=== PATIENT | male | born 1945 | race Caucasian/White ===

== ENCOUNTER 2018-06-21 12:46 | Outpatient (REF) | payer MEDICARE, SELFPAY ==
[2018-06-21 13:39] LABS: Hemoglobin A1C 5.9 % (4.5-6.2)
== END 2018-06-21 13:06 ==
LOC: LBN 12:46
PROVIDERS: PCP Family Medicine; Visit Provider Family Medicine
DX: E11.40 Type 2 diabetes mellitus with diabetic neuropathy, unspecified (principal)
CPT/HCPCS: 83036

== ENCOUNTER 2018-08-16 15:35 | Outpatient (REF) | payer MEDICARE, SELFPAY ==
[2018-08-16 16:38] LABS: Bilirubin Negative (Negative); Blood Small (Negative); Clarity Sl Cloudy; Glucose Negative (Negative); Ketones Trace mg/dL (Negative); Leukocyte Esterase Moderate (Negative); Nitrite Negative (Negative); Specific Gravity 1.015 (1.005-1.025); pH 6.5 (5-8)
[2018-08-16 16:44] LABS: Bacteria Many HPF (Negative); C & S Indicated? Yes; Casts Negative LPF (Negative); Crystals Negative HPF (Negative); Epithelial Cells Negative HPF (Negative); Mucus Negative (Negative); Other Cells Negative (Negative)
== END 2018-08-16 15:55 ==
LOC: LBN 15:35
PROVIDERS: PCP Family Medicine; Visit Provider Family Medicine
DX: N39.0 Urinary tract infection, site not specified (principal)
CPT/HCPCS: 87077; 81003; 81015; 87086; 87186

== ENCOUNTER 2018-09-17 11:49 | Outpatient (REF) | payer MEDICARE, SELFPAY ==
[2018-09-17 13:36] LABS: ALT 48 U/L (12-78); AST 30 U/L (15-37); Albumin 3.8 g/dL (3.4-5.0); Alkaline Phosphatase 128 U/L (46-116); Anion Gap 10.2 mmol/L (3-11); BUN 25 mg/dL (7-18); Bilirubin, Total 0.5 mg/dL (0.2-1.0); CO2 27.8 mmol/L (21.0-32.0); CREATININE 0.88 mg/dL (0.70-1.30); Calcium 9.3 mg/dL (8.5-10.1); Chloride 103 mmol/L (98-107); Cholesterol 121 mg/dL (50-200); Glucose 143 mg/dL (70-100); HDL Cholesterol 49 mg/dL (40-60); LDL CHOLESTEROL 59 mg/dL (<100); Sodium 141 mmol/L (136-145); Total Protein 7.7 g/dL (6.4-8.2); Triglyceride 45 mg/dL (30-150)
== END 2018-09-17 12:09 ==
LOC: LBN 11:49
PROVIDERS: PCP Family Medicine; Visit Provider Family Medicine
DX: I10 Essential (primary) hypertension (principal); E11.9 Type 2 diabetes mellitus without complications
CPT/HCPCS: 80053; 80061; 83721; 83036

== ENCOUNTER 2018-12-25 11:46 | Outpatient (REF) | payer MEDICARE, SELFPAY ==
[2018-12-25 13:55] LABS: Hemoglobin A1C 7.3 % (4.5-6.2)
== END 2018-12-25 12:06 ==
LOC: LBN 11:46
PROVIDERS: PCP Family Medicine; Visit Provider Family Medicine
DX: E11.40 Type 2 diabetes mellitus with diabetic neuropathy, unspecified (principal)
CPT/HCPCS: 83036

== ENCOUNTER 2019-03-17 15:58 | Outpatient (REF) | payer MEDICARE, SELFPAY ==
[2019-03-17 12:01] LABS: Hemoglobin A1C 6.6 % (4.5-6.2)
[2019-03-17 12:03] LABS: ALT 88 U/L (12-78); AST 56 U/L (15-37); Albumin 4.1 g/dL (3.4-5.0); Alkaline Phosphatase 140 U/L (46-116); Anion Gap 11.8 mmol/L (3-11); BUN 21 mg/dL (7-18); Bilirubin, Total 0.5 mg/dL (0.2-1.0); CO2 28.2 mmol/L (21.0-32.0); CREATININE 0.97 mg/dL (0.70-1.30); Calcium 8.9 mg/dL (8.5-10.1); Calculated LDL 74; Chloride 100 mmol/L (98-107); Cholesterol 149 mg/dL (50-200); Glucose 183 mg/dL (70-100); HDL Cholesterol 53 mg/dL (40-60); Sodium 140 mmol/L (136-145); Total Protein 8.1 g/dL (6.4-8.2); Triglyceride 112 mg/dL (30-150)
== END 2019-03-17 16:18 ==
LOC: LBN 15:58
PROVIDERS: PCP Family Medicine; Visit Provider Family Medicine
DX: E11.40 Type 2 diabetes mellitus with diabetic neuropathy, unspecified (principal); I10 Essential (primary) hypertension; I87.2 Venous insufficiency (chronic) (peripheral)
CPT/HCPCS: 80053; 80061; 83721; 83036

== ENCOUNTER 2019-05-06 09:19 | Outpatient (REF) | payer MEDICARE, SELFPAY ==
[2019-05-06 10:50] LABS: Hemoglobin A1C 6.3 % (4.5-6.2)
== END 2019-05-06 09:39 ==
LOC: LBN 09:19
PROVIDERS: PCP Family Medicine; Visit Provider Family Medicine
DX: E11.40 Type 2 diabetes mellitus with diabetic neuropathy, unspecified (principal)
CPT/HCPCS: 83036

== ENCOUNTER 2019-06-17 16:44 | Outpatient (REF) | payer MEDICARE, SELFPAY ==
[2019-06-17 15:02] LABS: BUN 20 mg/dL (7-18); CREATININE 0.78 mg/dL (0.70-1.30); Calcium 8.8 mg/dL (8.5-10.1); Chloride 102 mmol/L (98-107); Glucose 197 mg/dL (70-100); Potassium 4.3 mmol/L (3.5-5.1); Sodium 140 mmol/L (136-145)
[2019-06-17 15:25] LABS: Hemoglobin A1C 6.5 % (4.5-6.2)
== END 2019-06-17 17:04 ==
LOC: LBN 16:44
PROVIDERS: PCP Family Medicine; Visit Provider Nurse Practitioner Gerontology
DX: E11.9 Type 2 diabetes mellitus without complications (principal); I10 Essential (primary) hypertension
CPT/HCPCS: 80048; 83036

== ENCOUNTER 2019-09-16 11:36 | Outpatient (REF) | payer MEDICARE, MEDICAID, SELFPAY ==
[2019-09-16 12:48] LABS: Hemoglobin A1C 6.3 % (4.5-6.2)
[2019-09-16 13:06] LABS: ALT 39 U/L (16-63); AST 19 U/L (15-37); Alkaline Phosphatase 94 U/L (46-116); Anion Gap 10.8 mmol/L (3-11); BUN 15 mg/dL (7-18); Bilirubin, Total 0.6 mg/dL (0.2-1.0); CO2 29.2 mmol/L (21.0-32.0); CREATININE 0.69 mg/dL (0.70-1.30); Calcium 9.2 mg/dL (8.5-10.1); Calculated LDL 78 mg/dL; Chloride 102 mmol/L (98-107); Cholesterol 142 mg/dL (<200); Glucose 56 mg/dL (74-106); HDL Cholesterol 51 mg/dL (40-60); Potassium 4.1 mmol/L (3.5-5.1); Sodium 142 mmol/L (136-145); Total Protein 7.6 g/dL (6.4-8.2); Triglyceride 69 mg/dL (<150)
== END 2019-09-16 11:56 ==
LOC: LBO 11:36
PROVIDERS: PCP Family Medicine; Visit Provider Nurse Practitioner Gerontology
DX: I10 Essential (primary) hypertension (principal); E11.40 Type 2 diabetes mellitus with diabetic neuropathy, unspecified
CPT/HCPCS: 80053; 80061; 83036

== ENCOUNTER 2019-11-10 11:06 | Outpatient (REF) | payer MEDICARE, MEDICAID, SELFPAY ==
[2019-11-10 11:49] LABS: Anion Gap 9.3 mmol/L (3-11); BUN 25 mg/dL (7-18); CO2 26.7 mmol/L (21.0-32.0); CREATININE 1.41 mg/dL (0.70-1.30); Chloride 107 mmol/L (98-107); Estimated GFR 49.55 (mL/min/1.73m2); Glucose 112 mg/dL (74-106); Potassium 3.7 mmol/L (3.5-5.1); Sodium 143 mmol/L (136-145)
== END 2019-11-10 11:26 ==
LOC: LBN 11:06
PROVIDERS: PCP Family Medicine; Visit Provider Family Medicine
DX: I10 Essential (primary) hypertension (principal); E11.40 Type 2 diabetes mellitus with diabetic neuropathy, unspecified
CPT/HCPCS: 80048

== ENCOUNTER 2019-12-22 14:45 | Outpatient (REF) | payer MEDICARE, MEDICAID, SELFPAY ==
[2019-12-22 13:09] LABS: Anion Gap 11.4 mmol/L (3-11); BUN 18 mg/dL (7-18); CO2 26.6 mmol/L (21.0-32.0); CREATININE 0.82 mg/dL (0.70-1.30); Calcium 9.3 mg/dL (8.5-10.1); Chloride 101 mmol/L (98-107); Glucose 207 mg/dL (74-106); Potassium 4.3 mmol/L (3.5-5.1); Sodium 139 mmol/L (136-145)
[2019-12-22 13:24] LABS: Hemoglobin A1C 7.6 % (3.8-5.6)
== END 2019-12-22 15:05 ==
LOC: LBN 14:45
PROVIDERS: PCP Family Medicine; Visit Provider Family Medicine
DX: E11.40 Type 2 diabetes mellitus with diabetic neuropathy, unspecified (principal); I10 Essential (primary) hypertension; E11.65 Type 2 diabetes mellitus with hyperglycemia
CPT/HCPCS: 80048; 83036

== ENCOUNTER 2020-01-22 15:36 | Outpatient (REF) | payer MEDICARE, MEDICAID, SELFPAY ==
[2020-01-22 16:03] LABS: Anion Gap 11.8 mmol/L (3-11); BUN 28 mg/dL (7-18); CO2 24.2 mmol/L (21.0-32.0); CREATININE 0.97 mg/dL (0.70-1.30); Calcium 9.1 mg/dL (8.5-10.1); Chloride 99 mmol/L (98-107); Glucose 438 mg/dL (74-106); Potassium 4.5 mmol/L (3.5-5.1); Sodium 135 mmol/L (136-145)
[2020-01-22 16:11] LABS: Abs Immature Grans 0.02 k/cumm (0.0-0.09); Absolute Basophil Count 0.02 k/cumm (0.0-0.2); Absolute Eosinophil Count 0.15 k/cumm (0.0-0.7); Absolute Monocyte Count 0.84 k/cumm (0.11-0.7); Absolute Neutrophil Count 5.73 k/cumm (1.2-6.7); Basophils % 0.2; Eosinophils % 1.7; HCT 44.1 % (40.0-50.0); HGB 15.2 g/dL (13.5-17.5); Immature Grans % 0.2 %; Lymphocytes % 24.6; Mean Corp. HGB Concentration 34.5 g/dL (32.0-36.0); Mean Corpuscular Hemoglobin 31.5 pg (27.0-33.0); Mean Corpuscular Volume 91.3 fL (80-95); Mean Platelet Volume 11.9 fL (8.0-11.0); Monocytes % 9.4; Neutrophils % 63.9; Platelet Count 187 x1000/uL (130-400); RBC 4.83 m/cumm (4.50-6.00); RBC Distribution Width 12.6 % (11.8-14.1); White Blood Cell Count 8.96 k/cumm (4.4-10.8)
== END 2020-01-22 15:56 ==
LOC: NCHCN 15:36
PROVIDERS: Nurse Practitioner Gerontology; PCP Family Medicine; Visit Provider Family Medicine
DX: I10 Essential (primary) hypertension (principal)
CPT/HCPCS: 80048; 85025

== ENCOUNTER 2020-01-27 10:30 | Outpatient (REF) | payer MEDICARE, MEDICAID, SELFPAY ==
[2020-01-27 10:48] LABS: Abs Immature Grans 0.06 k/cumm (0.0-0.09); HCT 51.1 % (40.0-50.0); HGB 17.1 g/dL (13.5-17.5); Mean Corp. HGB Concentration 33.5 g/dL (32.0-36.0); Mean Corpuscular Hemoglobin 31.2 pg (27.0-33.0); Mean Corpuscular Volume 93.2 fL (80-95); Mean Platelet Volume 12.6 fL (8.0-11.0); Platelet Count 245 x1000/uL (130-400); RBC 5.48 m/cumm (4.50-6.00); RBC Distribution Width 13.1 % (11.8-14.1); White Blood Cell Count 18.74 k/cumm (4.4-10.8)
[2020-01-27 10:52] LABS: Anion Gap 19.4 mmol/L (3-11); BUN 61 mg/dL (7-18); CO2 19.6 mmol/L (21.0-32.0); CREATININE 2.81 mg/dL (0.70-1.30); Calcium 9.9 mg/dL (8.5-10.1); Chloride 108 mmol/L (98-107); Estimated GFR 22.29 (mL/min/1.73m2); Potassium 4.3 mmol/L (3.5-5.1); Sodium 147 mmol/L (136-145)
[2020-01-27 11:08] LABS: Glucose 947 mg/dL (74-106)
[2020-01-27 11:20] LABS: Absolute Basophil Count 0.19 k/cumm (0.0-0.2); Absolute Eosinophil Count 0.19 k/cumm (0.0-0.7)
[2020-01-27 11:21] LABS: Absolute Lymphocyte Count 1.31 k/cumm (1.2-3.4); Absolute Monocyte Count 1.69 k/cumm (0.11-0.7); Absolute Neutrophil Count 15.37 k/cumm (1.2-6.7); Diff Comment Manual Differential; RBC Morphology Normal
== END 2020-01-27 10:50 ==
LOC: LBN 10:30
PROVIDERS: PCP Family Medicine; Visit Provider Family Medicine
DX: R73.01 Impaired fasting glucose (principal); I10 Essential (primary) hypertension; R68.89 Other general symptoms and signs
CPT/HCPCS: 80048; 85025

== ENCOUNTER 2020-01-27 12:02 | Emergency (ER) | payer MEDICARE, MEDICAID, SELFPAY ==
[2020-01-27] VITALS (10 sets, daily range): BP systolic 98–115; BP diastolic 52–77; PULSE 92–107; RESP 25–41; TEMP 36.4–36.7; O2SAT 83–95
--- NOTE | 2020-01-27 12:21 | ED.GENADUL_ITS ---
Discharge Plan Disposition Patient Disposition: SNF (LEVEL 1) [facility] Condition: Improving Discharge Details Chief Complaint: Diabetes Clinical Impression: Altered mental status, Dehydration, Hypoxemia, Acute hyperglycemia Primary Care Provider: Jennifer Cool ED Provider: Erik Marrero Home Meds and New Rx's Prescriptions: No Action glycopyrrolate 1 mg tablet 0.5 mg PO BID RF: 0 venlafaxine 75 mg capsule,extended release 24hr 75 mg PO DAILY RF: 0 venlafaxine 150 mg capsule,extended release 24hr 150 mg PO DAILY RF: 0 acetaminophen [Tylenol Extra Strength] 500 mg Tablet 500 mg PO BID RF: 0 triamcinolone acetonide 0.025 % cream 0.025 TOPICAL DAILY RF: 0 amlodipine 10 mg tablet 10 mg PO DAILY RF: 0 simvastatin 20 mg tablet 20 mg PO DAILY RF: 0 metformin 1,000 mg tablet 1,000 mg PO DAILY RF: 0 nystatin 100,000 unit/gram cream TOPICAL RF: 0 aspirin 81 mg Tablet,Chewable 81 mg PO DAILY RF: 0 hydrochlorothiazide 25 mg tablet 25 mg PO DAILY RF: 0 ergocalciferol (vitamin D2) [Vitamin D2] 1,250 mcg (50,000 unit) Capsule 50,000 unit PO DAILY RF: 0 ketoconazole 2 % cream 2 TOPICAL RF: 0 lisinopril 40 mg tablet 40 mg PO DAILY RF: 0 docusate sodium 100 mg Tablet 200 mg PO DAILY RF: 0 finasteride 5 mg tablet 5 mg PO DAILY RF: 0 Basaglar KwikPen U-100 Insulin 100 unit/mL (3 mL) insulin pen 10 unit SUBCUT DAILY RF: 0 Basaglar KwikPen U-100 Insulin 100 unit/mL (3 mL) insulin pen 40 unit SUBCUT DAILY RF: 0 Discharge Instructions Additional Instructions: Patient does have a mild increase in his oxygen demand. I would recommend continuing him on 4 L currently. He is currently refusing admission here in the hospital and has returned to a normal mental status now and is requesting to go back to the [facility] very clearly and specifically. We will leave the IV in, please give a 500 cc bolus of lactated Ringer's tomorrow over 2 to 4 hours. Monitor closely for any fever, worsening symptoms or changes. I would recommend making sure he is sitting completely upright whenever he eats and drinks as there is concern that he may be aspirating, although there is no evidence of aspiration pneumonia currently. Please continue to monitor his blood sugar and administer insulin as indicated. Referrals: Jennifer Cool [Primary Care Provider] - Medical Decision Making 74-year-old male with a past medical history of high cholesterol, diabetes, who resides at the [facility], who is normally fairly functional, with a CODE STATUS of DNR, DNI, limited treatment, requesting no transport unless management cannot be met at facility. Patient presents today for change in his baseline. His mental status and energy is notably diminished today, labs showed notably elevated blood sugar and white count. He was transferred to the ER for further management. Currently the patient has no other complaints. No other modifying factors. Patient is otherwise notably limited historian, and history is certainly limited. Exam demonstrates decreased mental status, GCS is 11, secondary to decreased verbal response. Patient's request for intervention is certainly limited. We will rehydrate, evaluate for infectious etiology and acute abnormality, monitor closely and reassess. 4:50 PM Laboratory work-up is returned, the patient does have an elevated white count, moderate left shift, and appears that he does not have bands though. No evidence of neutropenia or thrombocytopenia. No signs of lymphopenia. Sodium is slightly elevated at 147, bicarb is stable though at 24, anion gap is only 15. Creatinine is notably elevated at 3 which is atypical for him, GFR is 20 which is atypical. Glucose is 900. Troponin is elevated at 0.11, EKG shows no evidence of STEMI. Suspect dehydration as a cause of strain. proBNP minimally elevated at 1200. Ammonia slightly elevated at 54. Urinalysis shows no evidence of urinary tract infection. Chest x-ray negative for acute process or infection. CT scan of the head negative for acute process. Uncertain as to where the patient's white count is coming from, he shows no signs of clinical meningitis at this time. His wishes are clear that he wants notably limited intervention. We will give Xifaxan for the elevated ammonia level, I did contact Dr. Gómez, as well as the patient's Sister Shannon, and discussed with him the patient's wishes for how much more he would want done. At this time they do recommend keeping him overnight for fluids if he is not able to refuse, but do not want anything else aggressively done on the patient. We will continue to monitor his sugars. He has come down to 500 after an initial 20 and then a second 20 unit subcu bolus of insulin. On reassessment the patient's mental status is slightly improved with a liter of fluid, we will give an additional 500 cc of LR. We will continue to monitor closely, contact the hospitalist and admit. 5:20 PM On reassessment I went in to tell the patient with new plan he has had a notable mental status change towards improvement. He is now talking well, and I told him that I would like to admit him and he became very aggressive and said no no no, I want to go to the [facility]. I do not want to be in the hospital. I did contact Dr. Gómez, discussed this with her, as the patient's advanced directive state DNR/DNI limited with request not to transfer, and with the patient make any specific requests we will respect his wishes. Chest x-ray is negative for pneumonia, the patient has had mild hypoxemia here and is requiring 3 to 4 L of oxygen. Otherwise he looks very stable. With no evidence of a source of infection I do not feel that antibiotic treatment is indicated at this time. We will test for flu and COVID and I discussed this with the managing provider at the [facility]. They already have him in isolation as it is. The patient did have slight sputtering when he did drink some water here, I do wonder if there is a component of irritation or aspiration although there is no radiographic evidence of that at this time. Recommend that his facility they monitor him closely for any worsening of his symptoms. Again however at this time he has made it very clear that he wants to go back and does not want to be admitted. Respecting his wishes he will be brought back to the [facility]. This was all discussed with Dr. Gómez, she agrees and we will send the patient back to the [facility]. Also of note the patient's sugar has notably improved, this may certainly be a component of his initial symptomatology as well. There may have been a component of HH NK. Blood glucose is currently 328. EKG 12: 17 Rate 106, intervals stable, sinus tachycardia, no significant ST elevations or depressions, no evidence of STEMI. FINDINGS: Noncontrast cranial CT was performed. There is significant motion artifact which limits interpretation. There is moderate generalized cerebral atrophy. There is no evidence of acute intracranial hemorrhage, mass effect, or midline shift. The visualized paranasal sinuses and mastoid air cells are clear. The orbital and temporal bone structures appear intact as visualized. IMPRESSION: No evidence of acute intracranial process. FINDINGS: Portable AP view was obtained. The patient was unable to cooperate. There is cardiac enlargement. Lungs as visualized appear grossly clear. Left lower lobe poorly visualized due to positioning and cardiomegaly. IMPRESSION: Cardiomegaly, no gross intrapulmonary process. Left lung base not well visualized. HPI General Date/Time Provider Initiated Documentation: 01/27/20 12:03 . HPI Narrative: 74-year-old male with a past medical history of high cholesterol, diabetes, who resides at the [facility], who is normally fairly functional, with a CODE STATUS of DNR, DNI, limited treatment, requesting no transport unless management cannot be met at facility. Patient presents today for change in his baseline. His mental status and energy is notably diminished today, labs showed notably elevated blood sugar and white count. He was transferred to the ER for further management. Currently the patient has no other complaints. No other modifying factors. Patient is otherwise notably limited historian, and history is certainly limited. Related Data Home Medications Medication Instructions Recorded Confirmed acetaminophen [Tylenol Extra 500 mg PO BID 01/27/20 01/27/20 Strength] amlodipine 10 mg PO DAILY 01/27/20 01/27/20 aspirin 81 mg PO DAILY 01/27/20 01/27/20 docusate sodium 200 mg PO DAILY 01/27/20 01/27/20 ergocalciferol (vitamin D2) 50,000 unit PO DAILY 01/27/20 01/27/20 [Vitamin D2] finasteride 5 mg PO DAILY 01/27/20 01/27/20 glycopyrrolate 0.5 mg PO BID 01/27/20 01/27/20 hydrochlorothiazide 25 mg PO DAILY 01/27/20 01/27/20 insulin glargine [Basaglar KwikPen 10 unit SUBCUT DAILY 01/27/20 01/27/20 U-100 Insulin] insulin glargine [Basaglar KwikPen 40 unit SUBCUT DAILY 01/27/20 01/27/20 U-100 Insulin] ketoconazole 2 TOPICAL 01/27/20 lisinopril 40 mg PO DAILY 01/27/20 01/27/20 metformin 1,000 mg PO DAILY 01/27/20 01/27/20 nystatin TOPICAL 01/27/20 01/27/20 simvastatin 20 mg PO DAILY 01/27/20 01/27/20 triamcinolone acetonide 0.025 TOPICAL DAILY 01/27/20 venlafaxine 75 mg PO DAILY 01/27/20 01/27/20 venlafaxine 150 mg PO DAILY 01/27/20 01/27/20 Allergies Allergy/AdvReac Type Severity Reaction Status Date / Time NSAIDS (Non-Steroidal Allergy Unverified 01/27/20 17:17 Anti-Inflamma General Stated Complaint: Diabetes JANE: 2 Review of Systems All systems reviewed & are unremarkable except as noted in HPI and below [facility] Medical History (Updated 01/27/20 @ 18:05 by Erik Marrero DO) Bipolar disorder (Chronic) Diabetes mellitus (Chronic) Hypertension (Chronic) Social History Substance use type: does not use Exam Narrative Exam Narrative: 1.Const: Well-nourished, Well-developed, appearing stated age 2.Eyes: PERRL, no conjunctival injection, and symmetrical lids. 3.ENT: Atraumatic external nose and ears. Notably dry MM. Neck: Symmetric, trachea midline, No thyromegaly. No nuchal rigidities, no clinical evidence of meningitis. 4.CVS: +S1/S2, No murmurs or gallops. Peripheral pulses 2+ and equal in all extremities. Brisk capillary refill in all extremities. 5.RESP: Crackles in the bases bilaterally. No wheezes or rhonchi. 6.GI: Soft, Nontender/Nondistended, No hepatosplenomegaly. No guarding or rebound. 7.MSK: Normocephalic/Atraumatic, Extremities w/o deformity or ttp No cyanosis or clubbing, Normal movement of all extremities 8.Skin: Warm, Dry. No rashes or lesions. 9.Neuro: tack maker II-XII grossly intact. Sensation grossly intact 10.Psych: (AAO) x0. Altered, pleasantly confused, GCS is currently 11 secondary to decreased verbal response. Course Vital Signs Vital signs: Vital Signs Temperature 36.7 C 01/27/20 12:06 Pulse 107 H 01/27/20 12:06 Respiratory Rate 35 H 01/27/20 12:06 Blood Pressure 109/65 01/27/20 12:06 Pulse Oximetry 83 L 01/27/20 12:06 Temperature 36.7 C 01/27/20 12:06 Temperature Source Temporal Artery Scan 01/27/20 12:06 Pulse 107 H 01/27/20 12:06 Respiratory Rate 35 H 01/27/20 12:06 Respiratory Effort 01/27/20 12:12 Blood Pressure 109/65 01/27/20 12:06 Pulse Oximetry 83 L 01/27/20 12:06 Oxygen Delivery Method Room Air 01/27/20 12:06 Oxygen Flow Rate 0 01/27/20 12:06
[2020-01-27] MEDS: Normal Saline 1,000 ML 1000 ML IV (12:33)
[2020-01-27 12:54] LABS: Abs Immature Grans 0.07 k/cumm (0.0-0.09); HCT 49.6 % (40.0-50.0); HGB 16.8 g/dL (13.5-17.5); Mean Corp. HGB Concentration 33.9 g/dL (32.0-36.0); Mean Corpuscular Hemoglobin 31.1 pg (27.0-33.0); Mean Corpuscular Volume 91.7 fL (80-95); Mean Platelet Volume 12.1 fL (8.0-11.0); Platelet Count 234 x1000/uL (130-400); RBC 5.41 m/cumm (4.50-6.00); RBC Distribution Width 13.2 % (11.8-14.1); White Blood Cell Count 18.67 k/cumm (4.4-10.8)
--- NOTE | 2020-01-27 12:54 | NUR.NOTE ---
straight cath for urine spec technology professional. tolerated well. 200mls drained from bladder, dark yellow, sent to lab for spec
[2020-01-27 12:59] LABS: Bilirubin Negative (Negative); Blood Small (Negative); Clarity Clear (Clear); Glucose >=1000 mg/dL (Negative); Ketones Trace mg/dL (Negative); Leukocyte Esterase Negative (Negative); Nitrite Negative (Negative); Urobilinogen 0.2 EU/dL (Up TO 0.2)
[2020-01-27 13:03] LABS: Ammonia 54 umol/L (11-32)
[2020-01-27 13:06] LABS: Diff Comment Manual Differential
[2020-01-27 13:07] LABS: Absolute Lymphocyte Count 2.99 k/cumm (1.2-3.4); Absolute Monocyte Count 0.56 k/cumm (0.11-0.7); Absolute Neutrophil Count 15.12 k/cumm (1.2-6.7); Atypical Lymphocytes % 6; RBC Morphology Normal
[2020-01-27 13:11] LABS: Epithelial Cells Rare HPF (Negative); RBC 0-2 HPF (0-2); WBC 0-2 HPF (0-5)
[2020-01-27 13:12] LABS: Bacteria Few HPF (Negative); C & S Indicated? No; Casts Negative LPF (Negative); Crystals Negative HPF (Negative); Mucus Trace (Negative); Other Cells Negative (Negative)
[2020-01-27 13:13] LABS: ALT 52 U/L (16-63); AST 42 U/L (15-37); Albumin 3.8 g/dL (3.4-5.0); Alkaline Phosphatase 113 U/L (46-116); BUN 65 mg/dL (7-18); Bilirubin, Total 0.6 mg/dL (0.2-1.0); CREATININE 3.09 mg/dL (0.70-1.30); Calcium 9.9 mg/dL (8.5-10.1); Chloride 108 mmol/L (98-107); Estimated GFR 19.98 (mL/min/1.73m2); Potassium 3.8 mmol/L (3.5-5.1); Sodium 147 mmol/L (136-145); TSH (W/Ref FT4) 0.56 uIU/mL (0.36-3.74)
[2020-01-27 13:15] LABS: Glucose 913 mg/dL (74-106)
[2020-01-27 13:16] LABS: Troponin I 0.11 ng/Ml (<0.06)
--- NOTE | 2020-01-27 13:20 | DI.CT_ITS ---
EXAM: CT HEAD WO CLINICAL HISTORY: altered TECHNIQUE: COMPARISON: No exams were available for comparison FINDINGS: Noncontrast cranial CT was performed. There is significant motion artifact which limits interpretati on. There is moderate generalized cerebral atrophy. There is no evidence of acute intracranial hemorrhag e, mass effect, or midline shift. The visualized paranasal sinuses and mastoid air cells are clear. The orbital and temporal bone structures appear intact as visualized. IMPRESSION: No evidence of acute intracranial process.
--- NOTE | 2020-01-27 13:25 | DI.RAD_ITS ---
EXAM: XR CHEST 1V IN DI DEPT CLINICAL HISTORY: cough, r/o pneumonia TECHNIQUE: COMPARISON: No exams were available for comparison FINDINGS: Portable AP view was obtained. The patient was unable to cooperate. There is cardiac enlargement. Lungs as visualized appear grossly clear. Left lower lobe poorly visualized due to positioning and c ardiomegaly. IMPRESSION: Cardiomegaly, no gross intrapulmonary process. Left lung base not well visualized.
[2020-01-27] MEDS: Insulin REGULAR-Human 100 UNITS/ML UNIT 25 UNITS SC (13:37)
[2020-01-27] MEDS: Normal Saline 500 ML IV (14:04)
[2020-01-27 14:10] LABS: NT-proBNP 1271 pg/mL (<300)
--- NOTE | 2020-01-27 14:12 | NUR.NOTE ---
finger stick, reads high on meter
[2020-01-27] MEDS: Insulin REGULAR-Human 100 UNITS/ML UNIT 20 UNITS SC (14:25)
--- NOTE | 2020-01-27 15:04 | NUR.NOTE ---
repositioned on R side
--- NOTE | 2020-01-27 15:07 | NUR.NOTE ---
finger stick completed, results read high
--- NOTE | 2020-01-27 16:24 | NUR.NOTE ---
finger stick 502. repositioned on L side
[2020-01-27] MEDS: Lactated Ringers 500 ML IV (17:00)
--- NOTE | 2020-01-27 17:00 | NUR.NOTE ---
1st BC obtained with IV start
--- NOTE | 2020-01-27 17:14 | NUR.NOTE ---
semiconductor lab technician obtained second BC set from L hand. flu and covid swabs collected and sent to lab. pt alert, not answering questions. pad dry. noted to have skin abrasions with scabs forming on R elbow posterior lower arm.
[2020-01-27 23:53] LABS: COVID-19 RT-PCR UVMMC Result Negative (Negative)
== END 2020-01-27 16:30 | disposition skilled nursing facility (03) ==
PROVIDERS: Emergency Provider Student in an Organized Health Care Education/Training Program; PCP Family Medicine
DX: R41.82 Altered mental status, unspecified (principal); E86.0 Dehydration; R09.02 Hypoxemia; R06.89 Other abnormalities of breathing; I10 Essential (primary) hypertension; E11.65 Type 2 diabetes mellitus with hyperglycemia; Z79.4 Long term (current) use of insulin
CPT/HCPCS: 36416; 80053; 82962; 87040; 87449; 93005; 96360; 96361; 96372; 99285; U0003; 70450; 71045; 81003; 81015; 82140; 83880; 84443; 84484; 85025; 93010; 99284

== ENCOUNTER 2020-02-02 16:42 | Outpatient (REF) | payer MEDICARE, MEDICAID, SELFPAY ==
[2020-02-02 16:45] LABS: Abs Immature Grans 0.05 k/cumm (0.0-0.09); Absolute Basophil Count 0.02 k/cumm (0.0-0.2); Absolute Eosinophil Count 0.19 k/cumm (0.0-0.7); Absolute Lymphocyte Count 2.43 k/cumm (1.2-3.4); Absolute Monocyte Count 1.25 k/cumm (0.11-0.7); Basophils % 0.2; Eosinophils % 1.5; HCT 46.2 % (40.0-50.0); HGB 15.1 g/dL (13.5-17.5); Immature Grans % 0.4 %; Lymphocytes % 19.7; Mean Corp. HGB Concentration 32.7 g/dL (32.0-36.0); Mean Corpuscular Hemoglobin 31.1 pg (27.0-33.0); Mean Corpuscular Volume 95.3 fL (80-95); Mean Platelet Volume 13.4 fL (8.0-11.0); Monocytes % 10.1; Neutrophils % 68.1; Platelet Count 175 x1000/uL (130-400); RBC 4.85 m/cumm (4.50-6.00); RBC Distribution Width 13.6 % (11.8-14.1); White Blood Cell Count 12.34 k/cumm (4.4-10.8)
[2020-02-02 17:18] LABS: ALT 56 U/L (16-63); AST 33 U/L (15-37); Alkaline Phosphatase 139 U/L (46-116); Anion Gap 12.8 mmol/L (3-11); BUN 37 mg/dL (7-18); Bilirubin, Total 0.4 mg/dL (0.2-1.0); CO2 24.2 mmol/L (21.0-32.0); CREATININE 1.48 mg/dL (0.70-1.30); Calcium 8.7 mg/dL (8.5-10.1); Chloride 112 mmol/L (98-107); Estimated GFR 46.72 (mL/min/1.73m2); Glucose 422 mg/dL (74-106); NT-proBNP 220 pg/mL (<300); Potassium 4.2 mmol/L (3.5-5.1); Sodium 149 mmol/L (136-145); Total Protein 7.5 g/dL (6.4-8.2)
== END 2020-02-02 17:02 ==
LOC: LBN 16:42
PROVIDERS: PCP Family Medicine; Visit Provider Family Medicine
DX: E11.8 Type 2 diabetes mellitus with unspecified complications (principal); I10 Essential (primary) hypertension; F31.9 Bipolar disorder, unspecified; R06.89 Other abnormalities of breathing
CPT/HCPCS: 80053; 83880; 85025

== ENCOUNTER 2020-03-02 19:18 | Outpatient (REF) | payer MEDICARE, MEDICAID, SELFPAY ==
[2020-03-02 16:42] LABS: HCT 46.5 % (40.0-50.0); HGB 15.6 g/dL (13.5-17.5); Mean Corp. HGB Concentration 33.5 g/dL (32.0-36.0); Mean Corpuscular Hemoglobin 30.4 pg (27.0-33.0); Mean Corpuscular Volume 90.6 fL (80-95); Mean Platelet Volume 11.2 fL (8.0-11.0); Platelet Count 162 x1000/uL (130-400); RBC 5.13 m/cumm (4.50-6.00); RBC Distribution Width 13.5 % (11.8-14.1); White Blood Cell Count 7.12 k/cumm (4.4-10.8)
[2020-03-02 16:46] LABS: Anion Gap 7.7 mmol/L (3-11); BUN 17 mg/dL (7-18); CO2 27.3 mmol/L (21.0-32.0); CREATININE 0.78 mg/dL (0.70-1.30); Chloride 102 mmol/L (98-107); Glucose 129 mg/dL (74-106); Potassium 4.1 mmol/L (3.5-5.1); Sodium 137 mmol/L (136-145)
== END 2020-03-02 19:38 ==
LOC: LBN 19:18
PROVIDERS: PCP Family Medicine; Visit Provider Family Medicine
DX: D64.9 Anemia, unspecified (principal); E11.9 Type 2 diabetes mellitus without complications
CPT/HCPCS: 80048; 85027

== ENCOUNTER 2020-04-02 10:48 | Outpatient (REF) | payer MEDICARE, MEDICAID, SELFPAY ==
[2020-04-02 11:55] LABS: Anion Gap 11.3 mmol/L (3-11); BUN 18 mg/dL (7-18); CO2 24.7 mmol/L (21.0-32.0); CREATININE 0.88 mg/dL (0.70-1.30); Chloride 103 mmol/L (98-107); Glucose 237 mg/dL (74-106); Sodium 139 mmol/L (136-145)
== END 2020-04-02 11:08 ==
LOC: LBN 10:48
PROVIDERS: PCP Family Medicine; Visit Provider Family Medicine
DX: E11.9 Type 2 diabetes mellitus without complications (principal); F31.81 Bipolar II disorder; G20 Parkinson's disease
CPT/HCPCS: 80048

== ENCOUNTER 2020-04-28 12:37 | Outpatient (CLI) | payer MEDICARE, MEDICAID, SELFPAY ==
--- NOTE | 2020-04-28 | DI.RAD_ITS ---
EXAM: XR SHOULDER RT COMPLETE 2+V CLINICAL HISTORY: CONTINUED PAIN, IMMOBILITY, ? FX HUMERUS/DISLOCATION TECHNIQUE: 2D digital imaging was performed. COMPARISON: CR XR CHEST 1V IN DI DEPT from 01/27/2020 FINDINGS: A single view was performed. Humeral head is dislocated anteriorly and inferomedially with respect t o the glenoid. There is a fracture fragment from the lateral aspect of the humeral head which is sig nificantly displaced laterally and inferiorly. There is spurring at the AC joint and glenoid. There is a fracture right 4th rib of indeterminate age. It was not seen on chest x-ray of 27 January 2020. No pneumothorax is seen. IMPRESSION: Anterior shoulder dislocation with fracture of the humeral head.
== END 2020-04-28 12:57 ==
PROVIDERS: PCP Family Medicine; Visit Provider Family Medicine
DX: S42.201A Unspecified fracture of upper end of right humerus, initial encounter for closed fracture (principal)
CPT/HCPCS: 73030

== ENCOUNTER 2020-04-28 14:20 | Observation (INO) | payer MEDICARE, MEDICAID, SELFPAY ==
[2020-04-28] VITALS (40 sets, daily range): BP systolic 147–204; BP diastolic 70–97; PULSE 75–103; RESP 17–33; TEMP 37.1–37.3; O2SAT 91–96
--- NOTE | 2020-04-28 14:49 | ED.GENADUL_ITS ---
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 He had initial x-rays with a fracture dislocation of the right shoulder. Initial attempts at reduction in the ED were unsuccessful and therefore he was recommended to proceed to the OR once he was adequately NPO. However, The [facility] was unable to transport him back and forth so he was admitted overnight for obversation for pain control and closed reduction vs ORIF in the morning. He was taken to the operating room on HD#2. Discharge Instructions Additional Instructions: Activity: You should stay in the sling at all times. It may be removed for hygiene but the arm should stay on your belly or chest, in front of you. Do NOT attempt to use it for reaching or pushing off. Medications: - You should take Acetaminophen and Ibuprofen for pain control. - Keep ice applied to the shoulder. Discharge Data Discharge Date/Time-TO BE ENTERED AT DEPARTURE: 04/28/20 19:35 Medical Decision Making <CODY Angeles - Last Filed: 04/29/20 08:07> 74-year-old gentleman presents to the ER with a known right humeral fracture and dislocation. Dr. Angeles has been paged. In the meantime we are trying to get records from the [facility] for additional information. Dr. Angeles did come to the ER to evaluate the patient, please see his note. As we do not know his baseline mental status will obtain CT of his head. We are still trying to obtain records from the long-term. It is unknown when he last ate, what his baseline mental status is, or if he is his own healthcare proxy. I was able to speak with Dr. Gómez, the physician for the long-term. She reports the patient is a DNR-DNI. He apparently was found this morning lying on the ground near his bed with a pillow under his head. There is no other obvious trauma, a fall was unwitnessed. He seemed to be at baseline at that time. He did eat breakfast and lunch. He does have a long psychiatric history, is fairly quiet at baseline with occasional outbursts. He is his own healthcare proxy. Head CT pending at sign of patient transfer care to CODY Vang. Medical Records Medical records reviewed: Yes I reviewed the patient's medical records. Imaging Data Radiologic Study: Attestation: I personally reviewed and interpreted this imaging study as follows: Imaging: X-Ray My impression: Anterior shoulder dislocation with fracture of the humeral head. <CODY Hovoer - Last Filed: 04/28/20 21:27> Transition to myself from Kiran Esparza PA-C with shoulder reduction and head CT pending. Please review his initial note for history and presentation. In brief, patient is a 74-year-old gentleman who resides at the [facility] presenting for evaluation of right shoulder pain. Patient suffered an unwitnessed fall. Was found to be in his room by staff. Outpatient x-ray was ordered showing impacted and dislocated right shoulder. They advised that the patient is at his mental baseline. He is not endorsing headache or head injury. He was resting on his pillow when they found him. There was question about patient's mental capacity, he is his own healthcare proxy, patient is legally independent. Last ate at noon. Head CT was ordered to evaluate for any intracranial pathology as it was unclear how the patient may have fallen. Patient reports to me that he pulled out of his bed landing on his right shoulder. CT reviewed by radiologist: FINDINGS: Brain: Normal. No hemorrhage. Unremarkable white matter. No mass effect. Ventricles: Normal. No ventriculomegaly. Bones/joints: Unremarkable. No acute fracture. Sinuses: Visualized sinuses are unremarkable. No fluid levels. Mastoid air cells: Visualized mastoid air cells are well aerated. Soft tissues: Unremarkable. IMPRESSION: No acute intracranial abnormality Patient and I discussed risks/benefits as well as expected procedural steps of reduction under procedural sedation. He voices understanding and wishes to proceed. Varbal consent obtained. Time out was preformed. Patient remained on monitor during procedure. Please see Dr. Angeles's note. Patient did tolerate this well. 0.5 mg of Ativan and 100 mcg of fentanyl were administered. Patient was able to relax for reduction but patient persistently would pop out. Dr. Angeles was concerned that patient is very unstable and will need surgical fixation. Postreduction film was obtained showing persistently dislocated shoulder. Dr. Angeles did review these films. Plan is for patient to go for surgical fixation of this at 730 tomorrow morning. His dislocation is too unstable to remain in place at this time. He is currently comfortable and in a sling. Will consult with the [facility] regarding transportation. Patient remains neurovascularly intact. Contacted the [facility]. They are unable to provide transportation from their facility here tomorrow morning for surgical intervention. Spoke again with Dr. Angeles. For this reason, plan to keep the patient overnight so that his surgical intervention may be performed without delay. Patient continues to be comfortable while here. Discussed transportation issue Dr. Angeles who agrees to admission. Discussed this plan with the patient who is in agreement. All his questions and concerns were addressed. HPI <CODY Angeles - Last Filed: 04/29/20 08:07> General Mode of arrival: EMS . Date/Time Provider Initiated Documentation: 04/28/20 14:27 . Limitations to Documentation: other (Baseline mental status) . Information obtained by: patient and EMS . HPI Narrative: 74-year-old gentleman who resides at the [facility]. He has a history of hypertension, diabetes, bipolar. He apparently had a fall this morning injuring his right shoulder. After he was displaying increased pain and limited range of motion he was sent to diagnostic imaging as an outpatient to have a x-ray. In diagnostic imaging he was noted to have a right humeral fracture-dislocation and sent to the ER for further ev aluation. Patient is a rather vague and poor historian, unable to tell me exactly what happened. We are in the process of trying to obtain records from the [facility]. Denies any other injury or trauma. Patient does report right shoulder pain. Related Data Home Medications Medication Instructions Recorded Confirmed acetaminophen [Tylenol Extra 500 mg PO BID 01/27/20 04/28/20 Strength] amlodipine 10 mg PO DAILY 01/27/20 04/28/20 aspirin 81 mg PO DAILY 01/27/20 04/28/20 docusate sodium 200 mg PO DAILY 01/27/20 04/28/20 ergocalciferol (vitamin D2) 50,000 unit PO DAILY 01/27/20 04/28/20 [Vitamin D2] finasteride 5 mg PO DAILY 01/27/20 04/28/20 glycopyrrolate 0.5 mg PO BID 01/27/20 04/28/20 hydrochlorothiazide 12.5 mg PO DAILY 01/27/20 04/28/20 insulin glargine [Basaglar KwikPen 20 unit SUBCUT HS 01/27/20 04/28/20 U-100 Insulin] insulin glargine [Basaglar KwikPen 40 unit SUBCUT DAILY 01/27/20 04/28/20 U-100 Insulin] lisinopril 40 mg PO DAILY 01/27/20 04/28/20 simvastatin 20 mg PO DAILY 01/27/20 04/28/20 venlafaxine 75 mg PO DAILY 01/27/20 04/28/20 venlafaxine 150 mg PO DAILY 01/27/20 04/28/20 insulin aspart U-100 [Novolog See Protocol SUBCUT QA 04/28/20 Flexpen U-100 Insulin] Allergies Allergy/AdvReac Type Severity Reaction Status Date / Time NSAIDS (Non-Steroidal Allergy Unverified 04/28/20 14:30 Anti-Inflamma General Stated Complaint: Orthopedic JANE: 3 Review of Systems <CODY Angeles - Last Filed: 04/29/20 08:07> Unobtainable due to mental condition [facility] <CODY Angeles - Last Filed: 04/29/20 08:07> Medical History Antisocial personality disorder (Acute) Bipolar disorder (Chronic) Chronic kidney disease (Acute) Depression (Chronic) Diabetes mellitus (Chronic) Hypertension (Chronic) Parkinson disease (Chronic) Thrombocytopenia (Chronic) Venous insufficiency (Acute) Social History Smoking/Tobacco Use Status: Former Tobacco Use Alcohol Intake: former Substance use type: does not use Additional Social history: pt at the [facility] Exam <CODY Angeles - Last Filed: 04/29/20 08:07> Const General: cooperative, healthy appearing, comfortable and no acute distress Orientation: alert, awake and other (Difficult to determine secondary to his mental status) [facility] Head: normal to inspection, no palpable skull fracture, normocephalic and atraumatic Face and sinus: normal facial exam Mouth: moist mucous membranes Eyes Conjunctivae: conjunctivae normal Sclera: sclerae normal Neck Neck: normal visual inspection, full ROM, trachea midline, supple and nontender Resp Effort & Inspection: normal respiratory effort and able to speak in complete sentences Auscultation: clear to auscultation bilaterally Cardio Rate: regular rate Rhythm: regular rhythm GI Palpation: soft and nontender Back/Spine/Pelvis Back: No back tenderness Skin General skin exam: no rashes or lesions noted Neuro General: patient alert, patient awake, oriented Patient Orientation: Person, Place and Confused (Unsure of date), moves all extremities, no focal motor deficits and other (As above, difficult to assess secondary to mental status) Motor: muscle tone normal throughout Sensory Exam: no sensory deficits noted Extrem Right upper extremity: normal capillary refill and shoulder/upper arm Details: tenderness Location: of the proximal humerus, axillary nerve sensory function normal and abnormal ROM Left upper extremity: normal to inspection, full ROM and normal capillary refill Right lower extremity: normal to inspection, full ROM and normal capillary refill Left lower extremity: normal to inspection, full ROM and normal capillary refill Psych Appearance: grossly normal Mental Status: mental status grossly normal Course <CODY Angeles - Last Filed: 04/29/20 08:07> Vital Signs Vital signs: Vital Signs Temperature 37.1 C 04/28/20 14:22 Pulse 103 H 04/28/20 14:22 Respiratory Rate 18 04/28/20 14:22 Blood Pressure 168/82 H 04/28/20 14:22 Pulse Oximetry 91 L 04/28/20 14:22 Temperature 37.1 C 04/28/20 14:22 Temperature Source Temporal Artery Scan 04/28/20 14:22 Pulse 103 H 04/28/20 14:22 Respiratory Rate 18 04/28/20 14:22 Respiratory Effort Non-Labored 04/28/20 14:28 Blood Pressure 168/82 H 04/28/20 14:22 Blood Pressure Position Supine 04/28/20 14:22 Pulse Oximetry 91 L 04/28/20 14:22 Oxygen Delivery Method Room Air 04/28/20 14:22 Oxygen Flow Rate 0 04/28/20 14:22 Pain Level 10 04/28/20 14:22 Sign Out <CODY Angeles - Last Filed: 04/29/20 08:07> Sign Out Data: Sign Out Comment: Pending head CT, reevaluation by Dr. Angeles. Last updated by Ashwin Esparza PA at 04/28/20 16:24
--- NOTE | 2020-04-28 15:30 | DI.CT_ITS ---
EXAM: CT HEAD WO CLINICAL HISTORY: fall, ams. TECHNIQUE: Imaging Protocol: Axial computed tomography images with coronal and sagittal reformatted images were created and reviewed COMPARISON: No exams were available for comparison FINDINGS: Ventricles and Extra axial spaces: Normal in size and morphology for the patient's age. Hemorrhage: None. Cerebral parenchyma: Mild atrophy. Mild white matter changes consistent with small vessel disease. Midline shift: None. Brainstem/Cerebellum: Normal. Calvarium: Normal. Visualized Paranasal sinuses/Mastoids: Clear. IMPRESSION: No acute abnormality. RADIATION DOSE DELIVERED: 922.97mGy.cm Total DLP 922.97mGy.cm Total DLP DATA REPOSITORY: All CT scans at this facility are submitted to the National Radiology Data Registry (NRDR) Dose Index Registry (DIR) with the [employer] (ACR). RADIATION OPTIMIZATION: All CT scans at this facility use at least one of these dose optimization te chniques: automated exposure control; mA and/or kV adjustment per patient size (includes targeted exa ms where dose is matched to clinical indication); or iterative reconstruction.
--- NOTE | 2020-04-28 16:50 | DI.VRAD_ITS ---
PROCEDURE INFORMATION: Exam: CT Head Without Contrast Exam date and time: 04/28/2020 4:25 PM Age: 74 years old Clinical indication: Injury or trauma; Fall; Injury details: Fell, hit head, dislocated shoulder TECHNIQUE: Imaging protocol: Computed tomography of the head without contrast. COMPARISON: CT HEAD WO 01/27/2020 1:17 PM FINDINGS: Brain: Normal. No hemorrhage. Unremarkable white matter. No mass effect. Ventricles: Normal. No ventriculomegaly. Bones/joints: Unremarkable. No acute fracture. Sinuses: Visualized sinuses are unremarkable. No fluid levels. Mastoid air cells: Visualized mastoid air cells are well aerated. Soft tissues: Unremarkable. IMPRESSION: No acute intracranial abnormality. Dictated and Authenticated by: Geovani Bhakta MD. Ordering:VISHNU Christopher MD
--- NOTE | 2020-04-28 17:41 | DI.RAD_ITS ---
EXAM: XR SHOULDER RT COMP POST REDUC CLINICAL HISTORY: post reduction. TECHNIQUE: 2D digital imaging was performed. COMPARISON: CR XR SHOULDER RT COMPLETE 2+V from 04/28/2020 FINDINGS: Two additional views of the right shoulder performed portably. There has been no change in the posit ion of the humeral head, dislocated anteriorly and inferiorly with respect to the glenoid. A fractur e fragment is again noted from the humeral head which is significantly displaced. No glenoid fractur e is visible. IMPRESSION: No change in anterior shoulder dislocation with fracture of the humeral head. DATA REPOSITORY: RADIATION DOSE DELIVERED:
[2020-04-28] MEDS: LORazepam 2 MG/ML VIAL 0.5 MG IVP (17:47)
[2020-04-28] MEDS: fentaNYL 100 MCG/2 ML VIAL IVP (17:50)
--- NOTE | 2020-04-28 18:07 | DI.VRAD_ITS ---
PROCEDURE INFORMATION: Exam: XR Right Shoulder Exam date and time: 04/28/2020 5:53 PM Age: 74 years old Clinical indication: Pain; Shoulder; Right TECHNIQUE: Imaging protocol: XR Right shoulder. Views: 2 or more views. COMPARISON: CR XR SHOULDER RT COMPLETE 2+V 04/28/2020 1:57 PM FINDINGS: Bones/joints: Anterior dislocation of the glenohumeral joint.No definite associated fracture. Soft tissues: Normal. IMPRESSION: Anterior dislocation of the glenohumeral joint.No definite associated fracture. Dictated and Authenticated by: Geovani Bhakta MD. Ordering:WESTLEY Brasher MD
[2020-04-28 18:52] LABS: Abs Immature Grans 0.03 10^3/uL (0.0-0.06); Absolute Basophil Count 0.01 10^3/uL (0.0-0.2); Absolute Eosinophil Count 0.01 10^3/uL (0.0-0.7); Absolute Lymphocyte Count 1.37 10^3/uL (1.2-3.4); Absolute Monocyte Count 1.12 10^3/uL (0.1-0.8); Basophils % 0.1; Eosinophils % 0.1; HCT 39.1 % (40.0-50.0); HGB 13.5 g/dL (13.5-17.5); Immature Grans % 0.3; Lymphocytes % 12.5; MCH 31.3 pg (27.0-33.0); MCHC 34.5 % (32.0-36.0); MCV 90.5 fL (80-95); MPV 10.8 fL (8.0-11.0); Monocytes % 10.2; Neutrophils % 76.8; Platelet Count 171 10^3/uL (130-400); RBC 4.32 10^6/uL (4.36-5.78); RDW 12.3 % (11.8-14.1); RDW-SD 40.9 fL; WBC 10.98 10^3/uL (4.4-10.8)
[2020-04-28 18:53] LABS: Absolute Neutrophil Count 8.43 10^3/uL (1.2-6.7)
--- NOTE | 2020-04-28 18:59 | W.ORTHOCONSU ---
Date of service: 04/28/20 Time of Service: 17:59 History of Present Illness History of Present Illness Chief Complaint: Right Shoulder Pain Narrative: Anjel is a 74 year old resident of the [facility] who has found down by his bed this morning. Once he was helped off of the floor he had right shoulder pain that was noticed during the day and he was sent for an xray which showed a right shoulder fracture dislocation. He was seen in the ED after this was seen on the xray where I was consulted. History is very difficult to obtain and see does not speak very often and usually only 1 word. However, he reports pain about the right arm. He denies numbness or tingling. He denies issues with her shoulder prior to the fall. He denies any neck pain. Consults Consult date: 04/28/20 Requesting physician: Ashwin Esparza Consult Reason Right shoulder fracture dislocation Assessment and Plan Assessment and plan (1) Fracture dislocation of right shoulder joint: Status: Acute Assessment and plan: Anjel is a 74-year-old with multiple medical comorbidities who was found down this morning. He has a right shoulder fracture dislocation. It is grossly unstable. Unfortunately, during the procedure to reduce the shoulder, which was under sedated, I was able to get what seemed to be a reduction release perching him to the glenoid with immediate fall back into the anterior space. He was somewhat spastic which did make it hard. After this failed, the next that would be reduction with more sedation on board. Given the volume in the ED and the patient's preference, he would prefer this to be done in the operating room where he will be less alert and have more successful reduction. However, he had lunch at 1230 and therefore there is a delay in getting to the operating room., Given this scenario, recommended that we do this in the morning. However, the [facility] unable to guarantee any transportation back to the hospital in the morning. Given the situation, I feel is imperative that we keep him in the hospital for pain control, observation, and urgent shoulder reduction first thing in the morning. I will be in clinic but have asked my partner, Dr. Carcamo, to assist me in his care. He will go back to the [facility] after reduction. While in the operating room, if necessary, the greater tuberosity may be fixed to encourage reduction. I reviewed all this with Anjel. While the conversation was limited, he did nod in agreement and wanted to be asleep for the next step. He is a DNR/DNI. I obtain labs with his history of chronic kidney disease as well as diabetes. He will be n.p.o. after midnight. Qualifiers: Encounter type: initial encounter Fracture type: closed Qualified Code(s): S42.91XA - Fracture of right shoulder girdle, part unspecified, initial encounter for closed fracture Review of Systems Unobtainable due to mental condition [facility] Medical History (Updated 04/28/20 @ 22:19 by Avery Angeles MD) Antisocial personality disorder (Acute) Bipolar disorder (Chronic) Chronic kidney disease (Acute) Depression (Chronic) Diabetes mellitus (Chronic) Hypertension (Chronic) Parkinson disease (Chronic) Thrombocytopenia (Chronic) Venous insufficiency (Acute) Social History Smoking/Tobacco Use Status: Former Tobacco Use Alcohol Intake: former Substance use type: does not use Additional Social history: pt at the [facility] Exam Const General: comfortable and no acute distress Nutritional Appearance: average body habitus Orientation: alert and awake Limitations: other limitations (Very limited speech, usually in 1 words and after some delay.) Resp Effort & Inspection: normal respiratory effort Auscultation: clear to auscultation bilaterally Cardio Rate: regular rate Rhythm: regular rhythm Extrem Other: Laying supine. There is some slight prominence and fullness of the right shoulder anteriorly. There is an old scar which does not appear surgical. The arm is in abducted position and internally rotated. Any attempted forward flexion or external rotation of the right arm causes pain, identified by grimace. He is able to demonstrate active thumb extension, finger extension, finger flexion, thumb flexion, wrist extension, wrist flexion. Sensation exam is difficult but he appears to endorse full sensation over the axillary, median, radial, ulnar nerve. Palpable radial pulse. No overlying skin changes, blanching, erythema. Results Last Vital Signs Temp 37.1 C 04/28/20 14:22 Pulse 90 04/28/20 18:31 Resp 26 H 04/28/20 18:31 BP 163/81 H 04/28/20 18:31 Pulse Ox 93 L 04/28/20 18:31 Labs Result diagrams: 04/28/20 18:44 04/28/20 18:44 Labs: Laboratory Results - last 24 hr 04/28/20 18:44 WBC 10.98 H RBC 4.32 L Hgb 13.5 Hct 39.1 L MCV 90.5 MCH 31.3 MCHC 34.5 RDW 12.3 Plt Count 171 MPV 10.8 Immature Gran % 0.3 Neutrophils % 76.8 Lymphocytes % 12.5 Monocytes % 10.2 Eosinophils % 0.1 Basophils % 0.1 Absolute Neutrophils 8.43 H Absolute Lymphocytes 1.37 Absolute Monocytes 1.12 H Absolute Eosinophils 0.01 Absolute Basophils 0.01 Imaging Imaging Studies: X-ray of the right shoulder demonstrates a fracture dislocation with a large greater tuberosity component and an anterior dislocation of the remainder of the humerus. Procedures Orthopedic Joint Reduction Right shoulder: Time out performed: Yes Side: right Joint reduction location: shoulder Analgesia: procedural sedation Shoulder technique used (if applicable): traction/counter-traction and external rotation Technique used: direct manipulation Post-reduction neuro exam: no change Post-reduction vascular exam: no change Post-reduction x-ray obtained: Yes Post-reduction x-ray results: not reduced Splint applied: No Patient tolerated procedure: no complications
[2020-04-28 19:04] LABS: INR 1.1 (0.9-1.1); PTT Activated 24.8 sec (21.0-31.4); Prothrombin Time 10.8 sec (9.3-11.0)
[2020-04-28 19:05] LABS: ALT 46 U/L (16-63); AST 30 U/L (15-37); Albumin 3.2 g/dL (3.4-5.0); Alkaline Phosphatase 95 U/L (46-116); BUN 21 mg/dL (7-18); Bilirubin, Total 0.5 mg/dL (0.2-1.0); CREATININE 0.95 mg/dL (0.70-1.30); Calcium 8.7 mg/dL (8.5-10.1); Chloride 102 mmol/L (98-107); Glucose 303 mg/dL (74-106); Potassium 3.7 mmol/L (3.5-5.1); Sodium 138 mmol/L (136-145); Total Protein 7.5 g/dL (6.4-8.2)
[2020-04-28] MEDS: Glycopyrrolate 1 MG TAB 0.5 MG PO ×2 (20:25→20:54)
[2020-04-28] MEDS: Venlafaxine 37.5 MG CAPCR 75 MG PO (20:51)
[2020-04-28] MEDS: Acetaminophen 500 MG TAB PO (20:51)
[2020-04-28] MEDS: Finasteride 5 MG TAB PO (20:52)
[2020-04-28] MEDS: Simvastatin 20 MG TAB PO (20:52)
[2020-04-28] MEDS: Insulin Glargine 300 UNITS/3 ML PEN 20 UNITS SC (21:21)
[2020-04-28] MEDS: Normal Saline 1,000 ML 50 ML IV (22:20)
[2020-04-28 22:51] LABS: Hemoglobin A1C 7.1 % (3.8-5.6)
[2020-04-29] VITALS (14 sets, daily range): BP systolic 151–189; BP diastolic 75–92; PULSE 77–112; RESP 18–31; TEMP 36.1–37.5; O2SAT 88–100
--- NOTE | 2020-04-29 06:26 | W.PM.DS.N ---
Date of service: 04/29/20 Time of Service: 12:55 DS: Diagnosis Discharge Diagnosis (1) Fracture dislocation of right shoulder joint: Status: Acute Discharge Plan Disposition Patient Disposition: [facility] Condition: Fair Discharge Details Chief Complaint: Orthopedic Clinical Impression: Dislocated shoulder Reason For Visit: RIGHT SHOULDER FRACTURE DISLOCATION Admit Date/Time: 04/28/20 18:48 Admit Provider: Avery Angeles Attending Provider: Avery Angeles Primary Care Provider: Jennifer Cool ED Provider: Sameera Vang [facility] Course Hospital Course: Anjel was seen in the ED after a fall at [facility], 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 He had initial x-rays with a fracture dislocation of the right shoulder. Initial attempts at reduction in the ED were unsuccessful and therefore he was recommended to proceed to the OR once he was adequately NPO. However, [facility] was unable to transport him back and forth so he was admitted overnight for obversation for pain control and closed reduction vs ORIF in the morning. He was taken to the operating room on HD#2. Home Meds and New Rx's Prescriptions: New acetaminophen 500 mg tablet 1,000 mg PO Q8H PRN (Reason: pain) Qty: 90 RF: 3 naproxen 375 mg tablet 375 mg PO BID PRNQty: 60 RF: 0 Continued glycopyrrolate 1 mg tablet 0.5 mg PO BID RF: 0 venlafaxine 75 mg capsule,extended release 24hr 75 mg PO DAILY RF: 0 venlafaxine 150 mg capsule,extended release 24hr 150 mg PO DAILY RF: 0 amlodipine 10 mg tablet 10 mg PO DAILY RF: 0 simvastatin 20 mg tablet 20 mg PO DAILY RF: 0 aspirin 81 mg Tablet,Chewable 81 mg PO DAILY RF: 0 hydrochlorothiazide 25 mg tablet 12.5 mg PO DAILY RF: 0 ergocalciferol (vitamin D2) [Vitamin D2] 1,250 mcg (50,000 unit) Capsule 50,000 unit PO DAILY RF: 0 lisinopril 40 mg tablet 40 mg PO DAILY RF: 0 docusate sodium 100 mg Tablet 200 mg PO DAILY RF: 0 finasteride 5 mg tablet 5 mg PO DAILY RF: 0 Basaglar MartinaikPen U-100 Insulin 100 unit/mL (3 mL) insulin pen 20 unit SUBCUT HS RF: 0 Basaglar KwikPen U-100 Insulin 100 unit/mL (3 mL) insulin pen 40 unit SUBCUT DAILY RF: 0 insulin aspart U-100 [Novolog Flexpen U-100 Insulin] 100 unit/mL (3 mL) Insulin Pen See Protocol unit SUBCUT QAC RF: 0 Discontinued acetaminophen [Tylenol Extra Strength] 500 mg Tablet 500 mg PO BID RF: 0 Discharge Instructions Additional Instructions: Activity: You should stay in the sling at all times. It may be removed for hygiene but the arm should stay on your belly or chest, in front of you. Do NOT attempt to use it for reaching or pushing off. PT may be initiated to work on gait stability but no PT for the right arm. Medications: - You should take Acetaminophen and naproxen for pain control. - Keep ice applied to the shoulder, 20-30 minutes on and then 20-30 minutes off. Follow-up: 2 weeks Referrals: Navdeep Carcamo MD [ [facility]FF [facility]YS[facility]] - Activity:: NWB RUE Equipment/Supplies:: Sling Diet:: Carb Counting Discharge Orders Discharge Orders: Discharge Order (Routine); Ordered 04/29/20 Ordered By: Avery Angeles DS: Summary Status at Discharge Functional status at discharge: independent ambulation Overall status at discharge: patient is not back to baseline Mental Status: mental status grossly normal Speech and Movement: speech and movement normal Mood: congruent mood Affect: normal affect Exam Psych Mental Status: mental status grossly normal Speech and Movement: speech and movement normal Mood: congruent mood Affect: normal affect DS: Data Vitals/I&O Vitals and I&O: Vital Signs Temperature 36.7 C 04/29/20 04:37 Temperature Source Tympanic 04/29/20 04:37 Pulse 82 04/29/20 04:37 Pulse Rhythm Regular 04/29/20 04:28 Pulse 94 H 04/28/20 19:20 Respiratory Rate 18 04/29/20 04:37 Respiratory Effort 04/29/20 04:28 Respiratory Depth Normal 04/28/20 20:19 Respiratory Pattern Normal 04/28/20 20:19 Blood Pressure 172/80 H 04/29/20 04:37 Blood Pressure Mean 104 04/28/20 19:16 Blood Pressure Position Supine 04/28/20 14:22 Pulse Oximetry 95 04/29/20 04:37 Respiratory End-tidal CO2 30 04/28/20 19:20 Oxygen Delivery Method Room Air 04/29/20 04:37 Oxygen Flow Rate 0 04/29/20 04:37 Pain Level 0 04/28/20 23:28 Comment 04/28/20 20:19 Intake & Output 04/28/20 04/28/20 04/29/20 11:59 23:59 11:59 Weight 87.09 kg Data Completed and Pending Labs on day of discharge: Labs from last 24 hours 04/28/20 04/28/20 04/28/20 18:44 18:44 18:44 WBC 10.98 H RBC 4.32 L Hgb 13.5 Hct 39.1 L MCV 90.5 MCH 31.3 MCHC 34.5 RDW 12.3 Plt Count 171 MPV 10.8 Immature Gran % 0.3 Neutrophils % 76.8 Lymphocytes % 12.5 Monocytes % 10.2 Eosinophils % 0.1 Basophils % 0.1 Absolute Neutrophils 8.43 H Absolute Lymphocytes 1.37 Absolute Monocytes 1.12 H Absolute Eosinophils 0.01 Absolute Basophils 0.01 PT 10.8 INR 1.1 APTT 24.8 Sodium Potassium Chloride Carbon Dioxide Anion Gap BUN Creatinine Estimated GFR/1.73 m2 Glucose Hemoglobin A1c 7.1 H Calcium Total Bilirubin AST ALT Alkaline Phosphatase Total Protein Albumin COVID-19 PCR Nasopharyn COVID-19 PCR Ref Test Perform Site 04/28/20 04/28/20 18:44 15:00 WBC RBC Hgb Hct MCV MCH MCHC RDW Plt Count MPV Immature Gran % Neutrophils % Lymphocytes % Monocytes % Eosinophils % Basophils % Absolute Neutrophils Absolute Lymphocytes Absolute Monocytes Absolute Eosinophils Absolute Basophils PT INR APTT Sodium 138 Potassium 3.7 Chloride 102 Carbon Dioxide 26.0 Anion Gap 10.0 BUN 21 H Creatinine 0.95 Estimated GFR/1.73 m2 >= 60.00 Glucose 303 H Hemoglobin A1c Calcium 8.7 Total Bilirubin 0.5 AST 30 ALT 46 Alkaline Phosphatase 95 Total Protein 7.5 Albumin 3.2 L COVID-19 PCR Pending Nasopharyn COVID-19 PCR Pending Ref Test Perform Site Pending 04/28/20 19:50 Nose MRSA Screen - Pending Preliminary micro results at discharge 04/28/20 19:50 MRSA Screen - Pending Nose [facility] Medical History Antisocial personality disorder (Acute) Bipolar disorder (Chronic) Chronic kidney disease (Acute) Depression (Chronic) Diabetes mellitus (Chronic) Hypertension (Chronic) Parkinson disease (Chronic) Thrombocytopenia (Chronic) Venous insufficiency (Acute) Social History Smoking/Tobacco Use Status: Former Tobacco Use Alcohol Intake: former Substance use type: does not use Additional [facility] history[facility]
--- NOTE | 2020-04-29 07:16 | PGE_ITS ---
Date of Service Date of service: 04/29/20 Time of Service: 07:16 Assessment and Plan Assessment and plan (1) Fracture dislocation of right shoulder joint: Status: Acute Assessment and plan: Anjel is a 74-year-old who suffered a right shoulder fracture dislocation. He does have some chronic medical and psychiatric conditions which limits some of the assessment and exam. However, he is his own decision maker and although he is DNR/DNI I do think proceeding to the operating room to reduce this shoulder and stabilize it will be necessary to keep him comfortable. The consent was reviewed with Anjel for closed versus open reduction and possible internal rotation of a right shoulder fracture dislocation. I reviewed the risk to include bleeding, infection, pain, stiffnes s, instability, malunion, nonunion, need for repeat procedures, blood clot, damage to nerves and vessels. Despite these risk, he elects to proceed. He is a DNR/DNI and he makes it clear although that is rescinded for the time of surgery itself only. He acknowledges the surgery and does want to feel better and wants to not hurt. Communication is still limited and he responds mostly with nods and single word answers but he was able to articulate desire to proceed as well as state that he was wet and needed nursing. I also explained the Dr. Carcamo would be performing the surgery and helping with his care since I am in the office all day today. He is n.p.o. Antibiotics will be held and only needed if surgery is converted to open. Likely discharge back to the [facility] today. Qualifiers: Encounter type: initial encounter Fracture type: closed Qualified Code(s): S42.91XA - Fracture of right shoulder girdle, part unspecified, initial encounter for closed fracture Subjective Subjective Interval history since last seen: Anjel reports controlled pain overnight. He does have any pain if he tries to move his right arm. The pain is mostly anterior. No other new symptoms. Exam Narrative Exam Narrative: Resting supine in the hospital bed. His right arm is adducted. He attempts to move it and has notable grimace and pain. He is alert and awake. He is more conversant this morning and is able to acknowledge the injury and also consent for surgery. Palpable radial pulse. Endorses sensation of the axilla, median, radial, ulnar nerve. Objective Objective Clinical Data: Abnormal lab results 0704/28/20 04/28/20 Range/Units 18:44 18:44 18:44 WBC 10.98 H (4.4-10.8) 10^3/uL RBC 4.32 L (4.36-5.78) 10^6/uL Hct 39.1 L (40.0-50.0) % Absolute Neutrophils 8.43 H (1.2-6.7) 10^3/uL Absolute Monocytes 1.12 H (0.1-0.8) 10^3/uL BUN 21 H (7-18) mg/dL Glucose 303 H (74-106) mg/dL Hemoglobin A1c 7.1 H (3.8-5.6) % Albumin 3.2 L (3.4-5.0) g/dL Vital Signs Temperature 36.7 C 04/29/20 04:37 Temperature Source Tympanic 04/29/20 04:37 Pulse 82 04/29/20 04:37 Pulse Rhythm Regular 04/29/20 04:28 Pulse 94 H 04/28/20 19:20 Respiratory Rate 18 04/29/20 04:37 Respiratory Effort 04/29/20 04:28 Respiratory Depth Normal 04/28/20 20:19 Respiratory Pattern Normal 04/28/20 20:19 Blood Pressure 172/80 H 04/29/20 04:37 Blood Pressure Mean 104 04/28/20 19:16 Blood Pressure Position Supine 04/28/20 14:22 Pulse Oximetry 95 04/29/20 04:37 Respiratory End-tidal CO2 30 04/28/20 19:20 Oxygen Delivery Method Room Air 04/29/20 04:37 Oxygen Flow Rate 0 04/29/20 04:37 Pain Level 0 04/28/20 23:28 Comment 04/28/20 20:19 Intake & Output 04/28/20 04/28/20 04/29/20 11:59 23:59 11:59 Weight 87.09 kg Laboratory Results WBC 10.98 10^3/uL (4.4-10.8) H 04/28/20 18:44 RBC 4.32 10^6/uL (4.36-5.78) L 04/28/20 18:44 Hgb 13.5 g/dL (13.5-17.5) 04/28/20 18:44 Hct 39.1 % (40.0-50.0) L 04/28/20 18:44 MCV 90.5 fL (80-95) 04/28/20 18:44 MCH 31.3 pg (27.0-33.0) 04/28/20 18:44 MCHC 34.5 % (32.0-36.0) 04/28/20 18:44 RDW 12.3 % (11.8-14.1) 04/28/20 18:44 Plt Count 171 10^3/uL (130-400) 04/28/20 18:44 MPV 10.8 fL (8.0-11.0) 04/28/20 18:44 Immature Gran % 0.3 04/28/20 18:44 Neutrophils % 76.8 04/28/20 18:44 Lymphocytes % 12.5 04/28/20 18:44 Monocytes % 10.2 04/28/20 18:44 Eosinophils % 0.1 04/28/20 18:44 Basophils % 0.1 04/28/20 18:44 Absolute Neutrophils 8.43 10^3/uL (1.2-6.7) H 04/28/20 18:44 Absolute Lymphocytes 1.37 10^3/uL (1.2-3.4) 04/28/20 18:44 Absolute Monocytes 1.12 10^3/uL (0.1-0.8) H 04/28/20 18:44 Absolute Eosinophils 0.01 10^3/uL (0.0-0.7) 04/28/20 18:44 Absolute Basophils 0.01 10^3/uL (0.0-0.2) 04/28/20 18:44 PT 10.8 sec (9.3-11.0) 04/28/20 18:44 INR 1.1 (0.9-1.1) 04/28/20 18:44 APTT 24.8 sec (21.0-31.4) 04/28/20 18:44 Sodium 138 mmol/L (136-145) 04/28/20 18:44 Potassium 3.7 mmol/L (3.5-5.1) 04/28/20 18:44 Chloride 102 mmol/L (98-107) 04/28/20 18:44 Carbon Dioxide 26.0 mmol/L (21.0-32.0) 04/28/20 18:44 Anion Gap 10.0 mmol/L (3-11) 04/28/20 18:44 BUN 21 mg/dL (7-18) H 04/28/20 18:44 Creatinine 0.95 mg/dL (0.70-1.30) 04/28/20 18:44 Estimated GFR/1.73 m2 >= 60.00 (mL/min/1.73m2) 04/28/20 18:44 Glucose 303 mg/dL (74-106) H 04/28/20 18:44 Hemoglobin A1c 7.1 % (3.8-5.6) H 04/28/20 18:44 Calcium 8.7 mg/dL (8.5-10.1) 04/28/20 18:44 Total Bilirubin 0.5 mg/dL (0.2-1.0) 04/28/20 18:44 AST 30 U/L (15-37) 04/28/20 18:44 ALT 46 U/L (16-63) 04/28/20 18:44 Alkaline Phosphatase 95 U/L (46-116) 04/28/20 18:44 Total Protein 7.5 g/dL (6.4-8.2) 04/28/20 18:44 Albumin 3.2 g/dL (3.4-5.0) L 04/28/20 18:44
[2020-04-29] MEDS: amLODIPine 10 MG TAB PO (07:43)
[2020-04-29] MEDS: traMADol 50 MG TAB PO ×2 (07:43→13:10)
[2020-04-29] MEDS: Lisinopril 20 MG TAB 40 MG PO (07:43)
--- NOTE | 2020-04-29 09:30 | DI.RAD_ITS ---
EXAM: XR SHOULDER RT 1V CLINICAL HISTORY: fx dislocation rt shoulder. TECHNIQUE: 2D and realtime digital imaging was performed. COMPARISON: CR,XR XR SHOULDER RT COMP POST REDUC from 04/28/2020 FINDINGS: Fluoroscopy was provided during of a previously noted anterior shoulder dislocation. The humeral he ad now appears anatomically positioned with respect to the glenoid on this single view. The fracture fragment is now located adjacent to the humeral head. Please see procedure note for details. Fluoro time: 23.3 sec RADIATION DOSE DELIVERED:
--- NOTE | 2020-04-29 10:00 | W.PM.OP ---
Date of service: 04/29/20 Time of Service: 10:00 Operative Note Operative Note DATE OF PROCEDURE: 04/29/20 PRE-OP DIAGNOSIS: Fracture dislocation right shoulder PROCEDURE: Close reduction of fracture dislocation right shoulder SURGEON: Navdeep Carcamo ANESTHESIA: MIRELA PATHOLOGY: none sent COMPLICATIONS: None Patient was transported to: PACU Patient's condition: stable Indications: There is a 74-year-old white male resident of the [facility] with multiple multiple medical comorbidities. He was found on the floor yesterday from an unwitnessed fall. Complaining of right shoulder pain was brought to the emergency room where x-rays showed anterior dislocation of the humerus with a fracture of the greater tuberosity. Dr. Angeles was consulted in attempted close reduction in the emergency room under sedation. After multiple unsuccessful attempts, he felt that close reduction under general anesthesia was indicated. Because the patient had recently eaten he was not a candidate for general anesthesia at that time. Is decided to admit him and perform a closed reduction under general anesthesia on 04/29/2020. Because of prior commitment, Dr. Angeles asked me to do the close reduction. I confirmed with the patient preop that he had no objections to me doing the procedure. Informed the patient that there was a small possibility that an open reduction would be performed if I was unable to get a good close reduction. The risk and complication of procedure explained to the patient preop. Procedure Description: Patient taken the operating room on 04/29/2020 he was transferred from his hospital bed to the OR table. General endotracheal anesthesia was then performed. He had muscle paralysis with succinylcholine. I then performed a closed manipulative reduction. Despite muscle paralysis reduction was difficult. I used multiple different techniques until I finally was able to unlock the humeral head from the glenoid well approximated to the humeral head and shaft. Sling was applied. His general anesthesia was reversed without complications. He was discharged to recovery room in good condition.
--- NOTE | 2020-04-29 10:09 | INITIAL_ITS ---
- If Service Date Differs Date of service: 04/29/20 Time of Service: 10:21 Care Management Initial Assess REASON FOR HOSPITALIZATION:: Right Shoulder Fracture Dislocation PAST MEDICAL HISTORY/PAST SURGICAL HISTORY:: Antisocial personality disorder, bipolar disorder, CKD, Depression, DM, hypertension, parkinson disease, thrombocytopenia, venous insufficency PREVIOUS FUNCTIONAL STATUS/SOCIAL/FAMILY SUPPORTS:: Anjel is a 74 year old resident of the [facility] who was found down by his bed. His sister Shannon resides in [place], [place]. CURRENT FUNCTIONAL STATUS:: Anjel is in recovery, surgery was outpatient level day surgery. Due to limitations of his sending facility, Dr. Angeles reports having to admit to observation to complete surgery. Has patient been provided with info about the portal/API?: Yes Did the patient sign up for the portal?: No CODE STATUS:: DNR/DNI INSURANCE COVERAGE / FINANCIAL ISSUES:: Medicaid. Medicare CURRENT HOME/COMMUNITY SERVICES/EQUIPMENT:: [employer] on file. PRIMARY CARE PHYSICIAN:: Jennifer Cool POTENTIAL DISCHARGE NEEDS:: Transportation to return to [facility]. PATIENT/FAMILY EDUCATION NEEDS:: Review discharge instructions, discuss [employer]. ANTICIPATED BARRIERS TO DISCHARGE:: None identified. TRANSPORTATION:: Via [facility]. PLAN:: Anjel will return to the [facility] when ready per MD. He will transport via [facility].
[2020-04-29] MEDS: Insulin Aspart 300 UNITS/3 ML PEN SC (12:09)
[2020-04-29] MEDS: Insulin Glargine 300 UNITS/3 ML PEN 20 UNITS SC (12:18)
[2020-04-29] MEDS: Venlafaxine 150 MG CAPCR PO (12:18)
[2020-04-29] MEDS: Acetaminophen 500 MG TAB PO (13:09)
[2020-04-29 14:44] LABS: COVID-19 RT-PCR UVMMC Result Negative (Negative)
== END 2020-04-29 13:50 | disposition designated cancer center or children's hospital (05) ==
LOC: ER 16:26 → MS 19:42
PROVIDERS: Orthopaedic Surgery; Admitting Provider Student in an Organized Health Care Education/Training Program; Emergency Provider Physician Assistant; PCP Family Medicine; Visit Provider Student in an Organized Health Care Education/Training Program
PROC: 0RSJXZZ Reposition Right Shoulder Joint, External Approach (ICD-10-PCS; CPT 23665; principal; 2020-04-29 09:00)
DX: S42.291A Other displaced fracture of upper end of right humerus, initial encounter for closed fracture (principal); W19.XXXA Unspecified fall, initial encounter; Y92.122 Bedroom in nursing home as the place of occurrence of the external cause; Z03.818 Encounter for observation for suspected exposure to other biological agents ruled out; R41.82 Altered mental status, unspecified; I10 Essential (primary) hypertension; E11.9 Type 2 diabetes mellitus without complications
CPT/HCPCS: 23665; 36415; 36416; 73030; 80053; 82962; 87081; 96374; 96375; 99219; 99233; 99253; 99285; NC; U0003; 70450; 73020; 83036; 85025; 85610; 85730; G0378; J2001; J2060; J2405; J2704; J3010; L3650

== ENCOUNTER 2020-05-12 11:10 | Outpatient (CLI) | payer MEDICARE, MEDICAID, SELFPAY ==
--- NOTE | 2020-05-12 10:30 | DI.RAD_ITS ---
EXAM: XR SHOULDER RT 1V CLINICAL HISTORY: f/u TECHNIQUE: COMPARISON: CR,XR XR SHOULDER RT COMP POST REDUC from 04/28/2020 XR SHOULDER RT 1V from 04/29/2020 FINDINGS: Single AP view was obtained. Previous described proximal humeral fracture again noted, no gross inte rval change in alignment in comparison with intraoperative films of April 29. No evidence of a chandler ohumeral dislocation. IMPRESSION:
== END 2020-05-12 11:30 ==
PROVIDERS: PCP Family Medicine; Referring Provider Family Medicine; Visit Provider Orthopaedic Surgery
DX: S42.201D Unspecified fracture of upper end of right humerus, subsequent encounter for fracture with routine healing (principal); S42.91XD Fracture of right shoulder girdle, part unspecified, subsequent encounter for fracture with routine healing; X58.XXXD Exposure to other specified factors, subsequent encounter
CPT/HCPCS: 73020

== ENCOUNTER 2020-05-14 16:12 | Outpatient (REF) | payer MEDICARE, MEDICAID, SELFPAY ==
[2020-05-14 17:11] LABS: Anion Gap 10.4 mmol/L (3-11); BUN 20 mg/dL (7-18); CO2 24.6 mmol/L (21.0-32.0); CREATININE 0.83 mg/dL (0.70-1.30); Calcium 8.7 mg/dL (8.5-10.1); Chloride 101 mmol/L (98-107); Glucose 291 mg/dL (74-106); Potassium 4.3 mmol/L (3.5-5.1); Sodium 136 mmol/L (136-145)
== END 2020-05-14 16:32 ==
LOC: NCHCN 16:12
PROVIDERS: PCP Family Medicine; Visit Provider Family Medicine
DX: E11.9 Type 2 diabetes mellitus without complications (principal); Z79.899 Other long term (current) drug therapy
CPT/HCPCS: 80048

== ENCOUNTER 2020-06-23 10:56 | Outpatient (CLI) | payer MEDICARE, MEDICAID, SELFPAY ==
--- NOTE | 2020-06-23 10:30 | DI.RAD_ITS ---
EXAM: XR SHOULDER RT COMPLETE 2+V CLINICAL HISTORY: follow up fracture. TECHNIQUE: 2D digital imaging was performed. COMPARISON: CR XR SHOULDER RT COMPLETE 2+V from 04/28/2020 CR,XR XR SHOULDER RT COMP POST REDUC from 04/28/2020 XR SHOULDER RT 1V from 04/29/2020 CR XR SHOULDER RT 1V from 05/12/2020 FINDINGS: BONES: There has been no change in alignment of the proximal humeral fracture compared to the prior e xamination. The osseous fragment inferior to the acromioclavicular joint is stable. No new fracture or dislocation is present. No bony destructive lesion is seen. JOINTS: No dislocation present. SOFT TISSUE: Normal. IMPRESSION: Stable right humeral fracture. DATA REPOSITORY: RADIATION DOSE DELIVERED:
== END 2020-06-23 11:16 ==
PROVIDERS: PCP Family Medicine; Referring Provider Family Medicine; Visit Provider Orthopaedic Surgery
DX: S42.291A Other displaced fracture of upper end of right humerus, initial encounter for closed fracture (principal); S42.91XD Fracture of right shoulder girdle, part unspecified, subsequent encounter for fracture with routine healing; X58.XXXD Exposure to other specified factors, subsequent encounter; E11.9 Type 2 diabetes mellitus without complications; I10 Essential (primary) hypertension
CPT/HCPCS: 73030

== ENCOUNTER 2020-07-27 12:49 | Outpatient (REF) | payer MEDICARE, MEDICAID, SELFPAY | END 2020-07-27 13:09 | LOC: NCHCN 12:49 | PROVIDERS: PCP Family Medicine; Visit Provider Family Medicine | DX: E11.9 Type 2 diabetes mellitus without complications (principal) | CPT/HCPCS: 83036 ==

== ENCOUNTER 2020-07-28 13:22 | Outpatient (REF) | payer MEDICARE, MEDICAID, SELFPAY ==
[2020-07-28 14:03] LABS: Hemoglobin A1C 8.9 % (<5.7)
== END 2020-07-28 13:42 ==
LOC: NCHCN 13:22
PROVIDERS: PCP Family Medicine; Visit Provider Family Medicine
DX: E11.9 Type 2 diabetes mellitus without complications (principal)
CPT/HCPCS: 83036

== ENCOUNTER 2020-09-08 10:34 | Outpatient (CLI) | payer MEDICARE, MEDICAID, SELFPAY ==
--- NOTE | 2020-09-08 10:15 | DI.RAD_ITS ---
EXAM: XR SHOULDER RT COMPLETE 2+V CLINICAL HISTORY: f/u TECHNIQUE: COMPARISON: CR XR SHOULDER RT COMPLETE 2+V from 04/28/2020 CR,XR XR SHOULDER RT COMP POST REDUC from 04/28/2020 CR,XR XR SHOULDER RT COMP POST REDUC from 04/28/2020 CR XR SHOULDER RT COMPLETE 2+V from 06/23/2020 FINDINGS: Two views were obtained and show healing proximal humeral fracture, no gross interval change in align ment in comparison with prior examination of June 23. A free fracture fragment appears to be present posteriorly. No gross interval change in appearance comparison with examination of April 28 allowing for differences in projection. If there is further clinical uncertainty regarding alignmen t of the bony fragments, additional evaluation with CT may be considered. IMPRESSION: RADIATION DOSE DELIVERED: Total DLP
== END 2020-09-08 10:54 ==
PROVIDERS: PCP Family Medicine; Referring Provider Family Medicine; Visit Provider Orthopaedic Surgery
DX: S42.291A Other displaced fracture of upper end of right humerus, initial encounter for closed fracture (principal); S42.91XD Fracture of right shoulder girdle, part unspecified, subsequent encounter for fracture with routine healing; X58.XXXD Exposure to other specified factors, subsequent encounter; E11.22 Type 2 diabetes mellitus with diabetic chronic kidney disease; I12.9 Hypertensive chronic kidney disease with stage 1 through stage 4 chronic kidney disease, or unspecified chronic kidney disease
CPT/HCPCS: 99213; 73030

== ENCOUNTER 2020-10-27 19:58 | Outpatient (REF) | payer MEDICARE, MEDICAID, SELFPAY ==
[2020-10-27 15:40] LABS: Abs Immature Grans 0.03 10^3/uL (0.0-0.06); Absolute Basophil Count 0.05 10^3/uL (0.0-0.2); Absolute Lymphocyte Count 1.21 10^3/uL (1.2-3.4); Absolute Monocyte Count 0.87 10^3/uL (0.1-0.8); Absolute Neutrophil Count 5.96 10^3/uL (1.2-6.7); Basophils % 0.6; Eosinophils % 1.2; HCT 46.7 % (40.0-50.0); HGB 15.6 g/dL (13.5-17.5); Immature Grans % 0.4; Lymphocytes % 14.7; MCH 30.9 pg (27.0-33.0); MCHC 33.4 % (32.0-36.0); MCV 92.5 fL (80-95); MPV 12.4 fL (8.0-11.0); Monocytes % 10.6; Neutrophils % 72.5; Nucleated RBC 0 %; Platelet Count 142 10^3/uL (130-400); RBC 5.05 10^6/uL (4.36-5.78); RDW 12.7 % (11.8-14.1); RDW-SD 42.9 fL; WBC 8.22 10^3/uL (4.4-10.8)
[2020-10-27 15:57] LABS: Anion Gap 10.9 mmol/L (3-11); BUN 20 mg/dL (7-18); CO2 24.1 mmol/L (21.0-32.0); CREATININE 1.05 mg/dL (0.70-1.30); Calcium 9.1 mg/dL (8.5-10.1); Chloride 102 mmol/L (98-107); Glucose 277 mg/dL (74-106); Potassium 4.5 mmol/L (3.5-5.1); Sodium 137 mmol/L (136-145)
[2020-10-27 16:02] LABS: Hemoglobin A1C 8.4 % (<5.7)
== END 2020-10-27 20:18 ==
LOC: NCHCN 19:58
PROVIDERS: PCP Family Medicine; Visit Provider Family Medicine
DX: E11.649 Type 2 diabetes mellitus with hypoglycemia without coma (principal); G20 Parkinson's disease; F33.9 Major depressive disorder, recurrent, unspecified; I87.2 Venous insufficiency (chronic) (peripheral); R22.43 Localized swelling, mass and lump, lower limb, bilateral
CPT/HCPCS: 80048; 83036; 85025

== ENCOUNTER 2021-01-25 18:48 | Outpatient (REF) | payer MEDICARE, MEDICAID, SELFPAY ==
[2021-01-25 18:39] LABS: Anion Gap 7.8 mmol/L (3-11); BUN 22 mg/dL (7-18); CO2 27.2 mmol/L (21.0-32.0); CREATININE 0.9 mg/dL (0.70-1.30); Calcium 9.3 mg/dL (8.5-10.1); Chloride 102 mmol/L (98-107); Glucose 233 mg/dL (74-106); Potassium 4.2 mmol/L (3.5-5.1); Sodium 137 mmol/L (136-145)
[2021-01-25 18:44] LABS: Hemoglobin A1C 7.1 % (<5.7)
== END 2021-01-25 18:49 | disposition home or self-care (01) ==
LOC: LBN 18:48
PROVIDERS: PCP Family Medicine; Visit Provider Family Medicine
DX: E11.649 Type 2 diabetes mellitus with hypoglycemia without coma (principal); F31.81 Bipolar II disorder; I87.2 Venous insufficiency (chronic) (peripheral); G25.9 Extrapyramidal and movement disorder, unspecified; G20 Parkinson's disease
CPT/HCPCS: 80048; 83036

== ENCOUNTER 2021-02-24 15:05 | Outpatient (REF) | payer MEDICARE, MEDICAID, SELFPAY ==
[2021-02-24 15:47] LABS: Abs Immature Grans 0.02 10^3/uL (0.0-0.06); Absolute Basophil Count 0.04 10^3/uL (0.0-0.2); Absolute Eosinophil Count 0.21 10^3/uL (0.0-0.7); Absolute Lymphocyte Count 1.88 10^3/uL (1.2-3.4); Absolute Monocyte Count 0.89 10^3/uL (0.1-0.8); Absolute Neutrophil Count 5.08 10^3/uL (1.2-6.7); Basophils % 0.5; Eosinophils % 2.6; HCT 43.8 % (40.0-50.0); HGB 15.1 g/dL (13.5-17.5); Immature Grans % 0.2; Lymphocytes % 23.2; MCH 31.5 pg (27.0-33.0); MCHC 34.5 % (32.0-36.0); MCV 91.3 fL (80-95); MPV 11.5 fL (8.0-11.0); Neutrophils % 62.5; Nucleated RBC 0 %; Platelet Count 202 10^3/uL (130-400); RDW 12.6 % (11.8-14.1); RDW-SD 41.8 fL; WBC 8.12 10^3/uL (4.4-10.8)
[2021-02-24 17:56] LABS: ALT 52 U/L (16-63); AST 32 U/L (15-37); Albumin 3.8 g/dL (3.4-5.0); Alkaline Phosphatase 119 U/L (46-116); BUN 21 mg/dL (7-18); Bilirubin, Total 0.4 mg/dL (0.2-1.0); CREATININE 0.9 mg/dL (0.70-1.30); Calcium 9.1 mg/dL (8.5-10.1); Chloride 104 mmol/L (98-107); Folate > 20.0 ng/mL (8.6-20.0); Glucose 113 mg/dL (74-106); Magnesium 1.6 mg/dL (1.8-2.4); Potassium 4.1 mmol/L (3.5-5.1); Sodium 141 mmol/L (136-145); TSH (W/Ref FT4) 2.39 uIU/mL (0.36-3.74); Total Protein 8.1 g/dL (6.4-8.2); Vitamin B12 133 pg/mL (193-986)
[2021-02-24 18:03] LABS: C-Reactive Protein 0.48 mg/dL (0.0-0.3)
== END 2021-02-24 15:06 | disposition home or self-care (01) ==
LOC: LBN 15:05
PROVIDERS: PCP Family Medicine; Visit Provider Family Medicine
DX: E11.9 Type 2 diabetes mellitus without complications (principal); G20 Parkinson's disease; F31.9 Bipolar disorder, unspecified; I87.2 Venous insufficiency (chronic) (peripheral); Z79.899 Other long term (current) drug therapy
CPT/HCPCS: 80053; 81003; 82607; 82746; 83735; 84443; 85025; 86140

== ENCOUNTER 2021-02-25 16:52 | Outpatient (REF) | payer MEDICARE, MEDICAID, SELFPAY ==
[2021-02-25 17:50] LABS: Bilirubin Negative (Negative); Blood Negative (Negative); Clarity Sl Cloudy (Clear); Glucose Negative (Negative); Ketones Negative (Negative); Leukocyte Esterase Negative (Negative); Nitrite Negative (Negative); pH 5.5 (5-8)
[2021-02-25 18:01] LABS: Bacteria Many HPF (Negative); C & S Indicated? C&S Done As Ordered; Casts Negative LPF (Negative); Crystals Negative HPF (Negative); Epithelial Cells Few HPF (Negative); Mucus Trace (Negative); RBC 0-2 HPF (0-2)
== END 2021-02-25 16:53 | disposition home or self-care (01) ==
LOC: LBN 16:52
PROVIDERS: PCP Family Medicine; Visit Provider Family Medicine
DX: R30.0 Dysuria (principal); R82.998 Other abnormal findings in urine
CPT/HCPCS: 81003; 81015; 87086

== ENCOUNTER 2021-04-11 15:29 | Outpatient (REF) | payer MEDICARE, MEDICAID, SELFPAY ==
[2021-04-11 17:04] LABS: Abs Immature Grans 0.02 10^3/uL (0.0-0.06); Absolute Basophil Count 0.05 10^3/uL (0.0-0.2); Absolute Eosinophil Count 0.15 10^3/uL (0.0-0.7); Absolute Lymphocyte Count 1.72 10^3/uL (1.2-3.4); Absolute Monocyte Count 0.81 10^3/uL (0.1-0.8); Absolute Neutrophil Count 5.45 10^3/uL (1.2-6.7); Basophils % 0.6; Eosinophils % 1.8; HCT 44.5 % (40.0-50.0); HGB 14.8 g/dL (13.5-17.5); Immature Grans % 0.2; MCH 31.2 pg (27.0-33.0); MCHC 33.3 % (32.0-36.0); MCV 93.7 fL (80-95); MPV 11.2 fL (8.0-11.0); Monocytes % 9.9; Neutrophils % 66.5; Nucleated RBC 0 %; Platelet Count 205 10^3/uL (130-400); RBC 4.75 10^6/uL (4.36-5.78); RDW-SD 41.6 fL
[2021-04-11 17:27] LABS: Hemoglobin A1C 6.7 % (<5.7)
[2021-04-11 18:03] LABS: Anion Gap 11.7 mmol/L (3-11); BUN 20 mg/dL (7-18); CO2 26.3 mmol/L (21.0-32.0); CREATININE 1.1 mg/dL (0.70-1.30); Calcium 9.1 mg/dL (8.5-10.1); Chloride 102 mmol/L (98-107); Glucose 299 mg/dL (74-106); Magnesium 1.5 mg/dL (1.8-2.4); Potassium 4.4 mmol/L (3.5-5.1); Sodium 140 mmol/L (136-145); Vitamin B12 543 pg/mL (193-986)
== END 2021-04-11 15:30 | disposition home or self-care (01) ==
LOC: LBN 15:29
PROVIDERS: PCP Family Medicine; Visit Provider Nurse Practitioner Gerontology
DX: E11.649 Type 2 diabetes mellitus with hypoglycemia without coma (principal); F33.0 Major depressive disorder, recurrent, mild; G20 Parkinson's disease; I87.2 Venous insufficiency (chronic) (peripheral); G25.89 Other specified extrapyramidal and movement disorders; M62.81 Muscle weakness (generalized); Z79.899 Other long term (current) drug therapy
CPT/HCPCS: 80048; 82607; 83036; 83735; 85025

== ENCOUNTER 2021-05-11 18:41 | Outpatient (REF) | payer MEDICARE, MEDICAID, SELFPAY ==
[2021-05-11 13:57] LABS: Magnesium 1.6 mg/dL (1.8-2.4)
== END 2021-05-11 18:42 | disposition home or self-care (01) ==
LOC: LBN 18:41
PROVIDERS: PCP Family Medicine; Visit Provider Nurse Practitioner Gerontology
DX: I10 Essential (primary) hypertension (principal); M62.81 Muscle weakness (generalized)
CPT/HCPCS: 83735

== ENCOUNTER 2021-07-26 14:58 | Outpatient (REF) | payer MEDICARE, MEDICAID, SELFPAY ==
[2021-07-26 17:07] LABS: Hemoglobin A1C 6.6 % (<5.7)
== END 2021-07-26 14:59 | disposition home or self-care (01) ==
LOC: LBN 14:58
PROVIDERS: PCP Family Medicine; Visit Provider Nurse Practitioner Gerontology
DX: E11.649 Type 2 diabetes mellitus with hypoglycemia without coma (principal)
CPT/HCPCS: 83036

== ENCOUNTER 2021-09-06 18:29 | Outpatient (REF) | payer MEDICARE, MEDICAID, SELFPAY ==
[2021-09-06 22:43] LABS: Anion Gap 7.9 mmol/L (3-11); BUN 22 mg/dL (7-18); CO2 28.1 mmol/L (21.0-32.0); CREATININE 0.9 mg/dL (0.70-1.30); Calcium 9.2 mg/dL (8.5-10.1); Chloride 105 mmol/L (98-107); Glucose 125 mg/dL (74-106); Potassium 4.3 mmol/L (3.5-5.1); Sodium 141 mmol/L (136-145)
== END 2021-09-06 18:30 | disposition home or self-care (01) ==
LOC: LBN 18:29
PROVIDERS: PCP Family Medicine; Visit Provider Internal Medicine
DX: E11.65 Type 2 diabetes mellitus with hyperglycemia (principal); E11.649 Type 2 diabetes mellitus with hypoglycemia without coma
CPT/HCPCS: 80048

== ENCOUNTER 2022-03-21 14:59 | Outpatient (REF) | payer MEDICARE, MEDICAID, SELFPAY ==
[2022-03-21 15:33] LABS: Abs Immature Grans 0.03 10^3/uL (0.0-0.06); Absolute Basophil Count 0.04 10^3/uL (0.0-0.2); Absolute Lymphocyte Count 1.87 10^3/uL (1.2-3.4); Absolute Monocyte Count 1.03 10^3/uL (0.1-0.8); Absolute Neutrophil Count 4.69 10^3/uL (1.2-6.7); Basophils % 0.5; Eosinophils % 3.8; HCT 39.3 % (40.0-50.0); HGB 12.9 g/dL (13.5-17.5); Immature Grans % 0.4; Lymphocytes % 23.5; MCH 28.8 pg (27.0-33.0); MCHC 32.8 % (32.0-36.0); MCV 88 fL (80-95); MPV 11.4 fL (8.0-11.0); Monocytes % 12.9; Neutrophils % 58.9; Platelet Count 202 10^3/uL (130-400); RBC 4.48 10^6/uL (4.36-5.78); RDW 13.2 % (11.8-14.1); RDW-SD 42.3 fL; WBC 7.96 10^3/uL (4.4-10.8)
[2022-03-21 16:32] LABS: ALT 55 U/L (16-63); AST 52 U/L (15-37); Albumin 3.2 g/dL (3.4-5.0); Alkaline Phosphatase 124 U/L (46-116); Anion Gap 9.3 mmol/L (3-11); BUN 22 mg/dL (7-18); Bilirubin, Total 0.4 mg/dL (0.2-1.0); CO2 25.7 mmol/L (21.0-32.0); Chloride 100 mmol/L (98-107); Glucose 179 mg/dL (74-106); NT-proBNP 162 pg/mL (<300); Potassium 4.9 mmol/L (3.5-5.1); Sodium 135 mmol/L (136-145); TSH (W/Ref FT4) 3.35 uIU/mL (0.36-3.74); Total Protein 7.4 g/dL (6.4-8.2)
== END 2022-03-21 15:00 | disposition home or self-care (01) ==
LOC: LBN 14:59
PROVIDERS: PCP Family Medicine; Visit Provider Nurse Practitioner Gerontology
DX: Z00.00 Encounter for general adult medical examination without abnormal findings (principal); R63.5 Abnormal weight gain; G20 Parkinson's disease; E66.9 Obesity, unspecified
CPT/HCPCS: 80053; 83880; 84443; 85025

== ENCOUNTER 2022-04-25 15:22 | Outpatient (REF) | payer MEDICARE, MEDICAID, SELFPAY ==
[2022-04-25 13:50] LABS: Abs Immature Grans 0.02 10^3/uL (0.0-0.06); Absolute Basophil Count 0.05 10^3/uL (0.0-0.2); Absolute Eosinophil Count 0.32 10^3/uL (0.0-0.7); Absolute Lymphocyte Count 1.29 10^3/uL (1.2-3.4); Absolute Monocyte Count 0.79 10^3/uL (0.1-0.8); Absolute Neutrophil Count 4.78 10^3/uL (1.2-6.7); Basophils % 0.7; Eosinophils % 4.4; HCT 39.7 % (40.0-50.0); Immature Grans % 0.3; Lymphocytes % 17.8; MCH 27.8 pg (27.0-33.0); MCHC 32.7 % (32.0-36.0); MCV 85 fL (80-95); MPV 11.7 fL (8.0-11.0); Monocytes % 10.9; Neutrophils % 65.9; Platelet Count 200 10^3/uL (130-400); RBC 4.67 10^6/uL (4.36-5.78); RDW 13.8 % (11.8-14.1); RDW-SD 42.8 fL; WBC 7.25 10^3/uL (4.4-10.8)
[2022-04-25 14:31] LABS: ALT 38 U/L (16-63); AST 28 U/L (15-37); Albumin 3.3 g/dL (3.4-5.0); Alkaline Phosphatase 97 U/L (46-116); Anion Gap 11.7 mmol/L (3-11); BUN 21 mg/dL (7-18); Bilirubin, Total 0.3 mg/dL (0.2-1.0); CO2 24.3 mmol/L (21.0-32.0); CREATININE 1.1 mg/dL (0.70-1.30); Calcium 8.8 mg/dL (8.5-10.1); Chloride 104 mmol/L (98-107); Folate 17.9 ng/mL (8.6-20.0); Glucose 139 mg/dL (74-106); Potassium 4.1 mmol/L (3.5-5.1); Sodium 140 mmol/L (136-145); Total Protein 7.3 g/dL (6.4-8.2); Vitamin B12 582 pg/mL (193-986)
== END 2022-04-25 15:23 | disposition home or self-care (01) ==
LOC: LBN 15:22
PROVIDERS: PCP Family Medicine; Visit Provider Nurse Practitioner Gerontology
DX: E11.649 Type 2 diabetes mellitus with hypoglycemia without coma (principal); E11.65 Type 2 diabetes mellitus with hyperglycemia; R26.1 Paralytic gait; R68.89 Other general symptoms and signs
CPT/HCPCS: 80053; 82607; 82746; 83036; 85025

== ENCOUNTER 2022-05-16 18:43 | Outpatient (REF) | payer MEDICARE, MEDICAID, SELFPAY ==
[2022-05-16 21:28] LABS: Abs Immature Grans 0.06 10^3/uL (0.0-0.06); Absolute Basophil Count 0.03 10^3/uL (0.0-0.2); Absolute Eosinophil Count 0.12 10^3/uL (0.0-0.7); Absolute Monocyte Count 1.35 10^3/uL (0.1-0.8); Absolute Neutrophil Count 8.72 10^3/uL (1.2-6.7); Basophils % 0.3; HGB 12.2 g/dL (13.5-17.5); Immature Grans % 0.5; Lymphocytes % 11.2; MCH 27.4 pg (27.0-33.0); MCHC 32.1 % (32.0-36.0); MCV 85 fL (80-95); MPV 12.4 fL (8.0-11.0); Monocytes % 11.7; Neutrophils % 75.3; Platelet Count 186 10^3/uL (130-400); RBC 4.45 10^6/uL (4.36-5.78); RDW 14.3 % (11.8-14.1); RDW-SD 44.3 fL; WBC 11.58 10^3/uL (4.4-10.8)
[2022-05-16 21:43] LABS: NT-proBNP 345 pg/mL (<300)
[2022-05-16 22:21] LABS: Bilirubin Negative (Negative); Blood Moderate (Negative); Clarity Sl Cloudy (Clear); Glucose Negative (Negative); Ketones Negative (Negative); Leukocyte Esterase Moderate (Negative); Nitrite Negative (Negative)
[2022-05-16 22:22] LABS: C & S Indicated? C&S Done As Ordered
[2022-05-16 22:34] LABS: Bacteria Many HPF (Negative); Casts Negative LPF (Negative); Crystals Negative HPF (Negative); Epithelial Cells Negative HPF (Negative); Mucus Negative (Negative); RBC 20-50 HPF (0-2); WBC >50 HPF (0-5)
== END 2022-05-16 18:44 | disposition home or self-care (01) ==
LOC: LBN 18:43
PROVIDERS: PCP Family Medicine; Visit Provider Nurse Practitioner Gerontology
DX: R68.89 Other general symptoms and signs (principal); R26.81 Unsteadiness on feet; R50.9 Fever, unspecified; I87.2 Venous insufficiency (chronic) (peripheral); N40.3 Nodular prostate with lower urinary tract symptoms; R59.9 Enlarged lymph nodes, unspecified
CPT/HCPCS: 87077; 81003; 81015; 83880; 85025; 87086; 87186

== ENCOUNTER 2022-06-27 18:31 | Outpatient (REF) | payer MEDICARE, MEDICAID, SELFPAY ==
[2022-06-27 21:09] LABS: Magnesium 1.5 mg/dL (1.8-2.4)
[2022-06-29 05:39] LABS: Vitamin D 25 Total 20.9 ng/mL (30-100)
== END 2022-06-27 18:32 | disposition home or self-care (01) ==
LOC: LBN 18:31
PROVIDERS: PCP Family Medicine; Visit Provider Nurse Practitioner Gerontology
DX: R68.89 Other general symptoms and signs (principal)
CPT/HCPCS: 82306; 83735

== ENCOUNTER 2022-07-12 16:54 | Outpatient (REF) | payer MEDICARE, MEDICAID, SELFPAY ==
[2022-07-12 18:04] LABS: Hemoglobin A1C 8.3 % (<5.7)
== END 2022-07-12 16:55 | disposition home or self-care (01) ==
LOC: LBN 16:54
PROVIDERS: PCP Family Medicine; Visit Provider Nurse Practitioner Gerontology
DX: E11.649 Type 2 diabetes mellitus with hypoglycemia without coma (principal)
CPT/HCPCS: 83036

== ENCOUNTER 2022-08-01 10:25 | Inpatient (IN) | payer MEDICARE, MEDICAID, SELFPAY ==
[2022-08-01] VITALS (52 sets, daily range): BP systolic 100–149; BP diastolic 48–76; PULSE 81–104; RESP 10–44; TEMP 36.4–37.5; O2SAT 92–97
--- NOTE | 2022-08-01 10:15 | RT.EKG_ITS ---
APPROVED REPORT Exam: Resting ECG Reason for Exam: weakness Patient Location: E HR:97 bpm ECG Measurements Heart Rate 97 AXIS MS 147 P 74 QRSd 95 QRS -41 QT 359 T 2 QTc 456 Conclusion Sinus rhythm...normal P axis, V-rate 60- 99 Inferior infarct, old...Q >35mS, II III aVF
--- NOTE | 2022-08-01 10:15 | DI.RAD_ITS ---
Exam(s) XR PORTABLE CHEST AP EXAM: XR PORTABLE CHEST AP CLINICAL HISTORY: hypoxia. TECHNIQUE: 2D digital imaging was performed. COMPARISON: CR XR CHEST 1V IN DI DEPT from 01/27/2020 CR XR SHOULDER RT COMPLETE 2+V from 09/08/2020 FINDINGS: Single AP portable view. Cardiomegaly again noted. The mediastinum is not widened. Increased markings are again noted in both lung dunlap. However, minimal change from the prior study of 2019. No pleural effusions. No airspac e pulmonary edema. No pneumothorax. IMPRESSION: Minimal change from 2020. Cardiomegaly. No pulmonary edema. No pleural effusions DATA REPOSITORY: RADIATION DOSE DELIVERED:
[2022-08-01] MEDS: Lactated Ringers 1,000 ML 1000 ML IV (10:42)
[2022-08-01] MEDS: methylPREDNISolone SUCC 125 MG VIAL IVP (10:43)
[2022-08-01] MEDS: Albuterol/Ipratropium 3 ML UPD VIAL UPD (10:43)
[2022-08-01 11:11] LABS: Abs Immature Grans 0.08 10^3/uL (0.0-0.06); Absolute Basophil Count 0.03 10^3/uL (0.0-0.2); Absolute Monocyte Count 1.26 10^3/uL (0.1-0.8); Absolute Neutrophil Count 11.12 10^3/uL (1.2-6.7); Basophils % 0.2; HGB 12.3 g/dL (13.5-17.5); Immature Grans % 0.6; MCH 26.7 pg (27.0-33.0); MCHC 32.4 % (32.0-36.0); MCV 82 fL (80-95); MPV 10.7 fL (8.0-11.0); Monocytes % 9.5; Neutrophils % 83.7; Platelet Count 211 10^3/uL (130-400); RBC 4.61 10^6/uL (4.36-5.78); RDW 15.1 % (11.8-14.1); RDW-SD 45.1 fL; WBC 13.29 10^3/uL (4.4-10.8)
[2022-08-01 11:13] LABS: Lactate 2.1 mmol/L (0.6-1.4)
--- NOTE | 2022-08-01 11:28 | W.ED.GENAD ---
Discharge Plan Disposition Patient Disposition: [facility] INPATIENT Condition: Serious Discharge Details Clinical Impression: Urinary tract infection, Acute kidney injury, Leukocytosis, Rash and nonspecific skin eruption, Acute respiratory failure Admit Date/Time: 08/01/22 14:12 Admit Provider: Ashwin Zimmerman Attending Provider: Ashwin Zimmerman Primary Care Provider: Jennifer Cool ED Provider: Merry Bergeron Discharge Data Discharge Date/Time-TO BE ENTERED AT DEPARTURE: 08/01/22 15:10 Medical Decision Making Patient with likely urinary tract infection, 20-50 red blood cells on urinalysis, initially with crackles at bases and peripheral edema with cardiomegaly I did order Lasix secondary to respiratory distress, BiPAP was placed for comfort, tolerating oxygen well but increased work of breathing with fatigue DNR/DNI status Mentation improved after BiPAP administration Ceftriaxone ordered for suspected urinary tract infection, initial presentation with confusion therefore steel CTs ordered with CT head, chest, abdomen, pelvis, questionable appendicitis with 7 to [address] scan, reviewed with Dr. Lyon, nonsurgical candidate, change antibiotic to Zosyn for coverage and surgery will consult Patient received 20 mg of IV Lasix, initially on 3 to 4 L nasal cannula, BiPAP, and then return to nasal cannula at time of admission Blood cultures pending, lactate 2.1, procalcitonin 3.2 Patient will be admitted by Dr. Ramsey to the hospital, medical surgical with telemetry, COVID and flu negative Agreeable to admission at this time Family made aware regarding guarded status Confirmed DNR/DNI Medical Records Medical records reviewed: Yes I reviewed the patient's medical records. Lab Data Lab results reviewed: Yes I reviewed the patient's lab results. HPI General Date/Time Provider Initiated Documentation: 08/01/22 10:27. HPI Narrative: This 76-year-old gentleman with history of onychomycosis, depression, diabetes, hypertension presents with reports of alteration in mental status, fever T-max of 101, hypoxia, 88%. Patient denies any current pain complaints. He states he is having some difficulty breathing. Denies any falls or injuries. She denies any urinary complaints. Symptoms started last evening reportedly. Is not typically oxygen dependent. Related Data Home Medications Medication Instructions Recorded Confirmed amlodipine 10 mg tablet 10 mg PO DAILY 01/27/20 08/01/22 aspirin 81 mg chewable tablet 81 mg PO DAILY 01/27/20 08/01/22 docusate sodium 100 mg tablet 200 mg PO DAILY 01/27/20 08/01/22 ergocalciferol (vitamin D2) 1,250 50,000 unit PO QWEEK 01/27/20 08/01/22 mcg (50,000 unit) capsule (Vitamin D2) finasteride 5 mg tablet 5 mg PO DAILY 01/27/20 08/01/22 glycopyrrolate 1 mg tablet 0.5 mg PO BID 01/27/20 08/01/22 hydrochlorothiazide 25 mg tablet 25 mg PO DAILY 01/27/20 08/01/22 insulin glargine 100 unit/mL (3 65 unit subcut DAILY 01/27/20 08/01/22 mL) subcutaneous pen (Basaglar KwikPen U-100 Insulin) lisinopril 40 mg tablet 40 mg PO DAILY 01/27/20 08/01/22 simvastatin 20 mg tablet 20 mg PO DAILY 01/27/20 08/01/22 venlafaxine 150 mg 75 mg PO DAILY 01/27/20 08/01/22 capsule,extended release 24 hr insulin aspart U-100 100 unit/mL 10 unit subcut QA 04/28/20 08/01/22 (3 mL) subcutaneous pen (Novolog Flexpen U-100 Insulin aspart) acetaminophen 500 mg tablet 1,000 mg PO Q8H PRN pain #90 tabs 04/29/20 08/01/22 albuterol sulfate 90 mcg/actuation 2 inh inhalation QID PRN Wheezing 08/01/22 08/01/22 aerosol inhaler aripiprazole 5 mg tablet 5 mg PO 1XD 08/01/22 08/01/22 cyanocobalamin (vitamin B-12) 1,000 mcg PO DAILY 08/01/22 08/01/22 1,000 mcg tablet dulaglutide 1.5 mg/0.5 mL 1.5 mg subcut QWEEK 08/01/22 08/01/22 subcutaneous pen injector (Trulicity) magnesium chloride 64 mg 64 mg PO BID 08/01/22 08/01/22 tablet,extended release polyethylene glycol 3350 17 gram 17 g PO DAILY 08/01/22 08/01/22 oral powder packet (Miralax) tacrolimus 0.03 % topical ointment 1 applic topical DAILY 08/01/22 08/01/22 Previous Rx's Medication Instructions Recorded acetaminophen 500 mg tablet 1,000 mg PO Q8H PRN pain #90 tabs 04/29/20 Allergies Allergy/AdvReac Type Severity Reaction Status Date / Time NSAIDS (Non-Steroidal Allergy Unverified 08/01/22 10:33 Anti-Inflamma General Stated Complaint: GenMedical JANE: 3 Review of Systems All systems reviewed & are unremarkable except as noted in HPI and below PFSH All Active Problems (Updated 08/03/22 @ 08:26 by CODY Hendricks) Leukocytosis (Acute) Acute respiratory failure (Acute) Rash and nonspecific skin eruption (Acute) Leukocytosis (Acute) Acute kidney injury (Acute) Type 2 diabetes mellitus (Acute) Urinary tract infection (Acute) Onychomycosis (Acute) Fracture dislocation of right shoulder joint (Acute) Depression (Chronic) Hypertension (Chronic) Diabetes mellitus (Chronic) Dislocated shoulder (Acute) Medical History (Updated 08/03/22 @ 08:26 by CODY Hendricks) Antisocial personality disorder Bipolar disorder Chronic kidney disease Parkinson disease Thrombocytopenia Venous insufficiency Social History Smoking/Tobacco Use Status: Former Tobacco Use Smoking risk assessment performed?: Yes Alcohol Intake: former Substance use type: does not use Current gender identity: male Additional Social history: pt at the [facility] Exam Const General: cooperative and ill appearing Resp Effort & Inspection: tachypneic Auscultation: crackles Cardio Rate: regular rate Rhythm: regular rhythm Heart Sounds: no murmurs GI Inspection: normal to inspection Skin General skin exam: no rashes or lesions noted Neuro General: patient alert Other: Alert and oriented x2,slowed speech Extrem Other: 1+ peripheral edema to bilateral lower extremities, distal pulses intact Course Vital Signs Vital signs: Vital Signs Temperature 37.5 C 08/01/22 10:17 Pulse 102 H 08/01/22 10:17 Respiratory Rate 28 H 08/01/22 10:17 Blood Pressure 118/58 L 08/01/22 10:17 Pulse Oximetry 97 08/01/22 10:17 Temperature 37.5 C 08/01/22 10:17 Temperature Source Temporal Artery Scan 08/01/22 10:17 Pulse 97 H 08/01/22 10:43 Respiratory Rate 40 H 08/01/22 10:43 Respiratory Effort 08/01/22 10:25 Blood Pressure 118/58 L 08/01/22 10:17 Pulse Oximetry 92 08/01/22 10:43 Oxygen Delivery Method Nasal Cannula 08/01/22 10:43 Oxygen Flow Rate 2 08/01/22 10:43 Pain Level 0 08/01/22 10:17 Lab/Test Results Lab/Test Results: 08/01/22 11:03 Blood Blood Culture - Pending 08/01/22 10:16 Blood Blood Culture - Pending Laboratory Tests Range/Units 08/01/22 08/01/22 08/01/22 11:03 11:03 11:03 WBC (4.4-10.8) 10^3/uL 13.29 H RBC (4.36-5.78) 10^6/uL 4.61 Hgb (13.5-17.5) g/dL 12.3 L Hct (40.0-50.0) % 38.0 L MCV (80-95) fL 82 MCH (27.0-33.0) pg 26.7 L MCHC (32.0-36.0) % 32.4 RDW (11.8-14.1) % 15.1 H Plt Count (130-400) 10^3/uL 211 MPV (8.0-11.0) fL 10.7 Immature Gran % 0.6 Neutrophils % 83.7 Lymphocytes % 6.0 Monocytes % 9.5 Eosinophils % 0.0 Basophils % 0.2 Nucleated RBC % (0.0-0.3) % 0.0 Absolute Neutrophils (1.2-6.7) 10^3/uL 11.12 H Absolute Lymphocytes (1.2-3.4) 10^3/uL 0.80 L Absolute Monocytes (0.1-0.8) 10^3/uL 1.26 H Absolute Eosinophils (0.0-0.7) 10^3/uL 0.00 Absolute Basophils (0.0-0.2) 10^3/uL 0.03 VBG Lactate (0.6-1.4) mmol/L 2.1 H Sodium Cancelled Potassium Cancelled Chloride Cancelled Carbon Dioxide Cancelled Anion Gap Cancelled BUN Cancelled Creatinine Cancelled Est GFR (CKD-EPI 2020) Cancelled Glucose Cancelled Calcium Cancelled Total Bilirubin Cancelled AST Cancelled ALT Cancelled Alkaline Phosphatase Cancelled C-Reactive Protein Cancelled Total Protein Cancelled Albumin Cancelled Critical Care Time Critical Care Time Total Critical Care Time: 50 Attestation: Sepsis, telemetry monitoring, BiPAP administration, oxygen supplementation, IV antibiotics secondary to sepsis, surgical consultation with possible appendicitis, urinary tract infection, IV fluid hydration, admission to the hospital
--- NOTE | 2022-08-01 11:30 | DI.CT_ITS ---
Exam(s) CT CHEST/ABD/PEL W EXAM: CT CHEST/ABD/PEL W CLINICAL HISTORY: fever, hypoxia, abdominal pain. TECHNIQUE: Imaging Protocol: Axial computed tomography images with coronal and sagittal reformatted images were created and reviewed CONTRAST MATERIAL: Intravenous: Omnipaque 350 Contrast volume:100 ml Oral: None COMPARISON: CR XR CHEST 1V IN DI DEPT from 01/27/[address] HEAD WO from 08/01/2022 FINDINGS: CHEST: LUNGS: COPD findings in both lung dunlap. Chronic appearing interstitial disease bilaterally. This most prominent inferiorly in the posterior and lateral basal segments of both lower lobes. No pleura l effusions.. MEDIASTINUM: There is no hilar nor mediastinal adenopathy. Visualized thyroid unremarkable. CARDIAC: Heart size is upper normal. There is no pericardial effusion.Caliber of the thoracic aorta is within normal limits. No evidence of dissection. OSSEOUS: No significant osseous lesions.No fractures.. ABDOMEN: There is a tiny amount of perihepatic ascites. LIVER: Liver is prominent and appears somewhat cirrhotic. There are no discrete focal hepatic lesions ident ified. GALLBLADDER/BILIARY: Distended but without obvious calcified gallstones. No prominent wall edema alt rex somewhat blurred due to motion artifact. CBD is not dilated. PANCREAS: Pancreas appears atrophic. No pancreatic mass is identified. SPLEEN: Splenomegaly noted. No intrasplenic lesions. Splenic and portal veins are patent. Superior mesenteric vein is patent. ADRENALS: There are no significant adrenal masses. KIDNEYS: No calculi nor hydronephrosis. No solid renal masses. No cysts evident. ABDOMINAL AORTA: Heavily calcified. No significant aneurysm. LYMPH NODES: There is no retroperitoneal nor paraaortic adenopathy. ABDOMINAL WALL: No evidence of significant anterior abdominal wall nor inguinal hernia. GI: There is no evidence of bowel obstruction. PELVIS: LYMPH NODES: There is no intrapelvic nor inguinal adenopathy. GI: Appendix is upper normal-minimally prominent diameter of 7-8 millimeters. Mild surrounding strea bi although this is probably exaggerated by the amount of motion here. URINARY BLADDER: Urinary bladder wall is significantly thickened and trabeculated and there is a left -sided Hutch diverticulum which measures approximately 1.5 x 1.5 cm. REPRODUCTIVE: Prostate gland not enlarged. Seminal vesicles normal size. OSSEOUS: No significant osseous lesions. No fractures. IMPRESSION: 1. COPD and chronic appearing interstitial lung disease. No areas of obvious acute appearing infiltr ate and no pleural effusions. No intrathoracic adenopathy 2. Distended gallbladder which does not contain obvious calcified gallstones. No prominent gallbladd er wall edema. CBD is not dilated. Pancreas is atrophic. 3. Appendix diameter is slightly prominent measuring 7-8 millimeters. Correlation with any history o r physical findings of appendicitis recommended. 4. Urinary bladder wall is diffusely thickened and trabeculated. There is a 1.5 by 1.5 cm Hutch dive rticulum on the left side of the bladder 5. Hepatic cirrhosis. Hepatomegaly. Mild splenomegaly. Mild ascites. Report called by myself to ER provider. RADIATION DOSE DELIVERED: Total DLP DATA REPOSITORY: All CT scans at this facility are submitted to the National Radiology Data Registry (NRDR) Dose Index Registry (DIR) with the [employer] ([employer]). RADIATION OPTIMIZATION: All CT scans at this facility use at least one of these dose optimization te chniques: automated exposure control; mA and/or kV adjustment per patient size (includes targeted exa ms where dose is matched to clinical indication); or iterative reconstruction.
--- NOTE | 2022-08-01 11:30 | DI.CT_ITS ---
Exam(s) CT HEAD WO EXAM: CT HEAD WO CLINICAL HISTORY: ams. TECHNIQUE: Imaging Protocol: Axial computed tomography images with coronal and sagittal reformatted images were created and reviewed COMPARISON: CT CT HEAD WO from 04/28/2020 FINDINGS: There are no skull fractures. There is no fluid in the visualized paranasal sinuses. There is no evidence of intracranial hemorrhage, mass effect, or shift of midline structures. There are no extra-axial fluid collections. The ventricles are not enlarged or shifted and there is no blo od within the ventricular system nor within the basal cisterns. Again noted is some periventricular white matter hypodensity bilaterally consistent with chronic smal l vessel disease. No obvious acute territorial infarct. No hemorrhage. IMPRESSION: No acute intracranial findings on this noninfused CT scan of the brain. Chronic small-vessel white matter ischemic changes in the periventricular white matter again noted, s imilar to the prior study March 2020. RADIATION DOSE DELIVERED: Total DLP DATA REPOSITORY: All CT scans at this facility are submitted to the National Radiology Data Registry (NRDR) Dose Index Registry (DIR) with the [employer] (ACR). RADIATION OPTIMIZATION: All CT scans at this facility use at least one of these dose optimization te chniques: automated exposure control; mA and/or kV adjustment per patient size (includes targeted exa ms where dose is matched to clinical indication); or iterative reconstruction.
[2022-08-01 11:34] LABS: ALT 71 U/L (16-63); AST 60 U/L (15-37); Albumin 2.8 g/dL (3.4-5.0); Alkaline Phosphatase 116 U/L (46-116); Anion Gap 6.7 mmol/L (3-11); BUN 25 mg/dL (7-18); Bilirubin, Total 0.7 mg/dL (0.2-1.0); C-Reactive Protein 4.03 mg/dL (0.0-0.3); CO2 27.3 mmol/L (21.0-32.0); CREATININE 1.5 mg/dL (0.70-1.30); Chloride 101 mmol/L (98-107); Estimated GFR 48.55 (mL/min/1.73m2); Glucose 142 mg/dL (74-106); NT-proBNP 727 pg/mL (<300); Potassium 4.2 mmol/L (3.5-5.1); Sodium 135 mmol/L (136-145); Total Protein 7.6 g/dL (6.4-8.2); Troponin I < 50 ng/L (<or=60)
[2022-08-01 11:34] LABS: COVID-19 PCR Negative (Negative); Influenza A PCR Negative (Negative); Influenza B PCR Negative (Negative); RSV PCR Negative (Negative)
[2022-08-01 12:13] LABS: Procalcitonin 3.2 ng/mL
[2022-08-01 12:40] LABS: BE (Venous) 3 mmol/L (-2-3); HCO3 (Venous) 28 mmol/L (23-28); O2 Sat (Venous) 58 %; TCO2 (Venous) 25 mmol/L (24-29); pCO2 (Venous) 42 mmHg (41-51); pH (Venous) 7.42 (7.31-7.41); pO2 (Venous) 30 mmHg
[2022-08-01] MEDS: cefTRIAXone 2 GM/50 ML BAG IVPB (12:41)
[2022-08-01 13:17] LABS: Bilirubin Negative (Negative); Blood Small (Negative); Clarity Sl Cloudy (Clear); Glucose Negative (Negative); Ketones Negative (Negative); Leukocyte Esterase Moderate (Negative); Nitrite Negative (Negative); Urobilinogen 0.2 EU/dL (Up TO 0.2)
[2022-08-01] MEDS: Furosemide 20 MG/2 ML VIAL IVP (13:21)
[2022-08-01 13:37] LABS: Bacteria Moderate HPF (Negative); C & S Indicated? Yes; Casts Negative LPF (Negative); Crystals Negative HPF (Negative); Epithelial Cells Rare HPF (Negative); Mucus Negative (Negative); WBC 20-50 HPF (0-5)
--- NOTE | 2022-08-01 14:02 | HPE_ITS ---
Date of service: 08/01/22 Time of Service: 14:02 Assessment and Plan Assessment and plan (1) Urinary tract infection: Status: Acute Assessment and plan: cultures pending, given zosyn in the ED day 1 given IV fluids, will recheck lactic in 3 hours. (2) Type 2 diabetes mellitus: Status: Acute Assessment and plan: A1C 8.03 Jul 2022 continue diabetic diet with blood sugar checks ac/hs with coverage. anticipate hyperglycemia in setting of IV steroids. will continue lantus at home dosing for now. (3) Hypertension: Status: Chronic Assessment and plan: will hold lisinopril and hctz pending kidney function tomorrow. continue amlodipine monitor and adjust as needed (4) Acute kidney injury: Status: Acute Assessment and plan: likely d/t dehydration in setting of sepsis. was given IV fluids, but also received lasix and IV contrast. will hold nephrotoxic drugs for now and closely monitor. continue with IV hydration for now. discussed with DR Zimmerman History of Present Illness History of Present Illness Chief Complaint: fever Review of Systems All systems reviewed & are unremarkable except as noted in HPI and below PFSH All Active Problems (Updated 08/02/22 @ 14:52 by Stefani Quinn NP) Rash and nonspecific skin eruption (Acute) Leukocytosis (Acute) Acute kidney injury (Acute) Type 2 diabetes mellitus (Acute) Urinary tract infection (Acute) Onychomycosis (Acute) Fracture dislocation of right shoulder joint (Acute) Depression (Chronic) Hypertension (Chronic) Diabetes mellitus (Chronic) Dislocated shoulder (Acute) Medical History (Updated 08/02/22 @ 14:52 by Stefani Quinn NP) Antisocial personality disorder Bipolar disorder Chronic kidney disease Parkinson disease Thrombocytopenia Venous insufficiency Social History Smoking/Tobacco Use Status: Former Tobacco Use Smoking risk assessment performed?: Yes Alcohol Intake: former Substance use type: does not use Current gender identity: male Additional Social history: pt at the [facility] Allergies and Home Medications Allergies Allergy/AdvReac Type Severity Reaction Status Date / Time NSAIDS (Non-Steroidal Allergy Unverified 08/01/22 10:33 Anti-Inflamma Home Medications Medication Instructions Recorded Confirmed Type amlodipine 10 mg tablet 10 mg PO DAILY 01/27/20 08/01/22 History aspirin 81 mg chewable tablet 81 mg PO DAILY 01/27/20 08/01/22 History docusate sodium 100 mg tablet 200 mg PO DAILY 01/27/20 08/01/22 History ergocalciferol (vitamin D2) 1,250 50,000 unit PO QWEEK 01/27/20 08/01/22 History mcg (50,000 unit) capsule (Vitamin D2) finasteride 5 mg tablet 5 mg PO DAILY 01/27/20 08/01/22 History glycopyrrolate 1 mg tablet 0.5 mg PO BID 01/27/20 08/01/22 History hydrochlorothiazide 25 mg tablet 25 mg PO DAILY 01/27/20 08/01/22 History insulin glargine 100 unit/mL (3 65 unit subcut DAILY 01/27/20 08/01/22 History mL) subcutaneous pen (Basaglar KwikPen U-100 Insulin) lisinopril 40 mg tablet 40 mg PO DAILY 01/27/20 08/01/22 History simvastatin 20 mg tablet 20 mg PO DAILY 01/27/20 08/01/22 History venlafaxine 150 mg 75 mg PO DAILY 01/27/20 08/01/22 History capsule,extended release 24 hr insulin aspart U-100 100 unit/mL 10 unit subcut QAC 04/28/20 08/01/22 History (3 mL) subcutaneous pen (Novolog Flexpen U-100 Insulin aspart) acetaminophen 500 mg tablet 1,000 mg PO Q8H PRN pain #90 tabs 04/29/20 08/01/22 Rx albuterol sulfate 90 mcg/actuation 2 inh inhalation QID PRN Wheezing 08/01/22 08/01/22 History aerosol inhaler aripiprazole 5 mg tablet 5 mg PO 1XD 08/01/22 08/01/22 History cyanocobalamin (vitamin B-12) 1,000 mcg PO DAILY 08/01/22 08/01/22 History 1,000 mcg tablet dulaglutide 1.5 mg/0.5 mL 1.5 mg subcut QWEEK 08/01/22 08/01/22 History subcutaneous pen injector (Trulicity) magnesium chloride 64 mg 64 mg PO BID 08/01/22 08/01/22 History tablet,extended release polyethylene glycol 3350 17 gram 17 g PO DAILY 08/01/22 08/01/22 History oral powder packet (Miralax) tacrolimus 0.03 % topical ointment 1 applic topical DAILY 08/01/22 08/01/22 History Exam Const General: comfortable and no acute distress Nutritional Appearance: obese Orientation: confused HENGA Head: normocephalic and atraumatic Neck Neck: normal visual inspection Resp Effort & Inspection: normal respiratory effort Auscultation: diminished lung sounds GI Inspection: normal to inspection and large pannus Palpation: soft, no hepatosplenomegaly and nontender General: other (condom catheter intact) Skin Lesions: lesion noted (multiple, see NN, coccyx, between thigh from pereira, on arrival) Rashes: no rashes Neuro General: patient alert, patient awake and patient confused (demented at baseline) Cognition: abnormal cognition Speech: abnormal speech Extrem General: pedal edema bilaterally Results Labs Result diagrams: 08/02/22 06:20 08/02/22 06:20 Labs: Laboratory Results - last 24 hr 08/01/22 08/01/22 08/01/22 10:51 11:03 11:03 WBC RBC Hgb Hct MCV MCH MCHC RDW Plt Count MPV Immature Gran % Neutrophils % Lymphocytes % Monocytes % Eosinophils % Basophils % Nucleated RBC % Absolute Neutrophils Absolute Lymphocytes Absolute Monocytes Absolute Eosinophils Absolute Basophils VBG pH VBG pCO2 VBG pO2 VBG HCO3 VBG Total CO2 VBG O2 Saturation VBG Base Excess VBG Lactate Sodium 135 L Potassium 4.2 Chloride 101 Carbon Dioxide 27.3 Anion Gap 6.7 BUN 25 H Creatinine 1.5 H Est GFR (CKD-EPI 2020) 48.55 Glucose 142 H Calcium 9.0 Total Bilirubin 0.7 AST 60 H ALT 71 H Alkaline Phosphatase 116 Troponin I < 50 C-Reactive Protein 4.03 H NT-Pro-B Natriuret Pep 727 H Total Protein 7.6 Albumin 2.8 L Procalcitonin 3.2 Urine Color Urine Clarity Urine pH Ur Specific [place] Urine Protein Urine Ketones Urine Blood Urine Nitrite Urine Bilirubin Urine Urobilinogen Ur Leukocyte Esterase Urine RBC Urine WBC Ur Epithelial Cells Urine Crystals Urine Bacteria Urine Casts Urine Mucus Ur Culture Indicated? Urine Glucose COVID-19 Source Not Applicable SARS-CoV-2 (PCR) Negative Influenza Type A (PCR) Negative Influenza Type B (PCR) Negative RSV (PCR) Negative 08/01/22 08/01/22 08/01/22 11:03 11:03 11:03 WBC 13.29 H RBC 4.61 Hgb 12.3 L Hct 38.0 L MCV 82 MCH 26.7 L MCHC 32.4 RDW 15.1 H Plt Count 211 MPV 10.7 Immature Gran % 0.6 Neutrophils % 83.7 Lymphocytes % 6.0 Monocytes % 9.5 Eosinophils % 0.0 Basophils % 0.2 Nucleated RBC % 0.0 Absolute Neutrophils 11.12 H Absolute Lymphocytes 0.80 L Absolute Monocytes 1.26 H Absolute Eosinophils 0.00 Absolute Basophils 0.03 VBG pH VBG pCO2 VBG pO2 VBG HCO3 VBG Total CO2 VBG O2 Saturation VBG Base Excess VBG Lactate 2.1 H Sodium Cancelled Potassium Cancelled Chloride Cancelled Carbon Dioxide Cancelled Anion Gap Cancelled BUN Cancelled Creatinine Cancelled Est GFR (CKD-EPI 2020) Cancelled Glucose Cancelled Calcium Cancelled Total Bilirubin Cancelled AST Cancelled ALT Cancelled Alkaline Phosphatase Cancelled Troponin I C-Reactive Protein Cancelled NT-Pro-B Natriuret Pep Total Protein Cancelled Albumin Cancelled Procalcitonin Urine Color Urine Clarity Urine pH Ur Specific [place] Urine Protein Urine Ketones Urine Blood Urine Nitrite Urine Bilirubin Urine Urobilinogen Ur Leukocyte Esterase Urine RBC Urine WBC Ur Epithelial Cells Urine Crystals Urine Bacteria Urine Casts Urine Mucus Ur Culture Indicated? Urine Glucose COVID-19 Source SARS-CoV-2 (PCR) Influenza Type A (PCR) Influenza Type B (PCR) RSV (PCR) 08/01/22 08/01/22 12:36 13:09 WBC RBC Hgb Hct MCV MCH MCHC RDW Plt Count MPV Immature Gran % Neutrophils % Lymphocytes % Monocytes % Eosinophils % Basophils % Nucleated RBC % Absolute Neutrophils Absolute Lymphocytes Absolute Monocytes Absolute Eosinophils Absolute Basophils VBG pH 7.42 H VBG pCO2 42 VBG pO2 30 VBG HCO3 28 VBG Total CO2 25 VBG O2 Saturation 58 VBG Base Excess 3 VBG Lactate Sodium Potassium Chloride Carbon Dioxide Anion Gap BUN Creatinine Est GFR (CKD-EPI 2020) Glucose Calcium Total Bilirubin AST ALT Alkaline Phosphatase Troponin I C-Reactive Protein NT-Pro-B Natriuret Pep Total Protein Albumin Procalcitonin Urine Color Yellow Urine Clarity Sl Cloudy Urine pH 7.0 Ur Specific [place] 1.010 Urine Protein 100 H Urine Ketones Negative Urine Blood Small H Urine Nitrite Negative Urine Bilirubin Negative Urine Urobilinogen 0.2 Ur Leukocyte Esterase Moderate H Urine RBC 10-20 H Urine WBC 20-50 H Ur Epithelial Cells Rare Urine Crystals Negative Urine Bacteria Moderate Urine Casts Negative Urine Mucus Negative Ur Culture Indicated? Yes Urine Glucose Negative COVID-19 Source SARS-CoV-2 (PCR) Influenza Type A (PCR) Influenza Type B (PCR) RSV (PCR) Last Vital Signs Temp 37.5 C 08/01/22 10:17 Pulse 87 08/01/22 12:50 Resp 33 H 08/01/22 12:50 BP 118/58 L 08/01/22 10:17 Pulse Ox 95 08/01/22 12:50
[2022-08-01] MEDS: Lactated Ringers 1,000 ML 125 ML IV (14:15)
[2022-08-01] MEDS: PIPERACILLIN/TAZO 3.375 GM in Normal Saline 50 ML IVPB ×2 (14:40→20:13)
--- NOTE | 2022-08-01 16:14 | TELEP.MEDREC ---
Date of service: 08/01/22 Time of Service: 16:14 Telepharmacy Home Med Rec Allergies Allergies: NSAIDS (Non-Steroidal Anti-Inflamma Allergy (Unverified 08/01/22 10:33) Interview Person Interviewed: [facility] staff(DIAN CRANDALL) and [facility] Quality Quality of Interview/Accuracy of Medication List: Good Changes made to Home Medication List: ADDITIONS: aripiprazole, magnesium, trulicity , cyanocobalamin, miralax, tacrolimus ointment , albuterol inhaler DELETIONS: naproxen CHANGES: vitamin d decreased from 50 000 units daily to weekly Hydrochlorothiazide increasedf rom 12.5mg to 25mg daily Additional Notes Additional Notes: none Recommended Changes Recommended Changes(reason for recommendation): none Attestation: The home medication list is now updated to the best of my knowledge and is ready to be reconciled by the provider. Please contact the TelePharmacy Medication Reconciliation Pharmacist at for any questions.
--- NOTE | 2022-08-01 16:43 | W.SURGCON ---
Date of service: 08/01/22 Time of Service: 16:43 Assessment and Plan Assessment and plan (1) Leukocytosis: Status: Acute Assessment and plan: Mr. Sabillon is a 76-year-old gentleman who comes to the emergency department with altered mental status and fevers. One of the CT scan findings was of a slightly prominent appendix measuring 7 to 8 millimeters. There was question of stranding but the role also motion artifact. On examination today he is not really communicating well. He does not complain of any pain. When I push on his belly he has not complaining of pain or pushing my hand away. It is hard to say whether he has early onset appendicitis or whether this is all from urosepsis. At this point I recommend treating with Zosyn for possible early at appendicitis. I do not feel that he is currently a candidate for surgery. We will see him again tomorrow and do another abdominal exam. The patient has been started on Zosyn which will cover his appendicitis if he indeed has that. History of Present Illness Narrative: Mr. Sabillon is a 76 year old male who came to the emergency department today complaining of altered mental status status as well as fevers up to 101. He was hypoxic on admission to the ER sats of 88% on room air. He did not complain of any pain at the time of his admission. He did complain of difficulty breathing. He luther denied any trauma or urinary complaints. The patient was scanned from head to pelvis. I reviewed the CT scan myself. The impression from the radiologist is as follows: 1. COPD and chronic appearing interstitial lung disease.? No areas of obvious acute appearing infiltrate and no pleural effusions.? No intrathoracic adenopathy 2. Distended gallbladder which does not contain obvious calcified gallstones.? No prominent gallbladder wall edema.? CBD is not dilated.? Pancreas is atrophic. 3. Appendix diameter is slightly prominent measuring 7-8 millimeters.? Correlation with any history or physical findings of appendicitis recommended. 4. Urinary bladder wall is diffusely thickened and trabeculated.? There is a 1.5 by 1.5 cm Hutch diverticulum on the left side of the bladder 5.? Hepatic cirrhosis.? Hepatomegaly.? Mild splenomegaly.? Mild ascites. On discussion with the emergency department provider she stated that on examination he was really tender everywhere. When I saw the patient on [facility] he is really unable to answer any my questions. He grunts when I ask him if he has pain. He is currently not making any sense. Because of the slightly prominent appendix, his mild leukocytosis I was asked to see the patient. The patient is a DNR/DNI. Consults Consult date: 08/01/22 Requesting physician: Ashwni Zimmerman Review of Systems Unobtainable due to mental status PFSH All Active Problems (Updated 08/01/22 @ 16:50 by Jolly Lyon MD) Leukocytosis (Acute) Acute kidney injury (Acute) Type 2 diabetes mellitus (Acute) Urinary tract infection (Acute) Onychomycosis (Acute) Fracture dislocation of right shoulder joint (Acute) Depression (Chronic) Hypertension (Chronic) Diabetes mellitus (Chronic) Dislocated shoulder (Acute) Medical History (Updated 08/01/22 @ 16:50 by Jolly Lyon MD) Antisocial personality disorder Bipolar disorder Chronic kidney disease Parkinson disease Thrombocytopenia Venous insufficiency Social History Smoking/Tobacco Use Status: Former Tobacco Use Smoking risk assessment performed?: Yes Alcohol Intake: former Substance use type: does not use Current gender identity: male Additional [facility] history[facility] Exam Const General: comfortable and no acute distress Nutritional Appearance: obese Orientation: confused HENID Head: normocephalic and atraumatic GI Inspection: normal to inspection and large pannus Palpation: soft, no hepatosplenomegaly and nontender Results Last Vital Signs Temp 99.3 F 08/01/22 15:31 Pulse 94 H 08/01/22 15:31 Resp 17 08/01/22 15:31 BP 145/76 H 08/01/22 15:31 Pulse Ox 93 08/01/22 15:31 Labs Result diagrams: 08/01/22 11:03 08/01/22 11:03 Labs: Laboratory Results - last 24 hr 08/01/22 08/01/22 08/01/22 10:51 11:03 11:03 WBC RBC Hgb Hct MCV MCH MCHC RDW Plt Count MPV Immature Gran % Neutrophils % Lymphocytes % Monocytes % Eosinophils % Basophils % Nucleated RBC % Absolute Neutrophils Absolute Lymphocytes Absolute Monocytes Absolute Eosinophils Absolute Basophils VBG pH VBG pCO2 VBG pO2 VBG HCO3 VBG Total CO2 VBG O2 Saturation VBG Base Excess VBG Lactate Sodium 135 L Potassium 4.2 Chloride 101 Carbon Dioxide 27.3 Anion Gap 6.7 BUN 25 H Creatinine 1.5 H Est GFR (CKD-EPI 2020) 48.55 Glucose 142 H Calcium 9.0 Total Bilirubin 0.7 AST 60 H ALT 71 H Alkaline Phosphatase 116 Troponin I < 50 C-Reactive Protein 4.03 H NT-Pro-B Natriuret Pep 727 H Total Protein 7.6 Albumin 2.8 L Procalcitonin 3.2 Urine Color Urine Clarity Urine pH Ur Specific [place] Urine Protein Urine Ketones Urine Blood Urine Nitrite Urine Bilirubin Urine Urobilinogen Ur Leukocyte Esterase Urine RBC Urine WBC Ur Epithelial Cells Urine Crystals Urine Bacteria Urine Casts Urine Mucus Ur Culture Indicated? Urine Glucose COVID-19 Source Not Applicable SARS-CoV-2 (PCR) Negative Influenza Type A (PCR) Negative Influenza Type B (PCR) Negative RSV (PCR) Negative 08/01/22 08/01/22 08/01/22 11:03 11:03 11:03 WBC 13.29 H RBC 4.61 Hgb 12.3 L Hct 38.0 L MCV 82 MCH 26.7 L MCHC 32.4 RDW 15.1 H Plt Count 211 MPV 10.7 Immature Gran % 0.6 Neutrophils % 83.7 Lymphocytes % 6.0 Monocytes % 9.5 Eosinophils % 0.0 Basophils % 0.2 Nucleated RBC % 0.0 Absolute Neutrophils 11.12 H Absolute Lymphocytes 0.80 L Absolute Monocytes 1.26 H Absolute Eosinophils 0.00 Absolute Basophils 0.03 VBG pH VBG pCO2 VBG pO2 VBG HCO3 VBG Total CO2 VBG O2 Saturation VBG Base Excess VBG Lactate 2.1 H Sodium Cancelled Potassium Cancelled Chloride Cancelled Carbon Dioxide Cancelled Anion Gap Cancelled BUN Cancelled Creatinine Cancelled Est GFR (CKD-EPI 2020) Cancelled Glucose Cancelled Calcium Cancelled Total Bilirubin Cancelled AST Cancelled ALT Cancelled Alkaline Phosphatase Cancelled Troponin I C-Reactive Protein Cancelled NT-Pro-B Natriuret Pep Total Protein Cancelled Albumin Cancelled Procalcitonin Urine Color Urine Clarity Urine pH Ur Specific [place] Urine Protein Urine Ketones Urine Blood Urine Nitrite Urine Bilirubin Urine Urobilinogen Ur Leukocyte Esterase Urine RBC Urine WBC Ur Epithelial Cells Urine Crystals Urine Bacteria Urine Casts Urine Mucus Ur Culture Indicated? Urine Glucose COVID-19 Source SARS-CoV-2 (PCR) Influenza Type A (PCR) Influenza Type B (PCR) RSV (PCR) 08/01/22 08/01/22 12:36 13:09 WBC RBC Hgb Hct MCV MCH MCHC RDW Plt Count MPV Immature Gran % Neutrophils % Lymphocytes % Monocytes % Eosinophils % Basophils % Nucleated RBC % Absolute Neutrophils Absolute Lymphocytes Absolute Monocytes Absolute Eosinophils Absolute Basophils VBG pH 7.42 H VBG pCO2 42 VBG pO2 30 VBG HCO3 28 VBG Total CO2 25 VBG O2 Saturation 58 VBG Base Excess 3 VBG Lactate Sodium Potassium Chloride Carbon Dioxide Anion Gap BUN Creatinine Est GFR (CKD-EPI 2020) Glucose Calcium Total Bilirubin AST ALT Alkaline Phosphatase Troponin I C-Reactive Protein NT-Pro-B Natriuret Pep Total Protein Albumin Procalcitonin Urine Color Yellow Urine Clarity Sl Cloudy Urine pH 7.0 Ur Specific [place] 1.010 Urine Protein 100 H Urine Ketones Negative Urine Blood Small H Urine Nitrite Negative Urine Bilirubin Negative Urine Urobilinogen 0.2 Ur Leukocyte Esterase Moderate H Urine RBC 10-20 H Urine WBC 20-50 H Ur Epithelial Cells Rare Urine Crystals Negative Urine Bacteria Moderate Urine Casts Negative Urine Mucus Negative Ur Culture Indicated? Yes Urine Glucose Negative COVID-19 Source SARS-CoV-2 (PCR) Influenza Type A (PCR) Influenza Type B (PCR) RSV (PCR)
[2022-08-01] MEDS: Insulin Aspart 300 UNITS/3 ML PEN SC ×2 (18:01→21:05)
[2022-08-01 18:05] LABS: Lactate 1.7 mmol/L (0.6-1.4)
[2022-08-01] MEDS: Simvastatin 20 MG TAB PO (20:13)
[2022-08-01] MEDS: Normal Saline Flush 10 ML SYR IVP (20:13)
[2022-08-01] MEDS: Glycopyrrolate 1 MG TAB 0.5 MG PO (20:14)
[2022-08-02] MEDS: LORazepam 2 MG/ML VIAL 0.5 MG IVP (02:22)
[2022-08-02] MEDS: Normal Saline Flush 10 ML SYR IVP ×5 (02:23→20:30)
[2022-08-02] MEDS: PIPERACILLIN/TAZO 3.375 GM in Normal Saline 50 ML IVPB ×4 (02:25→20:24)
[2022-08-02] MEDS: Lactated Ringers 1,000 ML 75 ML IV (03:45)
[2022-08-02 06:44] LABS: Abs Immature Grans 0.03 10^3/uL (0.0-0.06); Absolute Basophil Count 0.01 10^3/uL (0.0-0.2); Absolute Lymphocyte Count 0.68 10^3/uL (1.2-3.4); Absolute Monocyte Count 0.94 10^3/uL (0.1-0.8); Absolute Neutrophil Count 6.39 10^3/uL (1.2-6.7); Basophils % 0.1; HCT 38.4 % (40.0-50.0); HGB 12.2 g/dL (13.5-17.5); Immature Grans % 0.4; Lymphocytes % 8.4; MCH 26.2 pg (27.0-33.0); MCHC 31.8 % (32.0-36.0); MCV 83 fL (80-95); MPV 11.2 fL (8.0-11.0); Monocytes % 11.7; Neutrophils % 79.4; Platelet Count 192 10^3/uL (130-400); RBC 4.65 10^6/uL (4.36-5.78); RDW 15.1 % (11.8-14.1); RDW-SD 45.9 fL; WBC 8.05 10^3/uL (4.4-10.8)
[2022-08-02 07:01] LABS: BUN 35 mg/dL (7-18); CREATININE 1.3 mg/dL (0.70-1.30); Calcium 9.1 mg/dL (8.5-10.1); Chloride 101 mmol/L (98-107); Estimated GFR 57.65 (mL/min/1.73m2); Glucose 270 mg/dL (74-106); Sodium 136 mmol/L (136-145)
[2022-08-02 07:20] VITALS: BP 190/83; PULSE 100; RESP 24; TEMP 37.2; O2SAT 93
[2022-08-02] MEDS: Enoxaparin 40 MG/0.4 ML SYR SC (07:58)
[2022-08-02] MEDS: Insulin Aspart 300 UNITS/3 ML PEN SC ×4 (07:58→22:25)
[2022-08-02] MEDS: Insulin Glargine 300 UNITS/3 ML PEN 65 UNITS SC (07:59)
[2022-08-02] MEDS: amLODIPine 10 MG TAB PO (08:46)
[2022-08-02] MEDS: LORazepam 0.5 MG TAB PO ×2 (08:46→17:07)
[2022-08-02] MEDS: Venlafaxine 37.5 MG CAPCR 75 MG PO (08:49)
[2022-08-02] MEDS: Finasteride 5 MG TAB PO (08:51)
[2022-08-02] MEDS: Docusate Sodium 100 MG CAP 200 MG PO (08:52)
[2022-08-02] MEDS: Aspirin 81 MG CHEW PO (08:52)
[2022-08-02] MEDS: Glycopyrrolate 1 MG TAB 0.5 MG PO ×2 (08:53→20:26)
--- NOTE | 2022-08-02 09:57 | PGE_ITS ---
Date of Service Date of service: 08/02/22 Time of Service: 11:53 Assessment and Plan Assessment and plan (1) Rash and nonspecific skin eruption: Status: Acute Assessment and plan: will charis and monitor for now. involves old IV site, no obvious evidence of infiltrate. elevate (2) Urinary tract infection: Status: Acute Assessment and plan: cultures pending, white count normalized continue zosyn day 2 will stop IV fluids today (3) Type 2 diabetes mellitus: Status: Acute Assessment and plan: A1C 8.03 Jul 2022 continue diabetic diet with blood sugar checks ac/hs with coverage. anticipate hyperglycemia in setting of IV steroids. will continue lantus at home dosing for now. (4) Hypertension: Status: Chronic Assessment and plan: poorly controlled, will resume lisinopril now kidney function improving. continue amlodipine monitor and adjust as needed (5) Acute kidney injury: Status: Acute Assessment and plan: likely d/t dehydration in setting of sepsis. improved this am will stop IV fluids later today. avoid nephrotoxic drugs and continue to closely monitor. continue with IV hydration for now, will stop this afternoon if taking good po discussed with Dr Zimmerman Exam Const General: comfortable and no acute distress Orientation: confused (at baseline) Limitations: altered mental status HENKS Head: normal to inspection and normocephalic Mouth: oral mucosae normal Eyes General: appearance normal, both eyes and all related structures Neck Neck: normal visual inspection Chest Chest: normal inspection of the chest Resp Effort & Inspection: normal respiratory effort Auscultation: diminished lung sounds and no rhonchi Cardio Rate: regular rate GI Inspection: normal to inspection Palpation: soft, no guarding, no hernias and nontender Percussion: normal to percussion Skin Lesions: lesion noted (coccyx, thighs ) Rashes: rashes noted (redness to right forearm, warm to touch, diffuse redness, area marked. ) Neuro General: patient alert, patient awake and no focal motor deficits Objective Last Vital Signs Temp 37.2 C 08/02/22 07:20 Pulse 100 H 08/02/22 07:20 Resp 24 08/02/22 07:20 BP 190/83 H 08/02/22 07:20 Pulse Ox 93 08/02/22 07:20 Laboratory Results - last 24 hr 08/01/22 08/01/22 08/01/22 10:51 11:03 11:03 WBC RBC Hgb Hct MCV MCH MCHC RDW Plt Count MPV Immature Gran % Neutrophils % Lymphocytes % Monocytes % Eosinophils % Basophils % Nucleated RBC % Absolute Neutrophils Absolute Lymphocytes Absolute Monocytes Absolute Eosinophils Absolute Basophils VBG pH VBG pCO2 VBG pO2 VBG HCO3 VBG Total CO2 VBG O2 Saturation VBG Base Excess VBG Lactate Sodium 135 L Potassium 4.2 Chloride 101 Carbon Dioxide 27.3 Anion Gap 6.7 BUN 25 H Creatinine 1.5 H Est GFR (CKD-EPI 2020) 48.55 Glucose 142 H Calcium 9.0 Total Bilirubin 0.7 AST 60 H ALT 71 H Alkaline Phosphatase 116 Troponin I < 50 C-Reactive Protein 4.03 H NT-Pro-B Natriuret Pep 727 H Total Protein 7.6 Albumin 2.8 L Procalcitonin 3.2 Urine Color Urine Clarity Urine pH Ur Specific [place] Urine Protein Urine Ketones Urine Blood Urine Nitrite Urine Bilirubin Urine Urobilinogen Ur Leukocyte Esterase Urine RBC Urine WBC Ur Epithelial Cells Urine Crystals Urine Bacteria Urine Casts Urine Mucus Ur Culture Indicated? Urine Glucose COVID-19 Source Not Applicable SARS-CoV-2 (PCR) Negative Influenza Type A (PCR) Negative Influenza Type B (PCR) Negative RSV (PCR) Negative 08/01/22 08/01/22 08/01/22 11:03 11:03 11:03 WBC 13.29 H RBC 4.61 Hgb 12.3 L Hct 38.0 L MCV 82 MCH 26.7 L MCHC 32.4 RDW 15.1 H Plt Count 211 MPV 10.7 Immature Gran % 0.6 Neutrophils % 83.7 Lymphocytes % 6.0 Monocytes % 9.5 Eosinophils % 0.0 Basophils % 0.2 Nucleated RBC % 0.0 Absolute Neutrophils 11.12 H Absolute Lymphocytes 0.80 L Absolute Monocytes 1.26 H Absolute Eosinophils 0.00 Absolute Basophils 0.03 VBG pH VBG pCO2 VBG pO2 VBG HCO3 VBG Total CO2 VBG O2 Saturation VBG Base Excess VBG Lactate 2.1 H Sodium Cancelled Potassium Cancelled Chloride Cancelled Carbon Dioxide Cancelled Anion Gap Cancelled BUN Cancelled Creatinine Cancelled Est GFR (CKD-EPI 2020) Cancelled Glucose Cancelled Calcium Cancelled Total Bilirubin Cancelled AST Cancelled ALT Cancelled Alkaline Phosphatase Cancelled Troponin I C-Reactive Protein Cancelled NT-Pro-B Natriuret Pep Total Protein Cancelled Albumin Cancelled Procalcitonin Urine Color Urine Clarity Urine pH Ur Specific [place] Urine Protein Urine Ketones Urine Blood Urine Nitrite Urine Bilirubin Urine Urobilinogen Ur Leukocyte Esterase Urine RBC Urine WBC Ur Epithelial Cells Urine Crystals Urine Bacteria Urine Casts Urine Mucus Ur Culture Indicated? Urine Glucose COVID-19 Source SARS-CoV-2 (PCR) Influenza Type A (PCR) Influenza Type B (PCR) RSV (PCR) 08/01/22 08/01/22 08/01/22 12:36 13:09 17:58 WBC RBC Hgb Hct MCV MCH MCHC RDW Plt Count MPV Immature Gran % Neutrophils % Lymphocytes % Monocytes % Eosinophils % Basophils % Nucleated RBC % Absolute Neutrophils Absolute Lymphocytes Absolute Monocytes Absolute Eosinophils Absolute Basophils VBG pH 7.42 H VBG pCO2 42 VBG pO2 30 VBG HCO3 28 VBG Total CO2 25 VBG O2 Saturation 58 VBG Base Excess 3 VBG Lactate 1.7 H Sodium Potassium Chloride Carbon Dioxide Anion Gap BUN Creatinine Est GFR (CKD-EPI 2020) Glucose Calcium Total Bilirubin AST ALT Alkaline Phosphatase Troponin I C-Reactive Protein NT-Pro-B Natriuret Pep Total Protein Albumin Procalcitonin Urine Color Yellow Urine Clarity Sl Cloudy Urine pH 7.0 Ur Specific [place] 1.010 Urine Protein 100 H Urine Ketones Negative Urine Blood Small H Urine Nitrite Negative Urine Bilirubin Negative Urine Urobilinogen 0.2 Ur Leukocyte Esterase Moderate H Urine RBC 10-20 H Urine WBC 20-50 H Ur Epithelial Cells Rare Urine Crystals Negative Urine Bacteria Moderate Urine Casts Negative Urine Mucus Negative Ur Culture Indicated? Yes Urine Glucose Negative COVID-19 Source SARS-CoV-2 (PCR) Influenza Type A (PCR) Influenza Type B (PCR) RSV (PCR) 08/02/22 08/02/22 06:20 06:20 WBC 8.05 RBC 4.65 Hgb 12.2 L Hct 38.4 L MCV 83 MCH 26.2 L MCHC 31.8 L RDW 15.1 H Plt Count 192 MPV 11.2 H Immature Gran % 0.4 Neutrophils % 79.4 Lymphocytes % 8.4 Monocytes % 11.7 Eosinophils % 0.0 Basophils % 0.1 Nucleated RBC % 0.0 Absolute Neutrophils 6.39 Absolute Lymphocytes 0.68 L Absolute Monocytes 0.94 H Absolute Eosinophils 0.00 Absolute Basophils 0.01 VBG pH VBG pCO2 VBG pO2 VBG HCO3 VBG Total CO2 VBG O2 Saturation VBG Base Excess VBG Lactate Sodium 136 Potassium 4.0 Chloride 101 Carbon Dioxide 26.0 Anion Gap 9.0 BUN 35 H Creatinine 1.3 Est GFR (CKD-EPI 2020) 57.65 Glucose 270 H Calcium 9.1 Total Bilirubin AST ALT Alkaline Phosphatase Troponin I C-Reactive Protein NT-Pro-B Natriuret Pep Total Protein Albumin Procalcitonin Urine Color Urine Clarity Urine pH Ur Specific [place] Urine Protein Urine Ketones Urine Blood Urine Nitrite Urine Bilirubin Urine Urobilinogen Ur Leukocyte Esterase Urine RBC Urine WBC Ur Epithelial Cells Urine Crystals Urine Bacteria Urine Casts Urine Mucus Ur Culture Indicated? Urine Glucose COVID-19 Source SARS-CoV-2 (PCR) Influenza Type A (PCR) Influenza Type B (PCR) RSV (PCR)
[2022-08-02 10:02] VITALS: O2SAT 94
--- NOTE | 2022-08-02 10:07 | INITIAL_ITS ---
- If Service Date Differs Date of service: 08/02/22 Time of Service: 10:07 Care Management Initial Assess REASON FOR HOSPITALIZATION:: UTI with Sepsis PAST MEDICAL HISTORY/PAST SURGICAL HISTORY:: All Active Problems (Updated 08/01/22 @ 14:25 by Stefani Quinn NP). Acute kidney injury (Acute). Type 2 diabetes mellitus (Acute). Urinary tract infection (Acute). Onychomycosis (Acute). Fracture dislocation of right shoulder joint (Acute). Depression (C hronic). Hypertension (Chronic). Diabetes mellitus (Chronic). Dislocated shoulder (Acute). Medical History (Updated 08/01/22 @ 14:25 by Stefani Quinn NP). Antisocial personality disorder. Bipolar disorder. Chronic kidney disease. Parkinson disease. Thrombocytopenia. Venous insufficiency PREVIOUS FUNCTIONAL STATUS/SOCIAL/FAMILY SUPPORTS:: Anjel is a 76 year old resident of [facility]. His next of kin is his sister Shannon, who resides in [place], [place]. CURRENT FUNCTIONAL STATUS:: Anjel was lying in bed when CM met with him. He does not communicate with this entry writer, other than expresses that he has pelvic pain or discomfort. CM notified his primary RN. ADVANCE DIRECTIVES:: No Adv. Directives on file at [facility] Has patient been provided with info about the portal/API?: Yes Did the patient sign up for the portal?: No CODE STATUS:: DNR/DNI (COLST Form on file) INSURANCE COVERAGE / FINANCIAL ISSUES:: Medicaid. Medicare CURRENT HOME/COMMUNITY SERVICES/EQUIPMENT:: Resides at a Group Home Facility ([facility]) PRIMARY CARE PHYSICIAN:: Jennifer Cool POTENTIAL DISCHARGE NEEDS:: Discharge plan of care, follow up with SNF provider. PATIENT/FAMILY EDUCATION NEEDS:: Review discharge instructions, limitations, medications and plan to follow up with community providers. Discuss ask me three and goals of self care. TRANSPORTATION:: Via [facility] PLAN:: Anticipate Anjel will discharge back to the [facility] when medically ready. He will transport via [facility] private vehicle vs. [facility] W/C van, depending on mobility. Anjel will follow up with community providers and discharge plan of care as prescribed.
[2022-08-02 10:48] VITALS: BP 136/71; PULSE 94; RESP 18; TEMP 36.8; O2SAT 94
[2022-08-02] MEDS: Lisinopril 20 MG TAB 40 MG PO (10:48)
[2022-08-02] MEDS: ARIPiprazole 5 MG TAB PO (10:48)
[2022-08-02] MEDS: Polyethylene Glycol 3350 17 GM PACKET PO (10:49)
--- NOTE | 2022-08-02 13:32 | WOUNDCONS ---
- If Service Date Differs Date of service: 08/01/22 Time of Service: 15:40 (Brief visit during arrival from the emergency room. ) Wound Initial Evaluation Narrative: Patient is a 76 year old male from the [facility] who has very limited physical ability. According to the notes from the [facility], patient is fully dependent in his ADL's other than he is able to feed himself. He transfers to the wheelchair with assistance and spends most of the day in the chair. Antisocial personality disorder Bipolar disorder Acute on Chronic kidney disease Parkinson's disease9 Thrombocytopenia Venous insufficiency with healed anterior venous ulcers bilaterally HTN Depression Type 2 DM I was asked to see the patient briefly upon arrival the unit to look at his skin. Patient's entire buttocks was deep purple in color but is blanchable. He has several areas of what appears to be device related (possibly a pereira catheter) old calloused scars with scabs in his medial thighs. He also has healed status venous ulcers on his anterior shins. A formal wound consult was not done this evening as the patient is very belligerent and is swearing at every nurse and sort line worker who enters the room. Is also hitting and kicking the nurses. Will defer an official consult at this time.
[2022-08-02] MEDS: Acetaminophen 500 MG TAB 1000 MG PO (17:07)
--- NOTE | 2022-08-02 20:24 | W.PM.PROGNOT ---
Date of Service Date of service: 08/02/22 Time of Service: 16:30 Assessment and Plan Assessment and plan (1) Leukocytosis: Status: Acute Assessment and plan: The resolution of his leukocytosis is certainly reassuring. Although the interval history and physical are a bit limited by his mental status, his abdominal exam is very reassuring, and he has no tenderness in the area of the appendix. I doubt this is acute appendicitis. Subjective Subjective Interval history since last seen: His white blood cell count has normalized from 13.3 down to 8.0. His mental status is still significantly limited, and he is not able to provide any interval history. Exam Const General: comfortable and no acute distress Orientation: confused Limitations: altered mental status GI Inspection: normal to inspection Palpation: soft, no guarding, no hernias and nontender Percussion: normal to percussion Objective Last Vital Signs Temp 98.2 F 08/02/22 10:48 Pulse 94 H 08/02/22 10:48 Resp 18 08/02/22 10:48 BP 136/71 08/02/22 10:48 Pulse Ox 94 08/02/22 10:48 Laboratory Results - last 24 hr 08/02/22 08/02/22 06:20 06:20 WBC 8.05 RBC 4.65 Hgb 12.2 L Hct 38.4 L MCV 83 MCH 26.2 L MCHC 31.8 L RDW 15.1 H Plt Count 192 MPV 11.2 H Immature Gran % 0.4 Neutrophils % 79.4 Lymphocytes % 8.4 Monocytes % 11.7 Eosinophils % 0.0 Basophils % 0.1 Nucleated RBC % 0.0 Absolute Neutrophils 6.39 Absolute Lymphocytes 0.68 L Absolute Monocytes 0.94 H Absolute Eosinophils 0.00 Absolute Basophils 0.01 Sodium 136 Potassium 4.0 Chloride 101 Carbon Dioxide 26.0 Anion Gap 9.0 BUN 35 H Creatinine 1.3 Est GFR (CKD-EPI 2020) 57.65 Glucose 270 H Calcium 9.1
[2022-08-02] MEDS: Magnesium Chloride 64 MG TABCR PO (20:29)
[2022-08-02] MEDS: Simvastatin 20 MG TAB PO (20:29)
[2022-08-02 20:35] VITALS: BP 144/79; PULSE 78; RESP 18; TEMP 36.6; O2SAT 94
[2022-08-03] MEDS: Lactated Ringers 1,000 ML 75 ML IV (00:38)
[2022-08-03] MEDS: PIPERACILLIN/TAZO 3.375 GM in Normal Saline 50 ML IVPB ×4 (02:38→19:41)
[2022-08-03] MEDS: Normal Saline Flush 10 ML SYR IVP ×2 (02:50→08:17)
[2022-08-03] MEDS: Acetaminophen 500 MG TAB 1000 MG PO ×2 (06:13→16:18)
--- NOTE | 2022-08-03 07:34 | CMPROGNOTE_ITS ---
- If Service Date Differs Date of service: 08/03/22 Time of Service: 07:34 Care Management Progress Note S/O: Anjel was lying in bed when CM met with him. He is awake, alert and communicates minimally. Anjel is being closely monitored and treated with IV ABX. Cultures are pending. Surgical is consulted. Pt has a wound consult ordered. CM will continue to follow. A: 76 year old female admitted to [facility] on 08/01/22 for UTI with Sepsis P: Anticipate Anjel will discharge back to the [facility] when medically ready. He will transport via [facility] private vehicle vs. [facility] W/C van, depending on mobility. Anjel will follow up with community providers and discharge plan of care as prescribed.
[2022-08-03 07:38] VITALS: BP 171/81; PULSE 86; RESP 18; TEMP 36.7; O2SAT 96
[2022-08-03] MEDS: ARIPiprazole 5 MG TAB PO (08:15)
[2022-08-03] MEDS: Lisinopril 20 MG TAB 40 MG PO (08:15)
[2022-08-03] MEDS: Finasteride 5 MG TAB PO (08:15)
[2022-08-03] MEDS: Venlafaxine 37.5 MG CAPCR 75 MG PO (08:15)
[2022-08-03] MEDS: Aspirin 81 MG CHEW PO (08:15)
[2022-08-03] MEDS: Glycopyrrolate 1 MG TAB 0.5 MG PO ×2 (08:15→19:42)
[2022-08-03] MEDS: Enoxaparin 40 MG/0.4 ML SYR SC (08:16)
[2022-08-03] MEDS: amLODIPine 10 MG TAB PO (08:16)
[2022-08-03] MEDS: Polyethylene Glycol 3350 17 GM PACKET PO (08:16)
[2022-08-03] MEDS: Docusate Sodium 100 MG CAP 200 MG PO (08:16)
[2022-08-03] MEDS: Magnesium Chloride 64 MG TABCR PO ×2 (08:16→19:41)
[2022-08-03] MEDS: Insulin Aspart 300 UNITS/3 ML PEN SC ×4 (08:34→20:58)
[2022-08-03] MEDS: Insulin Glargine 300 UNITS/3 ML PEN 65 UNITS SC (08:35)
[2022-08-03] MEDS: LORazepam 0.5 MG TAB PO ×2 (10:04→16:18)
--- NOTE | 2022-08-03 11:06 | WOUNDCONS_ITS ---
- If Service Date Differs Date of service: 08/03/22 Time of Service: 11:06 Wound Initial Evaluation Narrative: Patient is a 76 yom, who is a resident [facility]. He is here for a UTI, dehydration r/t sepsis, and an acute kidney injury. He also has a history of DM2 and antisocial personality disorder. On admission patient was foundd to have areas of concern on his skin. The admitting provider requested a wound consult to be performed. Initial attempts to speak to the patient were met with aggression and verbal resistance. Patient was approached this morning. He is a poor historian, but while talking to him, he does give verbal consent to have a wound consultation performed. He cannot sign consent but his verbal consent is witnessed by multiple staff. H&P, labs and other pertinent information was reviewed. Body Four View: 1 - DME pressure 2 - DME pressure 3 - DME pressure 4 - area of risk 5 - area of risk 6 - resolved star stasis ulcer 7 - resolved star stasis ulcer - Wound Left groin Wound Type: Pressure Ulcer Pressure Ulcer Stage: Other Wound General Appearance: Unapproximated, Other (calloused) Wound Bed Greatest Portion: Red (Granulation) Wound Bed Lesser Portion: Other (calloused) Wound Surrounding Tissue Appearance: Normal/Healthy Percent of Wound Bed Granulated/Red: 100 Wound Length: 8.5 cm Wound Width: 0.7 cm Wound Depth: 0.1 cm (less than) Wound Drainage Amount: None Wound Drainage Odor: None/Absent Wound Drainage Description: No drainage Wound Topical Solution/Irrigant: Other (soap and water) Wound Debridement Method: Mechanical Wound Debridement Result: Healthy Tissue Revealed Wound Debridement Amount of Tissue Removed: Minimal Additional Other Comments: Wound is from pressure from a catheter tube right groin Wound Type: Pressure Ulcer Pressure Ulcer Stage: Other (healing) Wound General Appearance: Unapproximated, Other (calloused) Wound Bed Greatest Portion: Red (Granulation) Wound Surrounding Tissue Appearance: Normal/Healthy Percent of Wound Bed Granulated/Red: 100 Wound Length: 8.4 cm Wound Width: 0.8 cm Wound Depth: 0.1 cm (less than) Wound Drainage Amount: None Wound Drainage Odor: None/Absent Wound Drainage Description: No drainage Wound Topical Solution/Irrigant: Other (soap and water) Wound Debridement Method: Mechanical Wound Debridement Result: Healthy Tissue Revealed Wound Debridement Amount of Tissue Removed: Minimal buttocks Wound Type: Other (risk area) Wound General Appearance: Healing Well Wound Bed Greatest Portion: Dusky Red Wound Drainage Amount: None Wound Drainage Odor: None/Absent Wound Drainage Description: No drainage Wound Topical Solution/Irrigant: Other (soap and water) Additional Other Comments: Area of risk from incontinence and sitting on the affected area for long periods of time Bilateral Lower Tib/Fib(lower leg) Wound Type: Statis Ulcer (resolved), Other Wound General Appearance: Healing Well Wound Bed Greatest Portion: Other (closed over) Wound Surrounding Tissue Appearance: Normal/Healthy Wound Drainage Amount: None Wound Drainage Odor: None/Absent Wound Drainage Description: No drainage Wound Topical Solution/Irrigant: Other (soap and water) - Circulation, Sensation, Motion Edema Degree: 1+ Peripheral Pulse Strength: Normal Capillary Refill: Less than 3 seconds Sensation Description: Other (unable to assess d/t patient ability to answer) Patient who [facility] a [facility]. He sits in a wheelchair for extended periods of time. This plus incontinence, and pressure exerted on the skin from the tubing of a condom cath, has led to skin breakdown. Goal should b e to offload prssure and provide good skin care as patient will allow and tolerate. - Photo Photo: - Nutrition Education Reviewed Nutrition Education: No Note: Patient not able to understand teaching - Recomendation Recomendation:: Groin. Wash twice daily , and after every episode of incontinence, with soap and water. Apply barrier cream. Position catheter tube to avoid pressure to the affected area. Buttocks. Clean with soap and water twice daily, and after episodes of incontinence. Apply Barrier cream. Offload pressure as patient will tolerate. Bilateral legs. Continue to use MAGGY hose, and elevate legs as patient will tolerate. Physcian/Nurse Practioner Notified: Yes (Dr. Zimmerman) Treatment Time - Time Total Time Spent with Patient: 30 minutes - Patient Will be Seen Weekly Treatment: daily
--- NOTE | 2022-08-03 12:03 | W.PM.PROGNOT ---
Date of Service Date of service: 08/03/22 Time of Service: 12:03 Assessment and Plan Assessment and plan (1) Rash and nonspecific skin eruption: Status: Acute Assessment and plan: well withing skin markings, continue to monitor for now. involves old IV site, no obvious evidence of infiltrate. elevate (2) Urinary tract infection: Status: Acute Assessment and plan: white count normalized urine culture growing e coli, sensitivities pending 1 bc tube on 08/01 growing gram neg nando, bc tube from 08/02 with no growth to date. awaiting ID and sensitivities. continue zosyn day 3 (3) Type 2 diabetes mellitus: Status: Acute Assessment and plan: A1C 8.03 Jul 2022 continue diabetic diet with blood sugar checks ac/hs with coverage. anticipate hyperglycemia in setting of IV steroids. will continue lantus at home dosing for now. (4) Hypertension: Status: Chronic Assessment and plan: lisinopril resumed now kidney function improving. continue amlodipine monitor and adjust as needed (5) Acute kidney injury: Status: Acute Assessment and plan: likely d/t dehydration in setting of sepsis. improving stable off IV fluids. avoid nephrotoxic drugs and continue to closely monitor. discussed with Dr Zimmerman Subjective Subjective Patient reports: no new complaints, tolerating liquids well, tolerating a regular diet and afebrile Exam Const General: comfortable and no acute distress Orientation: confused (at baseline) Limitations: altered mental status [facility] Head: normal to inspection and normocephalic Mouth: oral mucosae normal Eyes General: appearance normal, both eyes and all related structures Neck Neck: normal visual inspection Chest Chest: normal inspection of the chest Resp Effort & Inspection: normal respiratory effort Auscultation: diminished lung sounds and no rhonchi Cardio Rate: regular rate GI Inspection: normal to inspection Palpation: soft, no guarding, no hernias and nontender Percussion: normal to percussion Skin Lesions: lesion noted (coccyx, thighs ) Rashes: rashes noted (redness to right forearm, warm to touch, diffuse redness, area marked. ) Neuro General: patient alert, patient awake and no focal motor deficits Objective Last Vital Signs Temp 36.7 C 08/03/22 07:38 Pulse 86 08/03/22 07:38 Resp 18 08/03/22 07:38 BP 171/81 H 08/03/22 07:38 Pulse Ox 96 08/03/22 07:38
--- NOTE | 2022-08-03 14:18 | W.INDIABCONS ---
Date of service: 08/03/22 Time of Service: 14:18 Diabetes Inpatient Consult Reason for Visit: DM DESCRIPTION/ASSESSMENT: Anjel is a resistant of [facility] re[facility]. Admitted with respiratory failure. PMH: morbid obesity, Dm 2, HTN. Most recent A1C: 8.3% acceptable in view of comorbidities and age. Following diabetic diet with excellent intake. Not considered at nutritional risk. INTERVENTION: None provided as diabetes managed by SNF PLAN: Will be available prn. Time Spent in Nutritional Counseling and Treatment: 0
--- NOTE | 2022-08-03 15:32 | W.PM.PROGNOT ---
Date of Service Date of service: 08/03/22 Time of Service: 15:32 Assessment and Plan Assessment and plan (1) Leukocytosis: Status: Acute Assessment and plan: At this point I do not feel the source of infection is originating from the abdomen. I would treat him fully for 7 days with combination of Zosyn and or Augmentin. Most likely what ever antibiotics chosen for his UTI will also cover if this was an early appendicitis. No signs of any intra-abdominal sepsis at this time. We will reevaluate at your request (2) Urinary tract infection: Status: Acute Subjective Subjective Interval history since last seen: Patient cannot really give any history and refuses to answer questions. He says he is hungry and is belly does not hurt. He was in the middle of the nap and would like to be left alone. Exam Narrative Exam Narrative: Abdomen is soft. He has good bowel sounds. When I push on his abdomen in the right lower quadrant it does not elicit any pain response from him. He says he is fine Objective Last Vital Signs Temp 36.7 C 08/03/22 07:38 Pulse 86 08/03/22 07:38 Resp 18 08/03/22 07:38 BP 171/81 H 08/03/22 07:38 Pulse Ox 96 08/03/22 07:38
[2022-08-03 15:39] VITALS: BP 179/82; PULSE 81; RESP 24; TEMP 37; O2SAT 92
[2022-08-03] MEDS: Simvastatin 20 MG TAB PO (19:41)
[2022-08-04 02:03] VITALS: BP 188/76; PULSE 77; RESP 20; TEMP 37; O2SAT 97
[2022-08-04] MEDS: PIPERACILLIN/TAZO 3.375 GM in Normal Saline 50 ML IVPB ×2 (02:03→08:25)
[2022-08-04 08:16] VITALS: BP 188/105; PULSE 89; RESP 18; TEMP 37.2; O2SAT 95
[2022-08-04] MEDS: ARIPiprazole 5 MG TAB PO (08:19)
[2022-08-04] MEDS: Glycopyrrolate 1 MG TAB 0.5 MG PO ×2 (08:19→20:57)
[2022-08-04 08:20] LABS: Abs Immature Grans 0.02 10^3/uL (0.0-0.06); Absolute Basophil Count 0.04 10^3/uL (0.0-0.2); Absolute Eosinophil Count 0.14 10^3/uL (0.0-0.7); Absolute Lymphocyte Count 1.01 10^3/uL (1.2-3.4); Absolute Neutrophil Count 4.42 10^3/uL (1.2-6.7); Basophils % 0.6; Eosinophils % 2.2; HGB 12.9 g/dL (13.5-17.5); Immature Grans % 0.3; Lymphocytes % 15.7; MCHC 31.5 % (32.0-36.0); MCV 83 fL (80-95); Monocytes % 12.4; Neutrophils % 68.8; RBC 4.97 10^6/uL (4.36-5.78); RDW 15.1 % (11.8-14.1); RDW-SD 45.9 fL; WBC 6.43 10^3/uL (4.4-10.8)
[2022-08-04] MEDS: amLODIPine 10 MG TAB PO (08:20)
[2022-08-04] MEDS: Docusate Sodium 100 MG CAP 200 MG PO (08:20)
[2022-08-04] MEDS: Magnesium Chloride 64 MG TABCR PO ×2 (08:20→20:57)
[2022-08-04] MEDS: Aspirin 81 MG CHEW PO (08:20)
[2022-08-04] MEDS: Finasteride 5 MG TAB PO (08:20)
[2022-08-04] MEDS: Lisinopril 20 MG TAB 40 MG PO (08:20)
[2022-08-04] MEDS: Polyethylene Glycol 3350 17 GM PACKET PO (08:21)
[2022-08-04] MEDS: Venlafaxine 37.5 MG CAPCR 75 MG PO (08:21)
[2022-08-04] MEDS: Enoxaparin 40 MG/0.4 ML SYR SC (08:21)
[2022-08-04] MEDS: Insulin Aspart 300 UNITS/3 ML PEN SC ×3 (08:22→22:44)
[2022-08-04] MEDS: Insulin Glargine 300 UNITS/3 ML PEN 65 UNITS SC (08:24)
[2022-08-04] MEDS: Normal Saline Flush 10 ML SYR IVP ×3 (08:24→20:56)
[2022-08-04 08:38] LABS: ALT 54 U/L (16-63); AST 53 U/L (15-37); Albumin 2.8 g/dL (3.4-5.0); Alkaline Phosphatase 95 U/L (46-116); Anion Gap 11.7 mmol/L (3-11); BUN 23 mg/dL (7-18); Bilirubin, Total 0.4 mg/dL (0.2-1.0); CO2 23.3 mmol/L (21.0-32.0); CREATININE 1.2 mg/dL (0.70-1.30); Calcium 9.1 mg/dL (8.5-10.1); Chloride 103 mmol/L (98-107); Estimated GFR 63.46 (mL/min/1.73m2); Glucose 224 mg/dL (74-106); Sodium 138 mmol/L (136-145); Total Protein 8.1 g/dL (6.4-8.2)
[2022-08-04 08:40] LABS: Diff Comment Diff Reviewed; RBC Morphology Normal
--- NOTE | 2022-08-04 10:06 | PDOC.CMPRO ---
- If Service Date Differs Date of service: 08/04/22 Time of Service: 10:06 Care Management Progress Note S/O: Anjel was lying in bed when CM met with him. He is awake, alert and communicates minimally. Anjel is being closely monitored and treated with IV ABX. Surgical is consulted. Dr. Bernal recommends treatment with combination Zosyn and or Augmentin X 7 days. CM will continue to follow. A: 76 year old female admitted to [facility] on 08/01/22 for UTI with Sepsis P: Anticipate Anjel will discharge back to the [facility] when medically ready via EMS. Anjel will follow up with facility providers and discharge plan of care as prescribed.
[2022-08-04] MEDS: IMIPENEM/CILASTATIN 500 MG in Normal Saline 100 ML 200 MG IVPB ×2 (15:02→21:02)
[2022-08-04 19:25] VITALS: BP 160/78; PULSE 104; RESP 19; TEMP 38.4; O2SAT 94
[2022-08-04 20:44] LABS: COVID-19 PCR Negative (Negative); Influenza A PCR Negative (Negative); Influenza B PCR Negative (Negative); RSV PCR Negative (Negative)
[2022-08-04 20:47] LABS: Source Nasopharynx
[2022-08-04] MEDS: Simvastatin 20 MG TAB PO (20:56)
[2022-08-04] MEDS: LORazepam 0.5 MG TAB PO (20:56)
[2022-08-04 21:03] VITALS: TEMP 38.4
[2022-08-04] MEDS: Acetaminophen 500 MG TAB 1000 MG PO (21:03)
--- NOTE | 2022-08-04 23:18 | PGE_ITS ---
Date of Service Date of service: 08/04/22 Time of Service: 23:18 Assessment and Plan Assessment and plan (1) Rash and nonspecific skin eruption: Status: Acute Assessment and plan: skin markings, continue to monitor for now. involves old IV site, no obvious evidence of infiltrate. elevate (2) Urinary tract infection: Status: Acute Assessment and plan: white count normalized urine culture growing e coli, sensitivities pending 1 bc tube on 08/01 growing gram neg nando, bc tube from 08/02 with no growth to date. awaiting ID and sensitivities. continue zosyn day 4 (3) Type 2 diabetes mellitus: Status: Acute Assessment and plan: A1C 8.03 Jul 2022 continue diabetic diet with blood sugar checks ac/hs with coverage. anticipate hyperglycemia in setting of IV steroids. will continue lantus home dosing for now. (4) Hypertension: Status: Chronic Assessment and plan: lisinopril resumed now kidney function improving. continue amlodipine monitor and adjust as needed (5) Acute kidney injury: Status: Acute Assessment and plan: likely d/t dehydration in setting of sepsis. improving stable off IV fluids. avoid nephrotoxic drugs and continue to closely monitor. discussed with Dr Zimmerman Subjective Subjective Patient reports: no new complaints, feels better, tolerating a regular diet, voiding w/o difficulty, bowel movement and afebrile; denies diarrhea, nausea or vomiting Exam Const General: comfortable and no acute distress Orientation: confused (at baseline) Limitations: altered mental status [facility] Head: normal to inspection and normocephalic Mouth: oral mucosae normal Eyes General: appearance normal, both eyes and all related structures Neck Neck: normal visual inspection Chest Chest: normal inspection of the chest Resp Effort & Inspection: normal respiratory effort Auscultation: diminished lung sounds and no rhonchi Cardio Rate: regular rate GI Inspection: normal to inspection Palpation: soft, no guarding, no hernias and nontender Percussion: normal to percussion Skin Lesions: lesion noted (coccyx, thighs ) Rashes: rashes noted (redness to right forearm, warm to touch, diffuse redness, area marked. ) Neuro General: patient alert, patient awake and no focal motor deficits Objective Last Vital Signs Temp 38.4 C H 08/04/22 21:03 Pulse 104 H 08/04/22 19:25 Resp 19 08/04/22 19:25 BP 160/78 H 08/04/22 19:25 Pulse Ox 94 08/04/22 19:25 Laboratory Results - last 24 hr 08/04/22 08/04/22 08/04/22 07:25 07:25 19:40 WBC 6.43 RBC 4.97 Hgb 12.9 L Hct 41.0 MCV 83 MCH 26.0 L MCHC 31.5 L RDW 15.1 H Plt Count MPV Immature Gran % 0.3 Neutrophils % 68.8 Lymphocytes % 15.7 Monocytes % 12.4 Eosinophils % 2.2 Basophils % 0.6 Nucleated RBC % 0.0 Absolute Neutrophils 4.42 Absolute Lymphocytes 1.01 L Absolute Monocytes 0.80 Absolute Eosinophils 0.14 Absolute Basophils 0.04 RBC Morphology Normal Sodium 138 Potassium 4.0 Chloride 103 Carbon Dioxide 23.3 Anion Gap 11.7 H BUN 23 H Creatinine 1.2 Est GFR (CKD-EPI 2020) 63.46 Glucose 224 H Calcium 9.1 Total Bilirubin 0.4 AST 53 H ALT 54 Alkaline Phosphatase 95 Total Protein 8.1 Albumin 2.8 L COVID-19 Source Nasopharynx SARS-CoV-2 (PCR) Negative Influenza Type A (PCR) Negative Influenza Type B (PCR) Negative RSV (PCR) Negative Reviewed Pertinent PMH: Yes
[2022-08-04 23:33] VITALS: BP 164/83; PULSE 89; RESP 18; TEMP 37.4; O2SAT 92
--- NOTE | 2022-08-05 | DI.RAD_ITS ---
Exam(s) XR PORTABLE CHEST AP EXAM: XR PORTABLE CHEST AP CLINICAL HISTORY: fever. TECHNIQUE: 2D digital imaging was performed. COMPARISON: CR XR PORTABLE CHEST AP from 08/01/2022 FINDINGS: Single AP portable view. Heart size is upper normal. The mediastinum is not widened. Increased interstitial markings are again noted in both lungs. No confluent infiltrates. No pleural effusions. No pulmonary edema. IMPRESSION: Diffuse bilateral interstitial increased markings. No discrete focal consolidation. No obvious pleu ral effusions. DATA REPOSITORY: RADIATION DOSE DELIVERED:
[2022-08-05] MEDS: IMIPENEM/CILASTATIN 500 MG in Normal Saline 100 ML 200 MG IVPB ×4 (01:58→21:04)
[2022-08-05 06:54] LABS: Abs Immature Grans 0.02 10^3/uL (0.0-0.06); Absolute Basophil Count 0.04 10^3/uL (0.0-0.2); Absolute Eosinophil Count 0.18 10^3/uL (0.0-0.7); Absolute Lymphocyte Count 1.41 10^3/uL (1.2-3.4); Absolute Monocyte Count 0.99 10^3/uL (0.1-0.8); Absolute Neutrophil Count 4.26 10^3/uL (1.2-6.7); Basophils % 0.6; Eosinophils % 2.6; HCT 40.2 % (40.0-50.0); HGB 12.4 g/dL (13.5-17.5); Immature Grans % 0.3; Lymphocytes % 20.4; MCH 25.8 pg (27.0-33.0); MCHC 30.8 % (32.0-36.0); MCV 84 fL (80-95); MPV 10.7 fL (8.0-11.0); Monocytes % 14.3; Neutrophils % 61.8; Platelet Count 203 10^3/uL (130-400); RBC 4.81 10^6/uL (4.36-5.78); RDW 15.2 % (11.8-14.1); RDW-SD 46.5 fL
[2022-08-05 07:27] LABS: Anion Gap 8.5 mmol/L (3-11); BUN 25 mg/dL (7-18); CO2 24.5 mmol/L (21.0-32.0); CREATININE 1.1 mg/dL (0.70-1.30); Calcium 8.8 mg/dL (8.5-10.1); Chloride 106 mmol/L (98-107); Estimated GFR 70.44 (mL/min/1.73m2); Glucose 196 mg/dL (74-106); Magnesium 1.7 mg/dL (1.8-2.4); Potassium 4.1 mmol/L (3.5-5.1); Sodium 139 mmol/L (136-145)
[2022-08-05 08:15] VITALS: BP 167/84; PULSE 87; RESP 19; TEMP 36.9; O2SAT 96
[2022-08-05] MEDS: ARIPiprazole 5 MG TAB PO (08:19)
[2022-08-05] MEDS: Venlafaxine 37.5 MG CAPCR 75 MG PO (08:20)
[2022-08-05] MEDS: amLODIPine 10 MG TAB PO (08:20)
[2022-08-05] MEDS: Finasteride 5 MG TAB PO (08:20)
[2022-08-05] MEDS: Lisinopril 20 MG TAB 40 MG PO (08:20)
[2022-08-05] MEDS: Docusate Sodium 100 MG CAP 200 MG PO (08:20)
[2022-08-05] MEDS: Aspirin 81 MG CHEW PO (08:20)
[2022-08-05] MEDS: Polyethylene Glycol 3350 17 GM PACKET PO (08:21)
[2022-08-05] MEDS: Normal Saline Flush 10 ML SYR IVP ×3 (08:21→21:04)
[2022-08-05] MEDS: Enoxaparin 40 MG/0.4 ML SYR SC (08:21)
[2022-08-05] MEDS: Insulin Aspart 300 UNITS/3 ML PEN SC ×4 (08:23→21:02)
[2022-08-05] MEDS: Glycopyrrolate 1 MG TAB 0.5 MG PO ×2 (08:23→21:01)
[2022-08-05] MEDS: Magnesium Chloride 64 MG TABCR PO ×3 (08:25→21:01)
[2022-08-05] MEDS: Insulin Glargine 300 UNITS/3 ML PEN 65 UNITS SC (08:37)
--- NOTE | 2022-08-05 09:49 | DI.VRAD_ITS ---
PROCEDURE INFORMATION: Exam: XR Chest Exam date and time: 08/05/2022 6:31 AM Age: 76 years old Clinical indication: Fever TECHNIQUE: Imaging protocol: Radiologic exam of the chest. Views: 1 view. COMPARISON: CT CHEST/ABD/PEL W 08/01/2022 12:03 PM FINDINGS: Lungs: Diffuse interstitial prominence, as seen on previous CT. No focal consolidation. Pleural spaces: Unremarkable. No pleural effusion. No pneumothorax. Heart/Mediastinum: Unremarkable. No cardiomegaly. Bones/joints: Unremarkable. IMPRESSION: Diffuse interstitial prominence, as seen on previous CT. No focal consolidation. Dictated and Authenticated by: Yenifer Menchaca MD. Ordering:JOSEFA Brooks MD
[2022-08-05 15:38] VITALS: BP 181/80; PULSE 70; RESP 18; TEMP 36.4; O2SAT 94
--- NOTE | 2022-08-05 18:20 | W.PM.PROGNOT ---
Date of Service Date of service: 08/05/22 Time of Service: 14:00 Assessment and Plan Assessment and plan (1) Rash and nonspecific skin eruption: Status: Acute Assessment and plan: skin markings, continue to monitor for now. involves old IV site, no obvious evidence of infiltrate. elevate (2) Urinary tract infection: Status: Acute Assessment and plan: white count normalized urine culture growing e coli, sensitivities pending BC no growth in 24h MRSA swab negative Urine cx -E coli sensitive to zosyn - continue day 5 (3) Type 2 diabetes mellitus: Status: Acute Assessment and plan: A1C 8.03 Jul 2022 continue diabetic diet with blood sugar checks ac/hs with coverage. anticipate hyperglycemia in setting of IV steroids. will continue lantus home dosing for now. (4) Hypertension: Status: Chronic Assessment and plan: lisinopril resumed now kidney function improving. continue amlodipine monitor and adjust as needed (5) Acute kidney injury: Status: Acute Assessment and plan: likely d/t dehydration in setting of sepsis. improving stable off IV fluids. avoid nephrotoxic drugs and continue to closely monitor. discussed with Dr Zimmerman Subjective Subjective Patient reports: no new complaints Exam Const General: comfortable and no acute distress Orientation: confused (at baseline) Limitations: altered mental status [facility] Head: normal to inspection and normocephalic Mouth: oral mucosae normal Eyes General: appearance normal, both eyes and all related structures Neck Neck: normal visual inspection Chest Chest: normal inspection of the chest Resp Effort & Inspection: normal respiratory effort Auscultation: diminished lung sounds and no rhonchi Cardio Rate: regular rate GI Inspection: normal to inspection Palpation: soft, no guarding, no hernias and nontender Percussion: normal to percussion Skin Lesions: lesion noted (coccyx, thighs ) Rashes: rashes noted (redness to right forearm, warm to touch, diffuse redness, area marked. ) Neuro General: patient alert, patient awake and no focal motor deficits Objective Last Vital Signs Temp 36.4 C L 08/05/22 15:38 Pulse 70 08/05/22 15:38 Resp 18 08/05/22 15:38 BP 181/80 H 08/05/22 15:38 Pulse Ox 94 08/05/22 15:38 Laboratory Results - last 24 hr 08/04/22 08/05/22 08/05/22 19:40 05:49 05:49 WBC 6.90 RBC 4.81 Hgb 12.4 L Hct 40.2 MCV 84 MCH 25.8 L MCHC 30.8 L RDW 15.2 H Plt Count 203 MPV 10.7 Immature Gran % 0.3 Neutrophils % 61.8 Lymphocytes % 20.4 Monocytes % 14.3 Eosinophils % 2.6 Basophils % 0.6 Nucleated RBC % 0.0 Absolute Neutrophils 4.26 Absolute Lymphocytes 1.41 Absolute Monocytes 0.99 H Absolute Eosinophils 0.18 Absolute Basophils 0.04 Sodium 139 Potassium 4.1 Chloride 106 Carbon Dioxide 24.5 Anion Gap 8.5 BUN 25 H Creatinine 1.1 Est GFR (CKD-EPI 2020) 70.44 Glucose 196 H Calcium 8.8 Magnesium 1.7 L COVID-19 Source Nasopharynx SARS-CoV-2 (PCR) Negative Influenza Type A (PCR) Negative Influenza Type B (PCR) Negative RSV (PCR) Negative
[2022-08-05] MEDS: Simvastatin 20 MG TAB PO (21:02)
[2022-08-05 22:34] VITALS: BP 172/74; PULSE 68; RESP 18; TEMP 37.3; O2SAT 93
[2022-08-05 22:39] VITALS: BP 130/77; PULSE 89; RESP 17; TEMP 36.8; O2SAT 94
[2022-08-06] MEDS: IMIPENEM/CILASTATIN 500 MG in Normal Saline 100 ML 200 MG IVPB ×4 (02:47→19:51)
[2022-08-06] MEDS: Normal Saline 500 ML 30 ML IV (02:48)
[2022-08-06 07:03] LABS: Abs Immature Grans 0.03 10^3/uL (0.0-0.06); Absolute Basophil Count 0.04 10^3/uL (0.0-0.2); Absolute Eosinophil Count 0.28 10^3/uL (0.0-0.7); Absolute Lymphocyte Count 1.28 10^3/uL (1.2-3.4); Absolute Neutrophil Count 4.39 10^3/uL (1.2-6.7); Basophils % 0.6; Eosinophils % 4.1; HCT 39.7 % (40.0-50.0); HGB 12.5 g/dL (13.5-17.5); Immature Grans % 0.4; Lymphocytes % 18.8; MCH 26.2 pg (27.0-33.0); MCHC 31.5 % (32.0-36.0); MCV 83 fL (80-95); MPV 10.5 fL (8.0-11.0); Monocytes % 11.7; Neutrophils % 64.4; Platelet Count 201 10^3/uL (130-400); RBC 4.78 10^6/uL (4.36-5.78); RDW-SD 45.7 fL; WBC 6.82 10^3/uL (4.4-10.8)
[2022-08-06 07:12] LABS: Anion Gap 8.5 mmol/L (3-11); BUN 23 mg/dL (7-18); C-Reactive Protein 1.72 mg/dL (0.0-0.3); CO2 24.5 mmol/L (21.0-32.0); CREATININE 1.1 mg/dL (0.70-1.30); Calcium 9.1 mg/dL (8.5-10.1); Chloride 106 mmol/L (98-107); Estimated GFR 70.44 (mL/min/1.73m2); Glucose 194 mg/dL (74-106); Magnesium 1.5 mg/dL (1.8-2.4); Potassium 4.5 mmol/L (3.5-5.1); Sodium 139 mmol/L (136-145)
[2022-08-06 08:35] VITALS: BP 198/102; PULSE 80; RESP 21; TEMP 37.3; O2SAT 95
[2022-08-06] MEDS: Glycopyrrolate 1 MG TAB 0.5 MG PO ×2 (08:45→19:52)
[2022-08-06] MEDS: Magnesium Chloride 64 MG TABCR PO ×3 (08:45→19:52)
[2022-08-06] MEDS: Polyethylene Glycol 3350 17 GM PACKET PO (08:45)
[2022-08-06] MEDS: ARIPiprazole 5 MG TAB PO (08:45)
[2022-08-06] MEDS: Aspirin 81 MG CHEW PO (08:45)
[2022-08-06] MEDS: Venlafaxine 37.5 MG CAPCR 75 MG PO (08:45)
[2022-08-06] MEDS: Docusate Sodium 100 MG CAP 200 MG PO (08:45)
[2022-08-06] MEDS: Enoxaparin 40 MG/0.4 ML SYR SC (08:46)
[2022-08-06] MEDS: amLODIPine 10 MG TAB PO (08:46)
[2022-08-06] MEDS: Normal Saline Flush 10 ML SYR IVP ×4 (08:46→19:51)
[2022-08-06] MEDS: Lisinopril 20 MG TAB 40 MG PO (08:46)
[2022-08-06] MEDS: Finasteride 5 MG TAB PO (08:46)
[2022-08-06] MEDS: Insulin Glargine 300 UNITS/3 ML PEN 65 UNITS SC (08:47)
[2022-08-06] MEDS: Insulin Aspart 300 UNITS/3 ML PEN SC ×4 (08:48→21:47)
[2022-08-06 14:40] VITALS: BP 168/79; PULSE 86; RESP 18; TEMP 37.1; O2SAT 94
[2022-08-06] MEDS: MAGNESIUM SULFATE 2 GM/50 ML BAG IVPB (16:13)
--- NOTE | 2022-08-06 18:58 | W.PM.PROGNOT ---
Date of Service Date of service: 08/06/22 Time of Service: 13:00 Assessment and Plan Assessment and plan (1) Rash and nonspecific skin eruption: Status: Acute Assessment and plan: skin markings, continue to monitor for now. involves old IV site, no obvious evidence of infiltrate. elevate (2) Urinary tract infection: Status: Acute Assessment and plan: white count normalized urine culture growing e coli, sensitive to imipenem - continue day 3 BC no growth in 24h MRSA swab negative (3) Type 2 diabetes mellitus: Status: Acute Assessment and plan: A1C 8.03 Jul 2022 continue diabetic diet with blood sugar checks ac/hs with coverage. Glucose 190's Added Lantus 15 units in the am anticipate hyperglycemia in setting of IV steroids. will continue lantus home dosing for now. (4) Hypertension: Status: Chronic Assessment and plan: lisinopril resumed now kidney function improving. continue amlodipine monitor and adjust as needed (5) Acute kidney injury: Status: Acute Assessment and plan: likely d/t dehydration in setting of sepsis. improving stable off IV fluids. avoid nephrotoxic drugs and continue to closely monitor. discussed with Dr Howard Subjective Subjective Patient reports: no new complaints Objective Last Vital Signs Temp 37.1 C 08/06/22 14:40 Pulse 86 08/06/22 14:40 Resp 18 08/06/22 14:40 BP 168/79 H 08/06/22 14:40 Pulse Ox 94 08/06/22 14:40 Laboratory Results - last 24 hr 08/06/22 08/06/22 06:15 06:15 WBC 6.82 RBC 4.78 Hgb 12.5 L Hct 39.7 L MCV 83 MCH 26.2 L MCHC 31.5 L RDW 15.0 H Plt Count 201 MPV 10.5 Immature Gran % 0.4 Neutrophils % 64.4 Lymphocytes % 18.8 Monocytes % 11.7 Eosinophils % 4.1 Basophils % 0.6 Nucleated RBC % 0.0 Absolute Neutrophils 4.39 Absolute Lymphocytes 1.28 Absolute Monocytes 0.80 Absolute Eosinophils 0.28 Absolute Basophils 0.04 Sodium 139 Potassium 4.5 Chloride 106 Carbon Dioxide 24.5 Anion Gap 8.5 BUN 23 H Creatinine 1.1 Est GFR (CKD-EPI 2020) 70.44 Glucose 194 H Calcium 9.1 Magnesium 1.5 L C-Reactive Protein 1.72 H
[2022-08-06] MEDS: Simvastatin 20 MG TAB PO (19:52)
[2022-08-06 20:25] VITALS: O2SAT 95
[2022-08-06] MEDS: Insulin Glargine 300 UNITS/3 ML PEN 15 UNITS SC (21:46)
[2022-08-06 23:00] VITALS: BP 165/82; PULSE 71; RESP 18; TEMP 37; O2SAT 95
[2022-08-07] MEDS: IMIPENEM/CILASTATIN 500 MG in Normal Saline 100 ML 200 MG IVPB (02:40)
[2022-08-07 06:39] LABS: Abs Immature Grans 0.04 10^3/uL (0.0-0.06); Absolute Basophil Count 0.03 10^3/uL (0.0-0.2); Absolute Eosinophil Count 0.31 10^3/uL (0.0-0.7); Absolute Lymphocyte Count 1.32 10^3/uL (1.2-3.4); Absolute Monocyte Count 0.81 10^3/uL (0.1-0.8); Absolute Neutrophil Count 4.92 10^3/uL (1.2-6.7); Basophils % 0.4; Eosinophils % 4.2; HCT 39.6 % (40.0-50.0); HGB 12.6 g/dL (13.5-17.5); Immature Grans % 0.5; Lymphocytes % 17.8; MCH 26.5 pg (27.0-33.0); MCHC 31.8 % (32.0-36.0); MCV 83 fL (80-95); MPV 10.6 fL (8.0-11.0); Monocytes % 10.9; Neutrophils % 66.2; Platelet Count 221 10^3/uL (130-400); RBC 4.75 10^6/uL (4.36-5.78); RDW 15.3 % (11.8-14.1); WBC 7.43 10^3/uL (4.4-10.8)
[2022-08-07 06:51] LABS: Anion Gap 10.5 mmol/L (3-11); BUN 24 mg/dL (7-18); CO2 22.5 mmol/L (21.0-32.0); CREATININE 1.2 mg/dL (0.70-1.30); Calcium 9.3 mg/dL (8.5-10.1); Chloride 107 mmol/L (98-107); Estimated GFR 63.46 (mL/min/1.73m2); Glucose 172 mg/dL (74-106); Potassium 4.5 mmol/L (3.5-5.1); Sodium 140 mmol/L (136-145)
[2022-08-07 07:03] LABS: C-Reactive Protein 1.07 mg/dL (0.0-0.3); Magnesium 1.9 mg/dL (1.8-2.4)
[2022-08-07 08:15] VITALS: BP 214/104; PULSE 99; RESP 22; TEMP 37; O2SAT 96
[2022-08-07] MEDS: Acetaminophen 500 MG TAB 1000 MG PO (08:21)
[2022-08-07] MEDS: Magnesium Chloride 64 MG TABCR PO (08:21)
[2022-08-07] MEDS: Venlafaxine 37.5 MG CAPCR 75 MG PO (08:21)
[2022-08-07] MEDS: Docusate Sodium 100 MG CAP 200 MG PO (08:21)
[2022-08-07] MEDS: Aspirin 81 MG CHEW PO (08:21)
[2022-08-07] MEDS: amLODIPine 10 MG TAB PO (08:22)
[2022-08-07] MEDS: Glycopyrrolate 1 MG TAB 0.5 MG PO (08:22)
[2022-08-07] MEDS: ARIPiprazole 5 MG TAB PO (08:22)
[2022-08-07] MEDS: Finasteride 5 MG TAB PO (08:22)
[2022-08-07] MEDS: Lisinopril 20 MG TAB 40 MG PO (08:22)
[2022-08-07] MEDS: Insulin Aspart 300 UNITS/3 ML PEN SC (08:23)
[2022-08-07] MEDS: Enoxaparin 40 MG/0.4 ML SYR SC (08:23)
[2022-08-07] MEDS: Polyethylene Glycol 3350 17 GM PACKET PO (08:23)
[2022-08-07] MEDS: Normal Saline Flush 10 ML SYR IVP (08:23)
[2022-08-07] MEDS: Insulin Glargine 300 UNITS/3 ML PEN 65 UNITS SC (08:24)
[2022-08-07 09:47] LABS: Source Nasal/Nares
[2022-08-07] MEDS: Ergocalciferol 50000 UNITS CAP PO (09:58)
[2022-08-07 10:01] VITALS: BP 180/90
[2022-08-07 10:26] LABS: COVID-19 PCR Negative (Negative)
--- NOTE | 2022-08-07 10:43 | W.PM.DS.N ---
Date of service: 08/07/22 Time of Service: 10:43 DS: Diagnosis Discharge Diagnosis (1) Rash and nonspecific skin eruption: Status: Resolved Asessment and Plan: Resolved (2) Urinary tract infection: Status: Resolved Asessment and Plan: Resolved (3) Type 2 diabetes mellitus: Status: Chronic Asessment and Plan: Chronic, controlled (4) Hypertension: Status: Chronic Asessment and Plan: Chronic - continued home meds; followup with PCP for change in meds, chronic SBP 160-200 (5) Acute kidney injury: Status: Resolved Asessment and Plan: BUN 24 Creat 1.2 Discharge Plan Disposition Patient Disposition: SNF (LEVEL 1) [facility] Condition: Serious Discharge Details Reason For Visit: UTI with Sepsis Admit Date/Time: 08/01/22 14:12 Admit Provider: Ashwin Zimmerman Attending Provider: Ashwin Zimmerman Primary Care Provider: Jennifer Cool Hospital Course Hospital Course: This 76-year-old male patient with history of onychomycosis, depression, diabetes, and hypertension presented to the [facility] emergency department with reports of alteration in mental status, fever T-max of 101, hypoxia, 88%.? Patient denied any current pain complaints. ?He was diagnosed with UTI and treated for 7 days with IV antibiotics. His lungs are clear and he has no complaints of shortness of breath, no increased work of breathing and can speak in full sentences. ?His labs are now baseline for him, he has no complaints and is afebrile. His antibiotic course is completed. ?He had a CT scan of the abdomen while in the emergency department that showed an inflamed appendix.? He was seen by surgery and did not have appendicitis. When he arrived to the hospital he had many pressure injuries and was evaluated by the academic support specialist.? They report Patient sits in a wheelchair for extended periods of time, and is incontinent, and the pressure exerted on the skin from the tubing of a condom catheter, led to skin breakdown.?Wound care state goal is to offload pressure and provide good skin care as patient will allow and tolerate.? Their orders below. He has no changes in his home medications. Patient is returning to the [facility] stable. Home Meds and New Rx's Prescriptions: Continued glycopyrrolate 1 mg tablet 0.5 mg PO BID venlafaxine 150 mg capsule,extended release 24hr 75 mg PO DAILY amlodipine 10 mg tablet 10 mg PO DAILY simvastatin 20 mg tablet 20 mg PO DAILY aspirin 81 mg Tablet,Chewable 81 mg PO DAILY hydrochlorothiazide 25 mg tablet 25 mg PO DAILY ergocalciferol (vitamin D2) [Vitamin D2] 1,250 mcg (50,000 unit) Capsule 50,000 unit PO QWEEK lisinopril 40 mg tablet 40 mg PO DAILY docusate sodium 100 mg Tablet 200 mg PO DAILY finasteride 5 mg tablet 5 mg PO DAILY insulin glargine [Basaglar KwikPen U-100 Insulin] 100 unit/mL (3 mL) insulin pen 65 unit SUBCUT DAILY insulin aspart U-100 [Novolog Flexpen U-100 Insulin] 100 unit/mL (3 mL) Insulin Pen 10 unit SUBCUT QAC Protocol: Insulin Infusion Condition: Hyperglycemia Protocol Text: a. Independent double checks of all calculations, solution preparations, and pump rates are required. b. Discontinue subcutaneous insulin and any oral anti-hyperglycemic agents while on insulin infusion. c. Use low sorbing tubing (Nitroglycerin tubing) and flush with 20ml insulin infusion solution. d. Inline filters should NOT be used. e. Change insulin infusion bag every 24 hours. Label Comments: per sliding scale Rx Instructions: 10 units subcutaneously with meals in addition to sliding scale hold if Blood sugar is < 100 acetaminophen 500 mg tablet 1,000 mg PO Q8H PRN (Reason: pain) Qty: 90 3RF polyethylene glycol 3350 [Miralax] 17 gram Powder In Packet 17 g PO DAILY cyanocobalamin (vitamin B-12) 1,000 mcg Tablet 1,000 mcg PO DAILY magnesium chloride 64 mg Tablet Extended Release 64 mg PO BID tacrolimus 0.03 % Ointment 1 applic TOPICAL DAILY Rx Instructions: apply to affected area and face daily albuterol sulfate 90 mcg/actuation HFA aerosol inhaler 2 inh INHALATION QID PRN (Reason: Wheezing) aripiprazole 5 mg tablet 5 mg PO 1XD Trulicity 1.5 mg/0.5 mL Pen Injector 1.5 mg SUBCUT QWEEK Rx Instructions: give every Sunday Discharge Instructions Instructions: Urinary Tract Infection in Men (ED) Stand Alone Forms: Nursing Discharge Form [facility]: [facility] [Outside] Activity:: Activity as Tolerated Equipment/Supplies:: No Equipment Needed Diet:: Carb Counting Discharge Orders Discharge Orders: Discharge Order (Routine); Ordered 08/07/22 Ordered By: Anaya Jovel DS: Summary Time Spent with Patient providing and/or coordinating discharge services: Greater than 30 minutes Status at Discharge Functional status at discharge: independent ambulation Overall status at discharge: patient is progressing back to baseline Mental Status: other Speech and Movement: slowed movement Mood: congruent mood and other Affect: indifferent Exam Psych Mental Status: other Speech and Movement: slowed movement Mood: congruent mood and other Affect: indifferent DS: Data Vitals/I&O Vitals and I&O: Vital Signs Temperature 37 C 08/07/22 08:15 Temperature Source Tympanic 08/07/22 08:15 Pulse 99 H 08/07/22 08:15 Pulse Rhythm Regular 08/07/22 08:20 Pulse 93 H 08/01/22 14:50 Respiratory Rate 22 08/07/22 08:15 Respiratory Effort Non-Labored 08/07/22 08:20 Respiratory Depth Normal 08/07/22 08:20 Respiratory Pattern Normal 08/07/22 08:20 Blood Pressure 180/90 H 08/07/22 10:01 Blood Pressure Mean 85 08/01/22 14:46 Pulse Oximetry 96 08/07/22 08:15 Oxygen Delivery Method Room Air 08/07/22 08:15 Oxygen Flow Rate 0 08/07/22 08:15 Fraction of Inspired Oxygen (FIO2) 28 08/01/22 14:46 Pain Level 0 08/05/22 22:39 Comment 08/07/22 08:15 Intake & Output 08/06/22 08/06/22 08/07/22 11:59 23:59 11:59 Intake Total 270 / 491 100 / 100 Output Total 400 / 400 Balance 270 / 491 -300 / -300 Intake: IV 210 / 431 100 / 100 Oral 60 / 60 Output: Urine 400 / 400 Other: Urine Color Yellow Yellow Straw Urine Appearance Clear Clear Urine Odor Comment no void at this time patient was heavily incont Stool Size Smear Moderate Stool Characteristics Soft Soft Brown Brown Voiding Methods Diaper Diaper Incontinent Incontinent Data Completed and Pending Labs on day of discharge: Labs from last 24 hours 08/07/22 08/07/22 08/07/22 09:40 06:00 06:00 WBC 7.43 RBC 4.75 Hgb 12.6 L Hct 39.6 L MCV 83 MCH 26.5 L MCHC 31.8 L RDW 15.3 H Plt Count 221 MPV 10.6 Immature Gran % 0.5 Neutrophils % 66.2 Lymphocytes % 17.8 Monocytes % 10.9 Eosinophils % 4.2 Basophils % 0.4 Nucleated RBC % 0.0 Absolute Neutrophils 4.92 Absolute Lymphocytes 1.32 Absolute Monocytes 0.81 H Absolute Eosinophils 0.31 Absolute Basophils 0.03 Sodium 140 Potassium 4.5 Chloride 107 Carbon Dioxide 22.5 Anion Gap 10.5 BUN 24 H Creatinine 1.2 Est GFR (CKD-EPI 2020) 63.46 Glucose 172 H Calcium 9.3 Magnesium C-Reactive Protein COVID-19 Source Nasal/Nares SARS-CoV-2 (PCR) Negative 08/07/22 06:00 WBC RBC Hgb Hct MCV MCH MCHC RDW Plt Count MPV Immature Gran % Neutrophils % Lymphocytes % Monocytes % Eosinophils % Basophils % Nucleated RBC % Absolute Neutrophils Absolute Lymphocytes Absolute Monocytes Absolute Eosinophils Absolute Basophils Sodium Potassium Chloride Carbon Dioxide Anion Gap BUN Creatinine Est GFR (CKD-EPI 2020) Glucose Calcium Magnesium 1.9 C-Reactive Protein 1.07 H COVID-19 Source SARS-CoV-2 (PCR) Preliminary micro results at discharge 08/04/22 20:55 Blood Culture - Preliminary Blood NO GROWTH 48 HOURS 08/04/22 20:55 Blood Culture - Preliminary Blood NO GROWTH 48 HOURS PFSH All Active Problems (Updated 08/07/22 @ 10:45 by Anaya Jovel NP) Leukocytosis (Acute) Acute respiratory failure (Acute) Leukocytosis (Acute) Type 2 diabetes mellitus (Chronic) Onychomycosis (Acute) Fracture dislocation of right shoulder joint (Acute) Depression (Chronic) Hypertension (Chronic) Diabetes mellitus (Chronic) Dislocated shoulder (Acute) Medical History (Updated 08/07/22 @ 10:45 by Anaya Jovel NP) Antisocial personality disorder Bipolar disorder Chronic kidney disease Parkinson disease Thrombocytopenia Venous insufficiency Social History Smoking/Tobacco Use Status: Former Tobacco Use Smoking risk assessment performed?: Yes Alcohol Intake: former Substance use type: does not use Current gender identity: male Additional Social history: [facility]
== END 2022-08-07 11:44 | disposition skilled nursing facility (03) | DRG 683 ==
LOC: ER 14:27 → MS 15:19
PROVIDERS: Internal Medicine; Nurse Practitioner Acute Care; Nurse Practitioner Family; Admitting Provider Internal Medicine; Emergency Provider Physician Assistant; PCP Family Medicine; Visit Provider Internal Medicine
DX: N17.9 Acute kidney failure, unspecified (principal); F31.89 Other bipolar disorder; N39.0 Urinary tract infection, site not specified; B96.20 Unspecified Escherichia coli [E. coli] as the cause of diseases classified elsewhere; E11.22 Type 2 diabetes mellitus with diabetic chronic kidney disease; R21 Rash and other nonspecific skin eruption; N18.9 Chronic kidney disease, unspecified; I12.9 Hypertensive chronic kidney disease with stage 1 through stage 4 chronic kidney disease, or unspecified chronic kidney disease; G20 Parkinson's disease; D69.6 Thrombocytopenia, unspecified; I87.2 Venous insufficiency (chronic) (peripheral); Z79.4 Long term (current) use of insulin; J44.9 Chronic obstructive pulmonary disease, unspecified; Z66 Do not resuscitate; K74.60 Unspecified cirrhosis of liver; E86.0 Dehydration; L89.329 Pressure ulcer of left buttock, unspecified stage; L89.319 Pressure ulcer of right buttock, unspecified stage; L89.899 Pressure ulcer of other site, unspecified stage
CPT/HCPCS: 36410; 36415; 74177; 80048; 80053; 82805; 84145; 87040; 87077; 87081; 87635; 87637; 93005; 94640; 96361; 96365; 96367; 96375; 99223; 99231; 99291; J1650; 70450; 71045; 71260; 81003; 81015; 83605; 83735; 83880; 84484; 85025; 85049; 86140; 87086; 87186; 93010; 94660; 99232; 99233; 99239; J0743; J1941; J2060; J2543; J2930; J7620

== ENCOUNTER 2022-08-15 16:06 | Outpatient (REF) | payer SELFPAY ==
[2022-08-15 16:47] LABS: Abs Immature Grans 0.02 10^3/uL (0.0-0.06); Absolute Basophil Count 0.04 10^3/uL (0.0-0.2); Absolute Eosinophil Count 0.23 10^3/uL (0.0-0.7); Absolute Lymphocyte Count 1.14 10^3/uL (1.2-3.4); Absolute Monocyte Count 0.81 10^3/uL (0.1-0.8); Absolute Neutrophil Count 4.73 10^3/uL (1.2-6.7); Basophils % 0.6; Eosinophils % 3.3; HCT 39.1 % (40.0-50.0); HGB 12.5 g/dL (13.5-17.5); Immature Grans % 0.3; Lymphocytes % 16.4; MCH 26.5 pg (27.0-33.0); MCV 83 fL (80-95); MPV 11.1 fL (8.0-11.0); Monocytes % 11.6; Neutrophils % 67.8; Platelet Count 247 10^3/uL (130-400); RBC 4.71 10^6/uL (4.36-5.78); RDW 15.1 % (11.8-14.1); RDW-SD 45.8 fL; WBC 6.97 10^3/uL (4.4-10.8)
[2022-08-15 17:06] LABS: ALT 95 U/L (16-63); AST 75 U/L (15-37); Albumin 3.2 g/dL (3.4-5.0); Alkaline Phosphatase 128 U/L (46-116); Anion Gap 9.3 mmol/L (3-11); BUN 20 mg/dL (7-18); Bilirubin, Total 0.4 mg/dL (0.2-1.0); CO2 25.7 mmol/L (21.0-32.0); CREATININE 1.1 mg/dL (0.70-1.30); Chloride 98 mmol/L (98-107); Estimated GFR 70.44 (mL/min/1.73m2); Glucose 355 mg/dL (74-106); Potassium 4.7 mmol/L (3.5-5.1); Sodium 133 mmol/L (136-145); Total Protein 7.6 g/dL (6.4-8.2)
[2022-08-16 18:52] LABS: PSA, Diagnostic <0.1 ng/mL (<=6.5)
[2022-08-17 04:59] LABS: Vitamin D 25 Total 29.9 ng/mL (30-100)
== END 2022-08-15 16:07 | disposition home or self-care (01) ==
LOC: LBN 16:06
PROVIDERS: PCP Family Medicine; Visit Provider Nurse Practitioner Gerontology
DX: E55.9 Vitamin D deficiency, unspecified (principal); A41.51 Sepsis due to Escherichia coli [E. coli]; N17.9 Acute kidney failure, unspecified; R68.89 Other general symptoms and signs
CPT/HCPCS: 80053; 82306; 84153; 85025

== ENCOUNTER 2022-08-22 18:16 | Outpatient (REF) | payer SELFPAY ==
[2022-08-22 19:29] LABS: Bilirubin Negative (Negative); Blood Trace-lysed (Negative); Clarity Cloudy (Clear); Glucose Negative (Negative); Ketones Negative (Negative); Leukocyte Esterase Trace (Negative); Nitrite Negative (Negative); Specific Gravity >= 1.030 (1.005-1.025); pH 6.5 (5-8)
[2022-08-22 19:43] LABS: Bacteria Many HPF (Negative); C & S Indicated? C&S Done As Ordered; Crystals Negative HPF (Negative); Epithelial Cells Rare HPF (Negative); Mucus Negative (Negative); WBC 20-50 HPF (0-5)
== END 2022-08-22 18:17 | disposition home or self-care (01) ==
LOC: LBN 18:16
PROVIDERS: PCP Family Medicine; Visit Provider Nurse Practitioner Gerontology
DX: A41.51 Sepsis due to Escherichia coli [E. coli] (principal); R68.89 Other general symptoms and signs; R82.998 Other abnormal findings in urine
CPT/HCPCS: 87077; 81003; 81015; 87086; 87186

== ENCOUNTER 2022-09-06 18:20 | Outpatient (REF) | payer SELFPAY ==
[2022-09-06 18:43] LABS: Abs Immature Grans 0.02 10^3/uL (0.0-0.06); Absolute Basophil Count 0.01 10^3/uL (0.0-0.2); Absolute Lymphocyte Count 0.63 10^3/uL (1.2-3.4); Absolute Monocyte Count 0.42 10^3/uL (0.1-0.8); Absolute Neutrophil Count 5.15 10^3/uL (1.2-6.7); Basophils % 0.2; HCT 36.7 % (40.0-50.0); HGB 11.8 g/dL (13.5-17.5); Immature Grans % 0.3; Lymphocytes % 10.1; MCH 26.3 pg (27.0-33.0); MCHC 32.2 % (32.0-36.0); MCV 82 fL (80-95); MPV 11.3 fL (8.0-11.0); Monocytes % 6.7; Neutrophils % 82.7; Platelet Count 239 10^3/uL (130-400); RBC 4.49 10^6/uL (4.36-5.78); RDW 15.1 % (11.8-14.1); RDW-SD 45.1 fL; WBC 6.23 10^3/uL (4.4-10.8)
[2022-09-06 19:08] LABS: ALT 75 U/L (16-63); AST 64 U/L (15-37); Albumin 3.3 g/dL (3.4-5.0); Alkaline Phosphatase 113 U/L (46-116); BUN 28 mg/dL (7-18); Bilirubin, Total 0.3 mg/dL (0.2-1.0); CREATININE 1.3 mg/dL (0.70-1.30); Calcium 8.8 mg/dL (8.5-10.1); Estimated GFR 57.65 (mL/min/1.73m2); Glucose 433 mg/dL (74-106); Total Protein 7.6 g/dL (6.4-8.2)
[2022-09-06 19:12] LABS: Chloride 98 mmol/L (98-107); Potassium 5.1 mmol/L (3.5-5.1); Sodium 132 mmol/L (136-145)
[2022-09-06 23:08] LABS: NT-proBNP 350 pg/mL (<300)
== END 2022-09-06 18:21 | disposition home or self-care (01) ==
LOC: LBN 18:20
PROVIDERS: PCP Family Medicine; Visit Provider Nurse Practitioner Gerontology
DX: E11.69 Type 2 diabetes mellitus with other specified complication (principal); I10 Essential (primary) hypertension; R06.2 Wheezing
CPT/HCPCS: 80053; 83880; 85025

== ENCOUNTER 2022-09-27 18:23 | Outpatient (REF) | payer SELFPAY ==
[2022-09-27 19:06] LABS: Bilirubin Negative (Negative); Blood Negative (Negative); Clarity Sl Cloudy (Clear); Glucose 100 mg/dL (Negative); Ketones Negative (Negative); Leukocyte Esterase Trace (Negative); Nitrite Negative (Negative); Specific Gravity 1.025 (1.005-1.025); Urobilinogen 0.2 EU/dL (Up TO 0.2)
[2022-09-27 19:13] LABS: Crystals Negative HPF (Negative); Epithelial Cells Few HPF (Negative); Mucus Negative (Negative); Other Cells Few Transitional (Negative); RBC 0-2 HPF (0-2); WBC >50 HPF (0-5)
[2022-09-27 19:14] LABS: Bacteria Few HPF (Negative); C & S Indicated? C&S Done As Ordered
== END 2022-09-27 18:24 | disposition home or self-care (01) ==
LOC: LBN 18:23
PROVIDERS: PCP Family Medicine; Visit Provider Nurse Practitioner Gerontology
DX: R68.89 Other general symptoms and signs (principal); E11.9 Type 2 diabetes mellitus without complications; E55.9 Vitamin D deficiency, unspecified; R82.998 Other abnormal findings in urine; R82.79 Other abnormal findings on microbiological examination of urine
CPT/HCPCS: 81003; 81015; 87086

== ENCOUNTER 2022-10-19 18:44 | Outpatient (REF) | payer MEDICARE, MEDICAID, SELFPAY ==
[2022-10-19 19:45] LABS: Bilirubin Negative (Negative); Blood Negative (Negative); Clarity Clear (Clear); Glucose Negative (Negative); Ketones Negative (Negative); Leukocyte Esterase Negative (Negative); Nitrite Negative (Negative); Urobilinogen 0.2 EU/dL (Up TO 0.2)
[2022-10-19 20:01] LABS: Bacteria Moderate HPF (Negative); C & S Indicated? C&S Done As Ordered; Casts Negative LPF (Negative); Crystals Negative HPF (Negative); Epithelial Cells Few HPF (Negative); Mucus Negative (Negative)
== END 2022-10-19 18:45 | disposition home or self-care (01) ==
LOC: LBN 18:44
PROVIDERS: PCP Family Medicine; Visit Provider Nurse Practitioner Gerontology
DX: A41.51 Sepsis due to Escherichia coli [E. coli] (principal)
CPT/HCPCS: 87077; 81003; 81015; 87086; 87186

== ENCOUNTER 2022-10-31 18:18 | Outpatient (REF) | payer MEDICARE, MEDICAID, SELFPAY ==
[2022-10-31 19:09] LABS: Abs Immature Grans 0.02 10^3/uL (0.0-0.06); Absolute Basophil Count 0.04 10^3/uL (0.0-0.2); Absolute Eosinophil Count 0.34 10^3/uL (0.0-0.7); Absolute Lymphocyte Count 0.77 10^3/uL (1.2-3.4); Absolute Monocyte Count 0.91 10^3/uL (0.1-0.8); Basophils % 0.7; Eosinophils % 6.2; HCT 35.9 % (40.0-50.0); HGB 11.5 g/dL (13.5-17.5); Immature Grans % 0.4; Lymphocytes % 14.1; MCH 25.6 pg (27.0-33.0); MCV 80 fL (80-95); MPV 10.6 fL (8.0-11.0); Monocytes % 16.6; Platelet Count 237 10^3/uL (130-400); RBC 4.49 10^6/uL (4.36-5.78); RDW 15.1 % (11.8-14.1); RDW-SD 44.2 fL; WBC 5.48 10^3/uL (4.4-10.8)
[2022-10-31 19:28] LABS: ALT 66 U/L (16-63); AST 51 U/L (15-37); Albumin 2.8 g/dL (3.4-5.0); Alkaline Phosphatase 185 U/L (46-116); Anion Gap 6.9 mmol/L (3-11); BUN 24 mg/dL (7-18); Bilirubin, Total 0.4 mg/dL (0.2-1.0); CO2 27.1 mmol/L (21.0-32.0); CREATININE 1.3 mg/dL (0.70-1.30); Calcium 9.2 mg/dL (8.5-10.1); Chloride 97 mmol/L (98-107); Estimated GFR 57.65 (mL/min/1.73m2); Glucose 327 mg/dL (74-106); NT-proBNP 319 pg/mL (<300); Potassium 4.8 mmol/L (3.5-5.1); Sodium 131 mmol/L (136-145); Total Protein 6.9 g/dL (6.4-8.2)
== END 2022-10-31 18:19 | disposition home or self-care (01) ==
LOC: LBN 18:18
PROVIDERS: PCP Family Medicine; Visit Provider Nurse Practitioner Gerontology
DX: F31.9 Bipolar disorder, unspecified (principal); Z79.899 Other long term (current) drug therapy; E11.9 Type 2 diabetes mellitus without complications; I10 Essential (primary) hypertension; R06.89 Other abnormalities of breathing
CPT/HCPCS: 80053; 83880; 85025

== ENCOUNTER 2022-11-07 19:57 | Outpatient (REF) | payer MEDICARE, MEDICAID, SELFPAY ==
[2022-11-07 20:23] LABS: Abs Immature Grans 0.02 10^3/uL (0.0-0.06); Absolute Basophil Count 0.03 10^3/uL (0.0-0.2); Absolute Eosinophil Count 0.29 10^3/uL (0.0-0.7); Absolute Lymphocyte Count 0.72 10^3/uL (1.2-3.4); Absolute Monocyte Count 0.84 10^3/uL (0.1-0.8); Absolute Neutrophil Count 3.35 10^3/uL (1.2-6.7); Basophils % 0.6; Eosinophils % 5.5; HCT 38.4 % (40.0-50.0); Immature Grans % 0.4; Lymphocytes % 13.7; MCH 25.2 pg (27.0-33.0); MCHC 31.3 % (32.0-36.0); MCV 81 fL (80-95); MPV 10.4 fL (8.0-11.0); Neutrophils % 63.8; Platelet Count 242 10^3/uL (130-400); RBC 4.76 10^6/uL (4.36-5.78); RDW 15.4 % (11.8-14.1); RDW-SD 45.2 fL; WBC 5.25 10^3/uL (4.4-10.8)
[2022-11-07 20:28] LABS: ALT 75 U/L (16-63); AST 73 U/L (15-37); Albumin 2.9 g/dL (3.4-5.0); Alkaline Phosphatase 165 U/L (46-116); BUN 24 mg/dL (7-18); Bilirubin, Total 0.4 mg/dL (0.2-1.0); CREATININE 1.2 mg/dL (0.70-1.30); Calcium 9.4 mg/dL (8.5-10.1); Chloride 96 mmol/L (98-107); Estimated GFR 63.46 (mL/min/1.73m2); Glucose 377 mg/dL (74-106); NT-proBNP 241 pg/mL (<300); Potassium 5.2 mmol/L (3.5-5.1); Sodium 129 mmol/L (136-145); Total Protein 7.3 g/dL (6.4-8.2)
== END 2022-11-07 19:58 | disposition home or self-care (01) ==
LOC: LBN 19:57
PROVIDERS: PCP Family Medicine; Visit Provider Nurse Practitioner Gerontology
DX: N17.9 Acute kidney failure, unspecified (principal); E78.49 Other hyperlipidemia; I51.9 Heart disease, unspecified; E11.9 Type 2 diabetes mellitus without complications; I10 Essential (primary) hypertension; R06.89 Other abnormalities of breathing
CPT/HCPCS: 80053; 83880; 85025

== ENCOUNTER 2022-11-10 12:27 | Outpatient (REF) | payer MEDICARE, MEDICAID, SELFPAY ==
[2022-11-10 13:23] LABS: ALT 77 U/L (16-63); AST 76 U/L (15-37); Alkaline Phosphatase 167 U/L (46-116); Anion Gap 9.2 mmol/L (3-11); BUN 23 mg/dL (7-18); Bilirubin, Total 0.7 mg/dL (0.2-1.0); CO2 24.8 mmol/L (21.0-32.0); CREATININE 1.1 mg/dL (0.70-1.30); Calcium 9.6 mg/dL (8.5-10.1); Chloride 98 mmol/L (98-107); Estimated GFR 70.44 (mL/min/1.73m2); Glucose 232 mg/dL (74-106); Potassium 5.1 mmol/L (3.5-5.1); Sodium 132 mmol/L (136-145); Total Protein 7.5 g/dL (6.4-8.2)
[2022-11-13 13:38] LABS: HCV RNA Qualitative Undetected (Undetected)
[2022-11-14 15:27] LABS: Hepatitis C Ab w Rflx HCV PCR Negative (Negative)
== END 2022-11-10 12:28 | disposition home or self-care (01) ==
LOC: LBN 12:27
PROVIDERS: PCP Family Medicine; Visit Provider Nurse Practitioner Gerontology
DX: N17.9 Acute kidney failure, unspecified (principal); I51.9 Heart disease, unspecified; J96.00 Acute respiratory failure, unspecified whether with hypoxia or hypercapnia; Z11.59 Encounter for screening for other viral diseases; I10 Essential (primary) hypertension; E11.9 Type 2 diabetes mellitus without complications
CPT/HCPCS: 80053; 86803; 87522

== ENCOUNTER 2022-11-13 19:17 | Outpatient (REF) | payer MEDICARE, MEDICAID, SELFPAY ==
[2022-11-13 20:08] LABS: ALT 56 U/L (16-63); AST 77 U/L (15-37); Alkaline Phosphatase 142 U/L (46-116); Anion Gap 10.7 mmol/L (3-11); BUN 33 mg/dL (7-18); Bilirubin, Total 0.4 mg/dL (0.2-1.0); CO2 24.3 mmol/L (21.0-32.0); CREATININE 1.5 mg/dL (0.70-1.30); Calcium 9.7 mg/dL (8.5-10.1); Chloride 99 mmol/L (98-107); Estimated GFR 48.55 (mL/min/1.73m2); Glucose 272 mg/dL (74-106); Potassium 4.8 mmol/L (3.5-5.1); Sodium 134 mmol/L (136-145); Total Protein 7.4 g/dL (6.4-8.2)
== END 2022-11-13 19:18 | disposition home or self-care (01) ==
LOC: LBN 19:17
PROVIDERS: PCP Family Medicine; Visit Provider Nurse Practitioner Gerontology
DX: I10 Essential (primary) hypertension (principal); E11.9 Type 2 diabetes mellitus without complications; R68.89 Other general symptoms and signs; N17.9 Acute kidney failure, unspecified
CPT/HCPCS: 80053

== ENCOUNTER 2022-11-20 18:33 | Outpatient (REF) | payer MEDICARE, MEDICAID, SELFPAY ==
[2022-11-20 18:54] LABS: Abs Immature Grans 0.02 10^3/uL (0.0-0.06); Absolute Basophil Count 0.04 10^3/uL (0.0-0.2); Absolute Eosinophil Count 0.24 10^3/uL (0.0-0.7); Absolute Lymphocyte Count 0.78 10^3/uL (1.2-3.4); Absolute Monocyte Count 1.01 10^3/uL (0.1-0.8); Absolute Neutrophil Count 4.52 10^3/uL (1.2-6.7); Basophils % 0.6; Eosinophils % 3.6; HCT 39.1 % (40.0-50.0); HGB 12.1 g/dL (13.5-17.5); Immature Grans % 0.3; Lymphocytes % 11.8; MCH 25.6 pg (27.0-33.0); MCHC 30.9 % (32.0-36.0); MCV 83 fL (80-95); MPV 11.2 fL (8.0-11.0); Monocytes % 15.3; Neutrophils % 68.4; Platelet Count 244 10^3/uL (130-400); RBC 4.73 10^6/uL (4.36-5.78); RDW 16.1 % (11.8-14.1); RDW-SD 48.4 fL; WBC 6.61 10^3/uL (4.4-10.8)
[2022-11-20 19:12] LABS: ALT 35 U/L (16-63); AST 69 U/L (15-37); Albumin 2.9 g/dL (3.4-5.0); Alkaline Phosphatase 113 U/L (46-116); Anion Gap 11.2 mmol/L (3-11); BUN 65 mg/dL (7-18); Bilirubin, Total 0.4 mg/dL (0.2-1.0); CO2 25.8 mmol/L (21.0-32.0); CREATININE 2.3 mg/dL (0.70-1.30); Calcium 10.2 mg/dL (8.5-10.1); Chloride 110 mmol/L (98-107); Estimated GFR 29.07 (mL/min/1.73m2); Glucose 180 mg/dL (74-106); Potassium 4.6 mmol/L (3.5-5.1); Sodium 147 mmol/L (136-145); Total Protein 7.4 g/dL (6.4-8.2)
[2022-11-20 19:18] LABS: Hemoglobin A1C 9.7 % (<5.7)
== END 2022-11-20 18:34 | disposition home or self-care (01) ==
LOC: LBN 18:33
PROVIDERS: PCP Family Medicine; Visit Provider Nurse Practitioner Gerontology
DX: I51.9 Heart disease, unspecified (principal); N17.9 Acute kidney failure, unspecified; R68.89 Other general symptoms and signs; E11.69 Type 2 diabetes mellitus with other specified complication; I10 Essential (primary) hypertension
CPT/HCPCS: 80053; 83036; 85025

== ENCOUNTER 2022-11-27 17:07 | Outpatient (REF) | payer MEDICARE, MEDICAID, SELFPAY ==
[2022-11-27 17:40] LABS: Abs Immature Grans 0.02 10^3/uL (0.0-0.06); Absolute Basophil Count 0.05 10^3/uL (0.0-0.2); Absolute Eosinophil Count 0.31 10^3/uL (0.0-0.7); Absolute Lymphocyte Count 0.89 10^3/uL (1.2-3.4); Absolute Neutrophil Count 4.47 10^3/uL (1.2-6.7); Basophils % 0.7; Eosinophils % 4.6; HCT 41.4 % (40.0-50.0); HGB 12.8 g/dL (13.5-17.5); Immature Grans % 0.3; Lymphocytes % 13.2; MCHC 30.9 % (32.0-36.0); MCV 81 fL (80-95); MPV 11.6 fL (8.0-11.0); Monocytes % 14.8; Neutrophils % 66.4; Platelet Count 241 10^3/uL (130-400); RBC 5.13 10^6/uL (4.36-5.78); RDW 16.2 % (11.8-14.1); RDW-SD 47.2 fL; WBC 6.74 10^3/uL (4.4-10.8)
[2022-11-27 17:58] LABS: ALT 53 U/L (16-63); AST 66 U/L (15-37); Albumin 3.3 g/dL (3.4-5.0); Alkaline Phosphatase 131 U/L (46-116); Anion Gap 12.5 mmol/L (3-11); Bilirubin, Total 0.4 mg/dL (0.2-1.0); CO2 21.5 mmol/L (21.0-32.0); CREATININE 2.6 mg/dL (0.70-1.30); Calcium 10.7 mg/dL (8.5-10.1); Chloride 109 mmol/L (98-107); Estimated GFR 25.09 (mL/min/1.73m2); Glucose 208 mg/dL (74-106); NT-proBNP 126 pg/mL (<300); Potassium 4.8 mmol/L (3.5-5.1); Sodium 143 mmol/L (136-145)
[2022-11-27 18:08] LABS: BUN 91 mg/dL (7-18)
== END 2022-11-27 17:08 | disposition home or self-care (01) ==
LOC: LBN 17:07
PROVIDERS: PCP Family Medicine; Visit Provider Nurse Practitioner Gerontology
DX: R68.89 Other general symptoms and signs; R53.83 Other fatigue
CPT/HCPCS: 80053; 83880; 85025

== ENCOUNTER 2022-11-29 16:13 | Outpatient (REF) | payer MEDICARE, MEDICAID, SELFPAY ==
[2022-11-29 17:11] LABS: Abs Immature Grans 0.03 10^3/uL (0.0-0.06); Absolute Basophil Count 0.03 10^3/uL (0.0-0.2); Absolute Eosinophil Count 0.22 10^3/uL (0.0-0.7); Absolute Lymphocyte Count 0.75 10^3/uL (1.2-3.4); Absolute Monocyte Count 1.02 10^3/uL (0.1-0.8); Absolute Neutrophil Count 6.28 10^3/uL (1.2-6.7); Basophils % 0.4; Eosinophils % 2.6; HCT 39.9 % (40.0-50.0); HGB 12.2 g/dL (13.5-17.5); Immature Grans % 0.4; MCH 25.3 pg (27.0-33.0); MCHC 30.6 % (32.0-36.0); MCV 83 fL (80-95); MPV 11.7 fL (8.0-11.0); Monocytes % 12.2; Neutrophils % 75.4; Platelet Count 200 10^3/uL (130-400); RBC 4.83 10^6/uL (4.36-5.78); RDW 16.9 % (11.8-14.1); RDW-SD 48.7 fL; WBC 8.33 10^3/uL (4.4-10.8)
[2022-11-29 17:28] LABS: ALT 51 U/L (16-63); AST 41 U/L (15-37); Alkaline Phosphatase 144 U/L (46-116); Anion Gap 14.3 mmol/L (3-11); Bilirubin, Total 0.4 mg/dL (0.2-1.0); CO2 19.7 mmol/L (21.0-32.0); CREATININE 2.3 mg/dL (0.70-1.30); Chloride 110 mmol/L (98-107); Estimated GFR 29.07 (mL/min/1.73m2); Glucose 246 mg/dL (74-106); NT-proBNP 168 pg/mL (<300); Potassium 5.1 mmol/L (3.5-5.1); Sodium 144 mmol/L (136-145); Total Protein 7.8 g/dL (6.4-8.2)
[2022-11-29 18:44] LABS: BUN 94 mg/dL (7-18)
== END 2022-11-29 16:14 | disposition home or self-care (01) ==
LOC: LBN 16:13
PROVIDERS: PCP Family Medicine; Visit Provider Nurse Practitioner Gerontology
DX: R68.89 Other general symptoms and signs (principal); I10 Essential (primary) hypertension; E11.9 Type 2 diabetes mellitus without complications; N18.9 Chronic kidney disease, unspecified; R06.89 Other abnormalities of breathing
CPT/HCPCS: 80053; 83880; 85025